=== PATIENT | male | born 1965 | race Caucasian/White ===

== ENCOUNTER 2020-08-22 17:27 | Emergency (ER) | payer OTHER ==
--- OUTSIDE RECORDS SUMMARY | 2020-08-22 17:44 | XMS REPORT | Continuity of Care Document ---
:1965 Author Organization [facility] t Address [address] [place] [address] Care Team Providers Name Role Phone Emmanuel Benoit Primary Care Physician FELICIA GARCIA Attending Clinician Unavailable KEYANNA CRUZ Attending Clinician Unavailable CHRISTEL Admitting Clinician Unavailable Problems Condition Condition Condition Status Onset Resolution Last Treating Co mments Source Name Details Category Date Date Treatment Clinician Date NSTEMI NSTEMI Disease Active 2016-[address] [facility] [address] (non-ST ([facility] - elevated elevated 00:00: Medica l myocardial myocardial 00 Ce nter infarction infarction ) ) Allergies, Adverse Reactions, Alerts This patient has no known allergies or adverse reactions. Social History Social Habit Start Date Stop Date Quantity Comments Source Sex Assigned At [facility] Tobacco use and 2017-05-01 2017-05-01 Never used [facility] - exposure 00:00:00 00:00:00 [facility] Alcohol intake 2017-05-01 2017-05-01 Current [facility] 00:00:00 00:00:00 non-drinker of [facility] nter alcohol (finding) Smoking Status Start Date Stop Date Source Never smoker [facility] Medications Ordered Filled Start Stop Current Ordering Indication Dosage Frequency Signature Comments Components Source Medication Medication Date Date Medication? Clinician (SIG) Name Name HYDROcodone 2016-06 Yes 1{tbl} Take [address] -acetaminop 1-24 tablet by Micha bustos (NORCO 16:58: mouth Medica l 10-325) 04 every 6 Center 10-325 mg (six) per tablet hours as needed for Pain. cephalexin 2016-06 Yes 500mg [id number] Take [address] [facility] (KEFLEX) 1-24 [id number] mg by Luke s - 500 MG 16:58: 3D mouth 3 Medical capsule 04 (three) Center times daily. cyclobenzap 2016-06 Yes 10mg Take [address] [facility] [address] [facility] 1-24 by mouth 3 [facility] - (FLEXERIL) 16:58: (three) Medi destiny 10 MG 04 times Center tablet daily as needed for Muscle spasms. ticagrelor 2016-06 Yes 90mg Q.5D [facility] ([facility] 1-24 tablet (90 Micha es - 90 mg Tab 00:00: mg total) Med ical tablet 00 by mouth 2 Center (two) times daily. meclizine Yes 25mg Take [address] [facility] [address] (ANTIVERT) 1-12 tablet (25 Micha es - 25 mg 00:00: mg total) Medical tablet 00 by mouth 3 Center (three) times daily as needed for Dizziness for up to 15 doses. ondansetron Yes 4mg Take [address] [facility] [address] (ZOFRAN-ODT 1-12 tablet (4 Micha es - ) 4 MG 00:00: mg total) Medica l disintegrat 00 by mouth Cent er ing tablet every 8 (eight) hours as needed for Nausea for up to 10 doses. Procedures This patient has no known procedures. Encounters Start End Encounter Admission Attending Care Care Encounter Source Date/Time Date/Time Type Type Clinicians Facility Department ID 2020-05-22 2020-05-22 Outpatient [facility] [id number] TW 05:56:00 05:56:00 Results Test Description Test Time Test Comments Results Result [facility]ly [facility] e Comments CT, EXTREMITY, 2017-05-02 FINAL REPORT PATIENT LOWER, WITH 01:51:00 ID: [id number] CT, CONTRAST, RIGHT EXTREMITY, LOWER, WITH CONTRAST, RIGHT INDICATION: post cath hematoma and ecchymosis COMPARISON: None TECHNIQUE: Post-contrast CT imaging of the right hip. Coronal and sagittal reformatted images are also provided. DOSE REDUCTION: Dose modulation, iterative reconstruction, and/or weight-based adjustment of the mA/kV was utilized to reduce the radiation dose to as low as reasonably achievable. FINDINGS:Soft tissue structures:Subcutaneo us stranding in the area of recent percutaneous intervention. No organized fluid is evident. There is no extravasation of vascular contrast. Muscular compartments are within normal limits. No discrete or superficial soft tissue collection is present. Small volume fluid noted in the midportion of the right inguinal canal. Osseous structures:There is no fracture or malalignment. Presumed remote traumatic injury to the right inferior pubic ramus. Joint spaces are preserved. IMPRESSION: Findings compatible with postprocedural small superficial hematoma in the right inguinal region. No evidence for active bleeding or abscess formation. Signed: JR Cardenas Robert MDReport Verified Date/Time: 05/02/2017 01:51:05 Reading Location: [facility] C013T Transitional Reading Room HROMBIN TIME/INR 2017-05-02 00:39:00 Test Item Value Reference Range Interpretation Comme nts PROTIME (BEAKER) (test code = 759) 10.7 seconds 9.8-12.0 INR (BEAKER) (test code = 370) 1.0 <=5.9 RECOMMENDED COUMADIN/WARFARIN INR THERAPY RANGESSTANDARD DOSE: 2.0 - 3.0 Includes: PROPHYLAXIS forvenous thrombosis, systemic embolization; TREATMENT for venous thrombosis and/or pulmonary embolus.HIGH RISK: Target INR is 2.5-3.5 for patients with mechanical heart valves.BASIC METABOLIC [id number] 00:36:00 Test Item Value Reference Range Interpretation Comments SODIUM (BEAKER) 136 meq/L 135-148 (test code = 381) POTASSIUM (BEAKER) 3.9 meq/L 3.6-5.5 (test code = 379) CHLORIDE (BEAKER) 101 meq/L 98-106 (test code = 382) CO2 (BEAKER) (test 27 meq/L 20-29 code = 355) BLOOD UREA NITROGEN 20 mg/dL 10-26 (BEAKER) (test code = 354) CREATININE (BEAKER) 1.12 mg/dL 0.50-1.20 (test code = 358) GLUCOSE RANDOM 90 mg/dL 70-110 (BEAKER) (test code = 652) CALCIUM (BEAKER) 9.6 mg/dL 8.5-10.5 (test code = 697) EGFR (BEAKER) (test 69 mL/min/1.73 ESTIMA TRENT GFR IS code = 1092) sq m NOT ACCURATE CREATININE CLEARANCE IN PREDICTING GLOMERULAR FILTRATION RATE . ESTIMATED GFR I S NOT APPLICABLE FOR DIALYSIS PATIEN TS. CBC (HEMOGRAM ONLY)2017-05-02 00:26:00 Test Item Value Reference Range Interpretation Comments WHITE BLOOD CELL COUNT (BEAKER) 8.9 K/ L 4.0-10.0 (test code = 775) RED BLOOD CELL COUNT (BEAKER) 5.81 M/ L 4.20-5.80 H (test code = 761) HEMOGLOBIN (BEAKER) (test code = 14.9 GM/DL 13.0-16.8 410) HEMATOCRIT (BEAKER) (test code = 45.5 % 40.0-50.0 411) MEAN CORPUSCULAR VOLUME (BEAKER) 78.3 fL 82.0-98.0 L (test code = 753) MEAN CORPUSCULAR HEMOGLOBIN 25.6 pg 27.0-33.0 L (BEAKER) (test code = 751) MEAN CORPUSCULAR HEMOGLOBIN CONC 32.7 GM/DL 32.0-36.0 (BEAKER) (test code = 752) RED CELL DISTRIBUTION WIDTH 17.3 % 10.3-14.2 H (BEAKER) (test code = 412) PLATELET COUNT (BEAKER) (test 289 K/CU MM 150-430 code = 756) MEAN PLATELET VOLUME (BEAKER) 9.2 fL 6.5-10.5 (test code = 754) NUCLEATED RED BLOOD CELLS 0 /100 WBC 0-0 (BEAKER) (test code = 413) TROPONIN [id number] 05:18:00 Test Item Value Reference Range Interpretation Comments TROPONIN I (BEAKER) (test code = 3.57 ng/mL 0.00-0.15 397) Troponin I (TnI) levels must be interpreted in the context of the presenting symptoms and the clinical findings. Elevated TnI levels indicate myocardial damage, but are not specific for ischemic heart disease. Elevated TnI levels are seen in patients with other cardiac conditions (including myocarditis and congestive heart failure), and slight TnI elevations occur in patients with other conditions, including sepsis, renal failure, acidosis, acute neurological disease, and persistent tachyarrhythmia.CREATINE KINASE (CK), TOTAL AND MB 2017-04-27 05:15:00 Test Item Value Reference Range Interpretation Comments CREATINE KINASE TOTAL (BEAKER) 1097 U/L 40-250 H (test code = 380) CREATINE KINASE-MB (BEAKER) (test 10.8 ng/mL 0.0-4.9 H code = 750) CREATINE KINASE-MB INDEX (BEAKER) 1.0 % (test code = 395) CK-MB Reference Range:<5 Normal5-10 Borderline>10 AbnormalLIPID PANEL 2017-04-27 05:11:00 Test Item Value Reference Range Interpretation Comments TRIGLYCERIDES (BEAKER) (test code = 69 mg/dL 540) CHOLESTEROL (BEAKER) (test code = 107 mg/dL 631) HDL CHOLESTEROL (BEAKER) (test code 34 mg/dL = 976) LDL CHOLESTEROL CALCULATED (BEAKER) 59 mg/dL (test code = 633) Triglyceride Reference Range: Low Risk <150 Borderline 150-199 High Risk 200-499 Very High Risk >=500Cholesterol Reference Range: Low Risk <200 Borderline 200-239 High Risk >240HDL Cholesterol Reference Range: Low Risk >=60 High Risk <40LDL Cholesterol Reference Range: Optimal <100 Near Optimal 100-129 Borderline 130-159 High 160-189 Very High >=[id number] 05:07:00 Test Item Value Reference Range Interpretation Comments MAGNESIUM (BEAKER) (test code = 1.7 mg/dL 1.5-3.0 627) BASIC METABOLIC [id number] 05:07:00 Test Item Value Reference Range Interpretation Comments SODIUM (BEAKER) 138 meq/L 135-148 (test code = 381) POTASSIUM (BEAKER) 3.8 meq/L 3.6-5.5 (test code = 379) CHLORIDE (BEAKER) 106 meq/L 98-106 (test code = 382) CO2 (BEAKER) (test 25 meq/L 20-29 code = 355) BLOOD UREA NITROGEN 10 mg/dL 10-26 (BEAKER) (test code = 354) CREATININE (BEAKER) 1.13 mg/dL 0.50-1.20 (test code = 358) GLUCOSE RANDOM 94 mg/dL 70-110 (BEAKER) (test code = 652) CALCIUM (BEAKER) 8.4 mg/dL 8.5-10.5 L (test code = 697) EGFR (BEAKER) (test 68 mL/min/1.73 ESTIMA TRENT GFR IS code = 1092) sq m NOT ACCURATE CREATININE CLEARANCE IN PREDICTING GLOMERULAR FILTRATION RATE . ESTIMATED GFR I S NOT APPLICABLE FOR DIALYSIS PATIEN TS. HEMOGLOBIN [id number] 04:52:00 Test Item Value Reference Range Interpretation Comments HEMOGLOBIN A1C (BEAKER) (test code = 5.1 % 4.3-6.1 368) CBC W/PLT COUNT & AUTO [id number] 04:38:00 Test Item Value Reference Range Interpretation Comments WHITE BLOOD CELL COUNT (BEAKER) 10.7 K/ L 4.0-10.0 H (test code = 775) RED BLOOD CELL COUNT (BEAKER) 5.35 M/ L 4.20-5.80 (test code = 761) HEMOGLOBIN (BEAKER) (test code = 13.5 GM/DL 13.0-16.8 410) HEMATOCRIT (BEAKER) (test code = 42.0 % 40.0-50.0 411) MEAN CORPUSCULAR VOLUME (BEAKER) 78.5 fL 82.0-98.0 L (test code = 753) MEAN CORPUSCULAR HEMOGLOBIN 25.2 pg 27.0-33.0 L (BEAKER) (test code = 751) MEAN CORPUSCULAR HEMOGLOBIN CONC 32.1 GM/DL 32.0-36.0 (BEAKER) (test code = 752) RED CELL DISTRIBUTION WIDTH 18.1 % 10.3-14.2 H (BEAKER) (test code = 412) PLATELET COUNT (BEAKER) (test 243 K/CU MM 150-430 code = 756) MEAN PLATELET VOLUME (BEAKER) 9.5 fL 6.5-10.5 (test code = 754) NUCLEATED RED BLOOD CELLS 0 /100 WBC 0-0 (BEAKER) (test code = 413) NEUTROPHILS RELATIVE PERCENT 68 % (BEAKER) (test code = 429) LYMPHOCYTES RELATIVE PERCENT 24 % (BEAKER) (test code = 430) MONOCYTES RELATIVE PERCENT 8 % (BEAKER) (test code = 431) EOSINOPHILS RELATIVE PERCENT 1 % (BEAKER) (test code = 432) BASOPHILS RELATIVE PERCENT 0 % (BEAKER) (test code = 437) NEUTROPHILS ABSOLUTE COUNT 7.21 K/ L 1.80-8.00 (BEAKER) (test code = 670) LYMPHOCYTES ABSOLUTE COUNT 2.54 K/ L 1.48-4.50 (BEAKER) (test code = 414) MONOCYTES ABSOLUTE COUNT (BEAKER) 0.80 K/ L 0.00-1.30 (test code = 415) EOSINOPHILS ABSOLUTE COUNT 0.10 K/ L 0.00-0.50 (BEAKER) (test code = 416) BASOPHILS ABSOLUTE COUNT (BEAKER) 0.02 K/ L 0.00-0.20 (test code = 417) TROPONIN [id number] 13:30:00 Test Item Value Reference Range Interpretation Comments TROPONIN I (BEAKER) (test code = 4.24 ng/mL 0.00-0.15 HH 397) Troponin I (TnI) levels must be interpreted in the context of the presenting symptoms and the clinical findings. Elevated TnI levels indicate myocardial damage, but are not specific for ischemic heart disease. Elevated TnI levels are seen in patients with other cardiac conditions (including myocarditis and congestive heart failure), and slight TnI elevations occur in patients with other conditions, including sepsis, renal failure, acidosis, acute neurological disease, and persistent tachyarrhythmia.CREATINE KINASE (CK), TOTAL AND MB 2017-04-26 13:26:00 Test Item Value Reference Range Interpretation Comments CREATINE KINASE TOTAL (BEAKER) 1825 U/L 40-250 H (test code = 380) CREATINE KINASE-MB (BEAKER) (test 26.3 ng/mL 0.0-4.9 H code = 750) CREATINE KINASE-MB INDEX (BEAKER) 1.4 % (test code = 395) CK-MB Reference Range:<5 Normal5-10 Borderline>10 AbnormalLIPID PANEL 2017-04-26 13:26:00 Test Item Value Reference Range Interpretation Comments TRIGLYCERIDES (BEAKER) 78 mg/dL Speci men slightly (test code = 540) hemolyzed CHOLESTEROL (BEAKER) 119 mg/dL Specime n slightly (test code = 631) hemolyzed HDL CHOLESTEROL (BEAKER) 32 mg/dL (test code = 976) LDL CHOLESTEROL 71 mg/dL CALCULATED (BEAKER) (test code = 633) Triglyceride Reference Range: Low Risk <150 Borderline 150-199 High Risk 200-499 Very High Risk >=500Cholesterol Reference Range: Low Risk <200 Borderline 200-239 High Risk >240HDL Cholesterol Reference Range: Low Risk >=60 High Risk <40LDL Cholesterol Reference Range: Optimal <100 Near Optimal 100-129 Borderline 130-159 High 160-189 Very High >=190TROPONIN [id number] 06:52:00 Test Item Value Reference Range Interpretation Comments TROPONIN I (BEAKER) (test code = 2.68 ng/mL 0.00-0.15 397) Troponin I (TnI) levels must be interpreted in the context of the presenting symptoms and the clinical findings. Elevated TnI levels indicate myocardial damage, but are not specific for ischemic heart disease. Elevated TnI levels are seen in patients with other cardiac conditions (including myocarditis and congestive heart failure), and slight TnI elevations occur in patients with other conditions, including sepsis, renal failure, acidosis, acute neurological disease, and persistent tachyarrhythmia.CREATINE KINASE (CK), TOTAL AND MB 2017-04-26 06:52:00 Test Item Value Reference Range Interpretation Comments CREATINE KINASE TOTAL (BEAKER) 1494 U/L 40-250 H (test code = 380) CREATINE KINASE-MB (BEAKER) (test 22.1 ng/mL 0.0-4.9 H code = 750) CREATINE KINASE-MB INDEX (BEAKER) 1.5 % (test code = 395) CK-MB Reference Range:<5 Normal5-10 Borderline>10 AbnormalCT, CHEST WITH IV CONTRAST- PE TEST [id number] 04:49:00Reason for exam:- >EXTREMITY PAINshoulderWhat is the patient's sedation requirement?->No SedationFINAL REPORT CLINICAL HISTORY: Chest pain, elevated d-dimer, recent right upper extremity surgery FINDINGS: Multiple axial images of the chest were performed after the uncomplicated administration of IV contrast, utilizing a pulmonary embolism protocol. Post-processing coronal r eformats were created and interpreted. This exam was performed according to our departmental dose-optimization program, which includes automated exposure control, adjustment of the mA and/or kV according to patient size and/or use of the iterative reconstruction technique. Study quality:Adequate. Comparison:None. Pulmonary arteries: No pulmonary embolism. Lung parenchyma: Curvilinear opacity in thedependent right lung, atelectasis versus scarring Pleural effusion: None. Pneumothorax: None. Tracheobronchial tree: No significant findings. Pulmonary vasculature: No significant findings. Cardiac contours and great vessels: No significant findings. Mediastinum: No significant findings. Lymph Nodes: No adenopathy in the mediastinum or iraj. Skeleton: No acute abnormality. Other: Soft tissue gas in the region of the right deltoid with adjacent subcutaneous and axillary fat stranding, likely related to recent postoperative status. Limited images of upper abdomen: No significant findings. IMPRESSION:No pulmonary embolism. Postsurgical changes in the right shoulder. Curvilinear opacity in the rightlung probably reflects atelectasis. Signed: Marc Parks Verified Date/Time: 04/26/2017 04:49:00 Reading Location: [address] Reading Room VENOUS DOPPLER ARM, [id number] 04:12:00Reason for exam:->EXTREMITY PAINshoulderFINAL REPORT HISTORY: Pain Realtime grayscale, color and spectral Doppler ultrasound of the left upper extremity was performed to evaluate for DVT. There is no occlusive thrombus within the left internal jugular, subclavian, axillary, brachial, basilic, cephalic, radial or ulnar veins. There is normal color and spectral Doppler appearance to the veins of the left upper extremity. IMPRESSION: No left upper extremity DVT. Signed: Marc Parks Verified Date/Time: 04/26/2017 04:12:13 Reading Location: [address] Reading Room B-TYPE NATRIURETIC FACTOR (BNP)2017-04-26 02:46:00 Test Item Value Reference Range Interpretation Comments B-TYPE NATRIURETIC PEPTIDE (BEAKER) 10 pg/mL 0-100 (test code = 700) URINALYSIS WITH MICROSCOPIC IF [id number] 02:40:00 Test Item Value Reference Range Interpretation Comments COLOR (BEAKER) (test code = 470) Yellow CLARITY (BEAKER) (test code = 469) Clear SPECIFIC GRAVITY UA (BEAKER) (test 1.025 1.001-1.035 code = 468) PH UA (BEAKER) (test code = 467) 6.0 5.0-8.0 PROTEIN UA (BEAKER) (test code = Negative Negative 464) GLUCOSE UA (BEAKER) (test code = 250 mg/dL Negative A 365) KETONES UA (BEAKER) (test code = Trace Negative A 371) BILIRUBIN UA (BEAKER) (test code = Negative Negative 462) BLOOD UA (BEAKER) (test code = 461) Negative Negative NITRITE UA (BEAKER) (test code = Negative Negative 465) LEUKOCYTE ESTERASE UA (BEAKER) Negative Negative (test code = 466) UROBILINOGEN UA (BEAKER) (test code 0.2 mg/dL 0.2-1.0 = 463) SOURCE(BEAKER) (test code = 2795) TROPONIN [id number] 02:17:00 Test Item Value Reference Range Interpretation Comments TROPONIN I (BEAKER) (test code = 0.48 ng/mL 0.00-0.15 HH 397) Troponin I (TnI) levels must be interpreted in the context of the presenting symptoms and the clinical findings. Elevated TnI levels indicate myocardial damage, but are not specific for ischemic heart disease. Elevated TnI levels are seen in patients with other cardiac conditions (including myocarditis and congestive heart failure), and slight TnI elevations occur in patients with other conditions, including sepsis, renal failure, acidosis, acute neurological disease, and persistent tachyarrhythmia.CREATINE KINASE (CK), TOTAL AND MB 2017-04-26 02:17:00 Test Item Value Reference Range Interpretation Comments CREATINE KINASE TOTAL (BEAKER) 1080 U/L 40-250 H (test code = 380) CREATINE KINASE-MB (BEAKER) (test 10.4 ng/mL 0.0-4.9 H code = 750) CREATINE KINASE-MB INDEX (BEAKER) 1.0 % (test code = 395) CK-MB Reference Range:<5 Normal5-10 Borderline>10 AbnormalCOMPREHENSIVE METABOLIC [id number] 02:07:00 Test Item Value Reference Range Interpretation Comments TOTAL PROTEIN 7.1 gm/dL 6.0-8.5 (BEAKER) (test code = 770) ALBUMIN (BEAKER) 4.2 g/dL 3.5-5.0 (test code = 1145) ALKALINE PHOSPHATASE 51 U/L 30-115 (BEAKER) (test code = 346) BILIRUBIN TOTAL 0.9 mg/dL 0.1-1.2 (BEAKER) (test code = 377) SODIUM (BEAKER) (test 137 meq/L 135-148 code = 381) POTASSIUM (BEAKER) 4.4 meq/L 3.6-5.5 (test code = 379) CHLORIDE (BEAKER) 104 meq/L 98-106 (test code = 382) CO2 (BEAKER) (test 23 meq/L 20-29 code = 355) BLOOD UREA NITROGEN 14 mg/dL 10-26 (BEAKER) (test code = 354) CREATININE (BEAKER) 1.31 mg/dL 0.50-1.20 H (test code = 358) GLUCOSE RANDOM 133 mg/dL 70-110 H (BEAKER) (test code = 652) CALCIUM (BEAKER) 9.0 mg/dL 8.5-10.5 (test code = 697) AST (SGOT) (BEAKER) 27 U/L 5-40 (test code = 353) ALT (SGPT) (BEAKER) 16 U/L 5-50 (test code = 347) EGFR (BEAKER) (test 58 mL/min/1.73 ESTIMA TRENT GFR IS code = 1092) sq m NOT ACCURATE CREATININE CLEARANCE IN PREDICTING GLOMERULAR FILTRATION RATE . ESTIMATED GFR I S NOT APPLICABLE FOR DIALYSIS PATIEN TS. [id number] 02:02:00 Test Item Value Reference Range Interpretation Comments D-DIMER QUANTITATIVE (BEAKER) 0.68 MG/L FEU <0.50 H (test code = 671) REGARDING D-DIMER RESULTS: The 98% NPV (Negative Predictive Value) for DVT/PE exclusion is 0.50 mg/LFEU as suggested by the pantograph ii engraver and as approved by the FDA.RAD, CHEST, 1 VIEW, NON [id number] 01:56:00Reason for exam:- >EXTREMITY PAINshoulderFINAL REPORT EXAMINATION: AP PORTABLE CHEST RADIOGRAPH CLINICAL INDICATION:Pain IMPRESSION: No comparison studies are available. Thin linear opacities are noted in the perihilar regions. The morphology and distribution favor subsegmental atelectasis or scarring. No evidence of pulmonary edema, pleural effusion or pneumothorax. The heart size is normal. Mediastinal contours are sharp. No evidence of an acute osseous abnormality.. Signed: Sulaiman Sierra MDReport Verified Date/Time: 04/26/2017 01:56:22 Reading Location: [facility] C013T Transitional Reading Room CBC W/PLT COUNT & AUTO [id number] 01:50:00 Test Item Value Reference Range Interpretation Comments WHITE BLOOD CELL COUNT (BEAKER) 13.9 K/ L 4.0-10.0 H (test code = 775) RED BLOOD CELL COUNT (BEAKER) 6.02 M/ L 4.20-5.80 H (test code = 761) HEMOGLOBIN (BEAKER) (test code = 15.2 GM/DL 13.0-16.8 410) HEMATOCRIT (BEAKER) (test code = 47.0 % 40.0-50.0 411) MEAN CORPUSCULAR VOLUME (BEAKER) 78.1 fL 82.0-98.0 L (test code = 753) MEAN CORPUSCULAR HEMOGLOBIN 25.2 pg 27.0-33.0 L (BEAKER) (test code = 751) MEAN CORPUSCULAR HEMOGLOBIN CONC 32.3 GM/DL 32.0-36.0 (BEAKER) (test code = 752) RED CELL DISTRIBUTION WIDTH 17.4 % 10.3-14.2 H (BEAKER) (test code = 412) PLATELET COUNT (BEAKER) (test 290 K/CU MM 150-430 code = 756) MEAN PLATELET VOLUME (BEAKER) 9.7 fL 6.5-10.5 (test code = 754) NUCLEATED RED BLOOD CELLS 0 /100 WBC 0-0 (BEAKER) (test code = 413) NEUTROPHILS RELATIVE PERCENT 88 % (BEAKER) (test code = 429) LYMPHOCYTES RELATIVE PERCENT 7 % (BEAKER) (test code = 430) MONOCYTES RELATIVE PERCENT 4 % (BEAKER) (test code = 431) EOSINOPHILS RELATIVE PERCENT 0 % (BEAKER) (test code = 432) BASOPHILS RELATIVE PERCENT 1 % (BEAKER) (test code = 437) NEUTROPHILS ABSOLUTE COUNT 12.21 K/ L 1.80-8.00 H (BEAKER) (test code = 670) LYMPHOCYTES ABSOLUTE COUNT 1.03 K/ L 1.48-4.50 L (BEAKER) (test code = 414) MONOCYTES ABSOLUTE COUNT (BEAKER) 0.59 K/ L 0.00-1.30 (test code = 415) EOSINOPHILS ABSOLUTE COUNT 0.00 K/ L 0.00-0.50 (BEAKER) (test code = 416) BASOPHILS ABSOLUTE COUNT (BEAKER) 0.10 K/ L 0.00-0.20 (test code = 417)
[2020-08-22 18:28] LABS: Urine Bacteria <20 /HPF (NONE SEEN); Urine RBC <5 /HPF (NONE SEEN)
[2020-08-22] MEDS ORDERED: ACETAMINOPHEN 500 MG TAB ONE (18:58)
[2020-08-22] MEDS ORDERED: MORPHINE 4 MG/ML SYR ONE (18:59)
[2020-08-22] MEDS ORDERED: ONDANSETRON 4 MG/2 ML VIAL ONE (18:59)
[2020-08-22] MEDS ORDERED: NA CHLORIDE 0.9% 1,000 ML ONE (18:59)
[2020-08-22 19:37] LABS: Absolute Lymphocytes (CBC) 1.2 K/uL (0.7-4.9); Basophils % 0.5 % (0-1.3); Lymphocytes % 10.3 % (15.3-44.8); MPV 9.6 fL (7.6-11.3); RBC Red Blood Cell Count 4.95 M/uL (4.33-5.43)
[2020-08-22] MEDS ORDERED: CEFTRIAXONE/SWI 1gm 1 GM/10 ML SYR ONE (19:38)
[2020-08-22 19:51] LABS: Albumin 3.5 g/dL (3.4-5.0); Bilirubin Direct 0.2 mg/dL (0-0.2); Potassium 3.7 mmol/L (3.5-5.1); Protein, Total 6.9 g/dL (6.4-8.2)
[2020-08-22 20:09] LABS: Urine Blood TRACE (NEG); Urine Glucose NEGATIVE (NEG); Urine Protein TRACE (NEG); Urine Specific Gravity 1.025 (1.005-1.030); Urine pH 5.5 (5.0-7.0)
--- NOTE | 2020-08-22 20:36 | RAD REPORT ---
EXAM DESCRIPTION: CTAbdomen Pelvis W Contrast - 08/22/2020 8:16 pm CLINICAL HISTORY: Abdominal pain. fever, perineum pain COMPARISON: No comparisons TECHNIQUE: Biphasic CT imaging of the abdomen and pelvis was performed with 100 ml non-ionic IV cont rast. All CT scans are performed using dose optimization technique as appropriate and may include automated exposure control or mA/KV adjustment according to patient size. FINDINGS: The lung bases are clear. The liver, spleen, pancreas, adrenal glands and kidneys are within normal limits. No bowel obstruction, free air, free fluid or abscess. Appendectomy. No evidence of significant lym phadenopathy. No suspicious bony findings. The prostate gland appears somewhat edematous and prostatitis is a possi bility. IMPRESSION: Possible findings of mild prostatitis.
[2020-08-22] MEDS ORDERED: PHENAZOPYRIDINE 100MG TAB PO ONE (21:24)
[2020-08-22] MEDS ORDERED: KETOROLAC 30 MG/ML INJ ONE (21:24)
[2020-08-22] MEDS ORDERED: levoFLOXacin 500 MG TAB ONE (21:25)
[2020-08-22] MEDS ORDERED: levoFLOXacin 250 MG TAB ONE (21:25)
--- NOTE | 2020-08-22 21:25 | EDPHYS ---
Physician Documentation [facility] Name: Andrew Prasad Age: 55 yrs Sex: Male : 1965 Arrival Date: 08/22/2020 Time: 17:31 Bed 7 Private MD: ED Physician Bob Childress HPI: 08/22 18:05 This 55 yrs old Male presents to ER via Ambulatory with complaints of cp Possible Kidney Stone. 18:05 The patient presents with urinary symptoms, dysuria, urinary frequency, pain in cp perineum. Onset: The symptoms/episode began/occurred 2 day(s) ago. 18:05 Associated signs and symptoms: Pertinent positives: fever, Pertinent negatives: cp abdominal pain, constipation, diarrhea, hematuria, vomiting. Severity of symptoms: in the emergency department the symptoms are unchanged, despite home interventions. Historical: - Allergies: 17:57 Azithromycin; ca1 - Home Meds: 17:57 atorvastatin oral oral [Active]; Metoprolol Tartrate Oral [Active]; Aspirin Oral ca1 [Active]; - PMHx: 17:57 Myocardial infarction; ca1 - PSHx: 17:57 Heart stents; Hernia repair; ca1 - Immunization history:: Flu vaccine is not up to date. - Social history:: Smoking status: Patient denies any tobacco usage or history of. ROS: 18:10 Constitutional: Positive for chills, fever. cp 18:10 Eyes: Negative for injury, pain, redness, and discharge. cp 18:10 ENT: Negative for ear pain, sore throat, difficulty swallowing, difficulty handling secretions. 18:10 Cardiovascular: Negative for chest pain. 18:10 Respiratory: Negative for cough, shortness of breath, wheezing. 18:10 Abdomen/GI: Negative for abdominal pain, nausea, vomiting, and diarrhea. 18:10 : Positive for urinary symptoms, Negative for testicular pain 18:10 Skin: Negative for rash. 18:10 Neuro: Negative for altered mental status, headache, weakness. 18:10 All other systems are negative. Exam: 18:15 Constitutional: The patient appears in no acute distress, alert, awake, non-toxic, well cp developed, well nourished, febrile. 18:15 Head/Face: Normocephalic, atraumatic. cp 18:15 Eyes: Periorbital structures: appear normal, Conjunctiva: normal, no exudate, no injection, Sclera: no appreciated abnormality, Lids and lashes: appear normal, bilaterally. 18:15 ENT: External ear(s): are unremarkable, Nose: is normal, Posterior pharynx: Airway: normal, no evidence of obstruction. 18:15 Neck: ROM/movement: is normal, is supple, without pain, no range of motions limitations. 18:15 Chest/axilla: Inspection: normal, Palpation: is normal, no crepitus, no tenderness. 18:15 Cardiovascular: Rate: tachycardic, Rhythm: regular. 18:15 Respiratory: the patient does not display signs of respiratory distress, Respirations: normal, no use of accessory muscles, labored breathing, is not present, Breath sounds: are clear throughout, no decreased breath sounds, no stridor, no wheezing. 18:15 Abdomen/GI: Inspection: abdomen appears normal, Bowel sounds: active, all quadrants, Palpation: abdomen is soft and non-tender, in all quadrants, rebound tenderness, is not appreciated, voluntary guarding, is not appreciated, involuntary guarding, is not appreciated. 18:15 Back: CVA tenderness, is absent. 18:15 Skin: cellulitis, is not appreciated, no rash present. 18:15 Neuro: Orientation: to person, place \T\ time. Mentation: is normal. Vital Signs: 17:51 BP 142 / 86; Pulse 101; Resp 18 S; Temp 102.2(O); Pulse Ox 97% on R/A; Weight 99.79 kg ca1 (R); Height 5 ft. 8 in. (172.72 cm) (R); Pain 8/10; 20:54 BP 117 / 74; Pulse 85; Resp 18; Temp 98.8(O); Pulse Ox 96% on R/A; mg2 21:40 BP 127 / 70; Pulse 80; Resp 18; Temp 98.7; Pulse Ox 100% ; ea 17:51 Body Mass Index 33.45 (99.79 kg, 172.72 cm) ca1 MDM: 18:00 Patient medically screened. ame 19:00 Differential diagnosis: UTI, urinary retention, prostatitis, urethritis, kidney stone. cp 21:24 Data reviewed: vital signs, nurses notes, lab test result(s), radiologic studies, CT cp scan, and as a result, I will discharge patient. 21:24 Counseling: I had a detailed discussion with the patient and/or guardian regarding: the cp historical points, exam findings, and any diagnostic results supporting the discharge/admit diagnosis, lab results, radiology results, the need for outpatient follow up, a urologist. 21:24 Response to treatment: the patient's symptoms have markedly improved after treatment. cp 21:24 ED course: VSS. Fever resolved. Patient appears non-toxic and tolerating po meds and cp fluids. Will discharge to home for continued monitoring. 08/22 18:00 Order name: Urine Microscopic Only; Complete Time: 19:15 cp 08/22 20:23 Interpretation: Normal except: UWBC 5-10. cp 08/22 18:14 Order name: Basic Metabolic Panel; Complete Time: 20:03 cp 08/22 20:38 Interpretation: Normal except: CRE 1.32; GFR 57. cp 08/22 18:14 Order name: CBC with Diff; Complete Time: 20:03 cp 08/22 20:03 Interpretation: Normal except: WBC 11.20; MALAIKA% 82.2; LYM% 10.3; NEUT A 9.2. cp 08/22 18:14 Order name: Hepatic Function; Complete Time: 20:03 cp 08/22 20:55 Interpretation: Normal except: A/G 1.0. cp 08/22 18:14 Order name: Lipase; Complete Time: 20:03 cp 08/22 18:14 Order name: Lactate; Complete Time: 20:23 cp 08/22 18:14 Order name: Procalcitonin; Complete Time: 20:55 cp 08/22 20:55 Interpretation: Abnormal: Procalcitonin 0.10. cp 08/22 18:14 Order name: Blood Culture Adult (2) cp 08/22 18:16 Order name: Urine Dipstick--Ancillary (enter results); Complete Time: 20:23 eb 08/22 18:29 Order name: Urine Culture EDMS 08/22 19:16 Order name: CT Abd/Pelvis - IV Contrast Only; Complete Time: 20:38 cp 08/22 18:00 Order name: Urine Dipstick-Ancillary (obtain specimen); Complete Time: 18:14 cp 08/22 18:14 Order name: IV Saline Lock; Complete Time: 19:02 cp 08/22 18:14 Order name: Labs collected and sent; Complete Time: 19:02 cp 08/22 20:53 Order name: Vital Signs: please update to include temp; Complete Time: 20:56 cp Administered Medications: 19:00 Drug: NS 0.9% 1000 ml Route: IV; Rate: 1000 ml; Site: right antecubital; bp 19:00 Drug: Tylenol 1000 mg Route: PO; bp 20:00 Follow up: Response: No adverse reaction mg2 19:00 Drug: morphine 4 mg Route: IVP; Site: right antecubital; bp 19:59 Follow up: Response: No adverse reaction mg2 19:00 Drug: Zofran (Ondansetron) 4 mg Route: IVP; Site: right antecubital; bp 19:59 Follow up: Response: No adverse reaction mg2 20:27 Drug: Rocephin - (cefTRIAXone) 1 grams Route: IVPB; Infused Over: 30 mins; Site: right ea antecubital; 21:47 Follow up: Response: No adverse reaction; IV Status: Completed infusion ea 21:23 Drug: TORadol - Ketorolac 15 mg Route: IVP; Site: right antecubital; ea 21:47 Follow up: Response: No adverse reaction ea 21:23 Drug: Pyridium 200 mg Route: PO; ea 21:47 Follow up: Response: No adverse reaction ea 21:24 Drug: LevaQUIN 750 mg Route: PO; ea 21:47 Follow up: Response: No adverse reaction ea Disposition: 08/23 01:21 Co-signature as Attending Physician, Bob Childress MD I agree with the assessment and ame plan of care. Disposition: 08/22/20 21:24 Discharged to Home. Impression: Acute prostatitis. - Condition is Stable. - Discharge Instructions: Prostatitis. - Prescriptions for Ibuprofen 800 mg Oral Tablet - take 1 tablet by ORAL route every 8 hours As needed take with food; 30 tablet. Levaquin 500 mg Oral Tablet - take 1 tablet by ORAL route once daily for 14 days start evening of 08-23-2020; 14 tablet. Tramadol 50 mg Oral Tablet - take 1 tablet by ORAL route every 8 hours as needed; 12 tablet. - Medication Reconciliation Form, Thank You Letter, Antibiotic Education, Prescription Opioid Use form. - Follow up: Private Physician; When: 2 - 3 days; Reason: Recheck today's complaints. - Problem is new. - Symptoms have improved. Signatures: Dispatcher [employer] EDBob Wilhelm MD MD cha Page, Corey, PA PA cp Antunez, Elena, RN RN Eduard Luna RN RN Migdalia Ramires RN RN ca1 Adam Orellana RN mg2 Corrections: (The following items were deleted from the chart) 08/22 21:48 21:24 08/22/2020 21:24 Discharged to Home. Impression: Acute prostatitis. Condition is ea Stable. Forms are Medication Reconciliation Form, Thank You Letter, Antibiotic Education, Prescription Opioid Use. Follow up: Private Physician; When: 2 - 3 days; Reason: Recheck today's complaints. Problem is new. Symptoms have improved. cp
--- NOTE | 2020-08-22 21:25 | ER ---
Nurse's Notes [facility] Name: Andrew Prasad Age: 55 yrs Sex: Male : 1965 Arrival Date: 08/22/2020 Time: 17:31 Bed 7 Private MD: Diagnosis: Acute prostatitis Presentation: 08/22 17:51 Chief complaint: Patient states: Groin pain since yesterday, more on the perineal area. ca1 Reports burning with urination, urinary urgency and frequency. Also reports L lower back. Denies N/V. Denies HX of Kidney stones. Reports HX of L inguinal hernia, repaired. Coronavirus screen: Client denies travel out of the [place] in the last 14 days. fever, Client presents with at least one sign or symptom that may indicate coronavirus-19. Standard/surgical mask placed on the client. Provider contacted for isolation considerations. Ebola Screen: Patient negative for fever greater than or equal to 101.5 degrees Fahrenheit, and additional compatible Ebola Virus Disease symptoms Patient denies exposure to infectious person. Patient denies travel to an Ebola-affected area in the 21 days before illness onset. No symptoms or risks identified at this time. Initial Sepsis Screen: Does the patient meet any 2 criteria? No. Patient's initial sepsis screen is negative. Does the patient have a suspected source of infection? No. Patient's initial sepsis screen is negative. Risk Assessment: Do you want to hurt yourself or someone else? Patient reports no desire to harm self or others. Onset of symptoms was August 22, 2020. 17:51 Method Of Arrival: Ambulatory ca1 17:51 Acuity: JC 3 ca1 Triage Assessment: 18:00 General: Appears in no apparent distress. uncomfortable, Behavior is calm, cooperative, bp appropriate for age. Pain: Complains of pain in pelvis. EENT: No deficits noted. Neuro: No deficits noted. Cardiovascular: No deficits noted. Respiratory: No deficits noted. GI: No signs and/or symptoms were reported involving the gastrointestinal system. : Reports pain in suprapubic area. Derm: No deficits noted. Musculoskeletal: No deficits noted. Historical: - Allergies: 17:57 Azithromycin; ca1 - Home Meds: 17:57 atorvastatin oral oral [Active]; Metoprolol Tartrate Oral [Active]; Aspirin Oral ca1 [Active]; - PMHx: 17:57 Myocardial infarction; ca1 - PSHx: 17:57 Heart stents; Hernia repair; ca1 - Immunization history:: Flu vaccine is not up to date. - Social history:: Smoking status: Patient denies any tobacco usage or history of. Screenin:01 Abuse screen: Denies threats or abuse. Denies injuries from another. Nutritional bp screening: No deficits noted. Tuberculosis screening: No symptoms or risk factors identified. Fall Risk None identified. Assessment: 18:01 General: SEE TRIAGE NOTE. bp 20:16 Reassessment: patient sent to radiology. mg2 20:56 Reassessment: Patient appears in no apparent distress at this time. Patient and/or mg2 family updated on plan of care and expected duration. Pain level reassessed. Patient is alert, oriented x 3, equal unlabored respirations, skin warm/dry/pink. 21:43 Reassessment: Patient and/or family updated on plan of care and expected duration. Pain ea level reassessed. Patient is alert, oriented x 3, equal unlabored respirations, skin warm/dry/pink. Discharge instruction given to patient verbalized the understanding of instruction. Pt left ED ambulatory tolerating well. Patient states feeling better. Vital Signs: 17:51 BP 142 / 86; Pulse 101; Resp 18 S; Temp 102.2(O); Pulse Ox 97% on R/A; Weight 99.79 kg ca1 (R); Height 5 ft. 8 in. (172.72 cm) (R); Pain 8/10; 20:54 BP 117 / 74; Pulse 85; Resp 18; Temp 98.8(O); Pulse Ox 96% on R/A; mg2 21:40 BP 127 / 70; Pulse 80; Resp 18; Temp 98.7; Pulse Ox 100% ; ea 17:51 Body Mass Index 33.45 (99.79 kg, 172.72 cm) ca1 ED Course: 17:31 Patient arrived in ED. as 17:55 Triage completed. ca1 17:57 Arm band placed on right wrist. ca1 17:58 Bob Chavarria PA is PHCP. cp 17:58 Bob Childress MD is Attending Physician. cp 17:59 Eduard Jacobson, ADELA is Primary Nurse. bp 18:01 Patient has correct armband on for positive identification. Bed in low position. Call bp light in reach. Side rails up X2. 19:00 Inserted saline lock: 20 gauge in right antecubital area, using aseptic technique. bp Blood collected. 20:16 CT Abd/Pelvis - IV Contrast Only In Process Unspecified. EDMS 21:44 No provider procedures requiring assistance completed. IV discontinued, intact, ea bleeding controlled, No redness/swelling at site. Pressure dressing applied. Administered Medications: 19:00 Drug: NS 0.9% 1000 ml Route: IV; Rate: 1000 ml; Site: right antecubital; bp 19:00 Drug: Tylenol 1000 mg Route: PO; bp 20:00 Follow up: Response: No adverse reaction mg2 19:00 Drug: morphine 4 mg Route: IVP; Site: right antecubital; bp 19:59 Follow up: Response: No adverse reaction mg2 19:00 Drug: Zofran (Ondansetron) 4 mg Route: IVP; Site: right antecubital; bp 19:59 Follow up: Response: No adverse reaction mg2 20:27 Drug: Rocephin - (cefTRIAXone) 1 grams Route: IVPB; Infused Over: 30 mins; Site: right ea antecubital; 21:47 Follow up: Response: No adverse reaction; IV Status: Completed infusion ea 21:23 Drug: TORadol - Ketorolac 15 mg Route: IVP; Site: right antecubital; ea 21:47 Follow up: Response: No adverse reaction ea 21:23 Drug: Pyridium 200 mg Route: PO; ea 21:47 Follow up: Response: No adverse reaction ea 21:24 Drug: LevaQUIN 750 mg Route: PO; ea 21:47 Follow up: Response: No adverse reaction ea Outcome: 21:24 Discharge ordered by . david 21:44 Discharged to home ambulatory, with family. ea 21:44 Condition: stable 21:44 Discharge instructions given to patient, Instructed on discharge instructions, follow up and referral plans. medication usage, Demonstrated understanding of instructions, follow-up care, medications, Prescriptions given X 3. 21:48 Patient left the ED. ea Signatures: Dispatcher [employer] EDMS Karon Godfrey Corey, PA PA cp Antunez, Elena, RN RN ea Peltier, Brian RN Adam Beavers RN RN mg2 Migdalia Pelayo RN RN ca1 Corrections: (The following items were deleted from the chart) 18:25 17:51 Chief complaint: Patient states: Groin pain since yesterday, more on the perineal ca1 area. Reports burning with urination, urinary urgency and frequency. Also reports L lower back. Denies N/V. Denies HX of Kidney stones. Reports L inguinal hernia, repaired. ca1 20:55 20:54 BP 117 / 74; Pulse 85bpm; Resp 18bpm; Pulse Ox 96% RA; mg2 mg2
[2020-08-22 21:54] VITALS: BP 127/70; TEMP 98.7; O2SAT 100
== END 2020-08-22 21:48 | disposition home or self-care (01) ==
LOC: ER 17:27
DX: N41.0 Acute prostatitis (principal); I25.2 Old myocardial infarction; Z95.818 Presence of other cardiac implants and grafts; Z79.82 Long term (current) use of aspirin; Z88.1 Allergy status to other antibiotic agents
CPT/HCPCS: 96365; 87040 ×2; 87088; 85025; 87086; 80048; 36415; 80076; 83605; 83690; 84145; 74177; 96375; 99284; Q9967; J0696; J7030; J2405; 81003; 81015

== ENCOUNTER 2021-02-08 02:33 | Emergency (ER) | payer OTHER ==
--- OUTSIDE RECORDS SUMMARY | 2021-02-08 02:36 | XMS REPORT | Continuity of Care Document ---
:1965 Author Organization [facility] t Address [address] [place] [address] Care Team Providers Name Role Phone Benoit, Benitez Primary Care Physician IRA Attending Clinician Unavailable Tito RAM Attending Clinician Unavailable LAB39 Attending Clinician Unavailable VINCE Attending Clinician Unavailable YASMINE Attending Clinician Unavailable ZENG Attending Clinician Unavailable LAB47 Attending Clinician Unavailable FELICIA GARCIA Attending Clinician Unavailable KEYANNA CRUZ Attending Clinician Unavailable CHRISTEL Admitting Clinician Unavailable Payers Payer Name Policy Type Policy Number Effective Date Expiration Date [place] [address] [id number] 2020 [id number] 00:00:00 Problems Condition Condition Condition Status Onset Resolution Last Treating Co mments Source Name Details Category Date Date Treatment Clinician Date NSTEMI NSTEMI Disease Active 2016-[address] [facility] - elevated elevated 00:00: Medica l myocardial myocardial 00 Ce nter infarction infarction ) ) Allergies, Adverse Reactions, Alerts This patient has no known allergies or adverse reactions. Social History Social Habit Start Date Stop Date Quantity Comments Source Sex Assigned At [facility] Tobacco use and 2017-05-01 2017-05-01 Never used [facility] - exposure 00:00:00 00:00:00 [facility] Alcohol intake 2017-05-01 2017-05-01 Current [facility] es - 00:00:00 00:00:00 non-drinker of Medical Ce nter alcohol (finding) Smoking Status Start Date Stop Date Source Never smoker [facility] Medications Ordered Filled Start Stop Current Ordering Indication Dosage Frequency Signature Comments Components Source Medication Medication Date Date Medication? Clinician (SIG) Name Name HYDROcodone 2016-06 Yes 1{tbl} Take [address] -acetaminop 1-24 tablet by Micha es - hen (NORCO 16:58: mouth Medica l 10-325) 04 every 6 Center 10-325 mg (six) per tablet hours as needed for Pain. cephalexin 2016-06 Yes 500mg [id number] Take [address] [facility] [address] (KEFLEX) 1-24 [id number] mg by Luke s - 500 MG [...] Date/Time Type Type Clinicians Facility Department ID 2021-04-13 2021-04-13 Outpatient MECHELLE ROTH [id number] [place] 15:30:00 15:30:00 KATINA [place] 2021-02-04 2021-02-04 Outpatient DAYRON RAM [id number] [place] 00:00:00 00:00:00 Seybol d 2021-02-04 2021-02-04 Outpatient DAYRON RAM [id number] [place] 00:00:00 00:00:00 Seybol d 2021-02-03 2021-02-03 Outpatient LAB39 MECHELLE ROB [id number] [place] 11:00:00 11:00:00 Seybol d 2021-02-03 2021-02-03 Outpatient DAYRON RAM [id number] [place] 10:15:00 10:15:00 Seybol d 2021-02-01 2021-02-01 Outpatient MARTHA ROB 101 [id number] [place] 00:00:00 00:00:00 MD ALEJANDRO Seybol d 2021-01-28 2021-01-28 Outpatient TEODORO UNDERWOOD [id number] [place] 00:00:00 00:00:00 Seybol d 2021-01-13 2021-01-13 Outpatient MECHELLE ZENG [id number] [place] 00:00:00 00:00:00 DHAVAL restrepo 2021-01-07 2021-01-07 Outpatient MARTHA ROB 101 [id number] [place] 00:00:00 00:00:00 MD ALEJANDRO Seybol d 2021-01-06 2021-01-06 Outpatient MECHELLE ZENG [id number] [place] 00:00:00 00:00:00 DHAVAL restrepo 2020-12-30 2020-12-30 Outpatient LAB47 MECHELLE ROB [id number] [place] 08:15:00 08:15:00 Seybol d 2020-12-29 2020-12-29 Outpatient MECHELLE ZENG [id number] [place] 16:00:00 16:00:00 DHAVAL restrepo 2020-05-22 2020-05-22 Outpatient MHTW MHTW [id number] MHTW 05:56:00 05:56:00 Results Test Description Test Time Test Comments Results Result [facility] e Comments CT, EXTREMITY, 2017-05-02 FINAL REPORT PATIENT LOWER, WITH 01:51:00 ID: [id number] CT, CONTRAST, RIGHT EXTREMITY, LOWER, WITH CONTRAST, [...] MDReport Verified Date/Time: 05/02/2017 01:51:05 Reading Location: [address] Transitional Reading Room HROMBIN TIME/INR 2017-05-02 00:39:00 [...] for patients with mechanical heart valves.BASIC METABOLIC [id number] 00:36:00 Test Item Value Reference Range Interpretation [...] 0-0 (BEAKER) (test code = 413) TROPONIN [id number] 05:18:00 Test Item Value Reference Range Interpretation [...] 100-129 Borderline 130-159 High 160-189 Very High [id number] 05:07:00 Test Item Value Reference Range Interpretation Comments MAGNESIUM (BEAKER) (test code = 1.7 mg/dL 1.5-3.0 627) BASIC METABOLIC [id number] 05:07:00 Test Item Value Reference Range Interpretation [...] NOT APPLICABLE FOR DIALYSIS PATIEN TS. HEMOGLOBIN [id number] 04:52:00 Test Item Value Reference Range Interpretation Comments HEMOGLOBIN A1C (BEAKER) (test code = 5.1 % 4.3-6.1 368) CBC W/PLT COUNT & AUTO [id number] 04:38:00 Test Item Value Reference Range Interpretation [...] L 0.00-0.20 (test code = 417) TROPONIN [id number] 13:30:00 Test Item Value Reference Range Interpretation [...] Borderline 130-159 High 160-189 Very High [id number] [id number] 06:52:00 Test Item Value Reference Range Interpretation [...] AbnormalCT, CHEST WITH IV CONTRAST- PE TEST [id number] 04:49:00Reason for exam:- >EXTREMITY PAINshoulderWhat is the [...] the rightlung probably reflects atelectasis. Signed: Marc Small Verified Date/Time: 04/26/2017 04:49:00 Reading Location: [address] Reading Room VENOUS DOPPLER ARM, [id number] 04:12:00Reason for exam:->EXTREMITY PAINshoulderFINAL REPORT HISTORY: Pain [...] No left upper extremity DVT. Signed: Marc Small Verified Date/Time: 04/26/2017 04:12:13 Reading Location: [address] Reading Room B-TYPE NATRIURETIC FACTOR (BNP)2017-04-26 02:46:00 Test Item Value Reference Range Interpretation Comments B-TYPE NATRIURETIC PEPTIDE (BEAKER) 10 pg/mL 0-100 (test code = 700) URINALYSIS WITH MICROSCOPIC IF [id number] 02:40:00 Test Item Value Reference Range Interpretation [...] 463) SOURCE(BEAKER) (test code = 2795) TROPONIN [id number] 02:17:00 Test Item Value Reference Range Interpretation [...] CK-MB Reference Range:<5 Normal5-10 Borderline>10 AbnormalCOMPREHENSIVE METABOLIC [id number] 02:07:00 Test Item Value Reference Range Interpretation [...] S NOT APPLICABLE FOR DIALYSIS PATIEN TS. [id number] 02:02:00 Test Item Value Reference Range Interpretation Comments D-DIMER QUANTITATIVE (BEAKER) 0.68 MG/L FEU <0.50 H (test code = 671) REGARDING D-DIMER RESULTS: The 98% NPV (Negative Predictive Value) for DVT/PE exclusion is 0.50 mg/LFEU as suggested by the interlibrary loan services librarian and as approved by the FDA.RAD, CHEST, 1 VIEW, NON [id number] 01:56:00Reason for exam:- >EXTREMITY PAINshoulderFINAL REPORT EXAMINATION: [...] MDReport Verified Date/Time: 04/26/2017 01:56:22 Reading Location: [address] Reading Room CBC W/PLT COUNT & AUTO [id number] 01:50:00 Test Item Value Reference Range Interpretation [...]
[2021-02-08] MEDS ORDERED: ONDANSETRON 4 MG (ODT) TAB ONE (03:20)
[2021-02-08 04:02] LABS: SARS-COV-2 RT PCR POSITIVE (NEGATIVE)
[2021-02-08] MEDS ORDERED: ACETAMINOPHEN 500 MG TAB ONE (04:11)
[2021-02-08] MEDS ORDERED: METHYLPREDNISOLONE 40 MG INJ ONE (05:39)
[2021-02-08] MEDS ORDERED: PROMETHAZINE INJ 25 MG/ML AMP ONE (06:52)
[2021-02-08] MEDS ORDERED: ALBUTEROL INHALER 60 PUFF/8 GM IH ONE (06:55)
[2021-02-08 07:02] LABS: Absolute Lymphocytes (CBC) 0.6 K/uL (0.7-4.9); Basophils % 0.3 % (0-1.3); MPV 8.5 fL (7.6-11.3); RBC Red Blood Cell Count 5.21 M/uL (4.33-5.43)
[2021-02-08 07:08] LABS: Protime INR 1.13
[2021-02-08 07:19] LABS: ALT/SGPT 25 U/L (12-78); AST/SGOT 20 U/L (15-37); Albumin 3.7 g/dL (3.4-5.0); Alkaline Phosphatase 78 U/L (45-117); BUN Blood Urea Nitrogen 20 mg/dL (7-18); Bicarbonate 25 mmol/L (21-32); Bilirubin Direct 0.1 mg/dL (0-0.2); Bilirubin Total 0.4 mg/dL (0.2-1.0); Glucose Level 105 mg/dL (74-106); Magnesium 2.2 mg/dL (1.8-2.4); NT PRO-BNP 34 pg/mL (<125); Potassium 4.3 mmol/L (3.5-5.1); Protein, Total 6.7 g/dL (6.4-8.2); Sodium Level 136 mmol/L (136-145); Troponin (Emerg Dept Use Only) < 0.02 ng/mL (0.0-0.045)
--- NOTE | 2021-02-08 07:32 | EDPHYS ---
Physician Documentation [facility] Name: Andrew Prasad Age: 55 yrs Sex: Male : 1965 Arrival Date: 02/08/2021 Time: 02:36 Bed 11 Private MD: ED Physician Serg Goldstein HPI: 02/08 03:00 This 55 yrs old Male presents to ER via Ambulatory with complaints of Cough, mh7 Headache, Nausea. 03:28 The patient or guardian reports cough, that is intermittent, described as mild, with no mh7 sputum, flu symptoms, myalgias, Runny nose, congestion, fever, nausea, headache. Onset: The symptoms/episode began/occurred 2 day(s) ago. Severity of symptoms: At their worst the symptoms were moderate, yesterday, in the emergency department the symptoms are unchanged. Modifying factors: The symptoms are alleviated by nothing, the symptoms are aggravated by nothing. Associated signs and symptoms: Pertinent negatives: chest pain, diarrhea, ear ache, sore throat, vomiting. Historical: - Allergies: 02:48 Azithromycin; kg - Home Meds: 02:48 Metoprolol Tartrate Oral [Active]; atorvastatin Oral [Active]; Aspirin Oral [Active]; kg spironolactone Oral [Active]; - PMHx: 02:48 Myocardial infarction; kg - PSHx: 02:48 Appendectomy; Cardiac stent; Hernia; Right shoulder sx; Mitesh Knee Sx; Bicep sx; kg - Immunization history:: Adult Immunizations not up to date, Client reports having NOT received the Covid vaccine. - Social history:: Smoking status: Patient denies any tobacco usage or history of. Patient uses alcohol, occasionally. ROS: 03:28 Eyes: Negative for injury, pain, redness, and discharge, Neck: Negative for injury, mh7 pain, and swelling, Cardiovascular: Negative for chest pain, palpitations, and edema. 03:28 Back: Negative for injury and pain, : Negative for injury, bleeding, discharge, and swelling, MS/Extremity: Negative for injury and deformity, Skin: Negative for injury, rash, and discoloration, Neuro: Negative for headache, weakness, numbness, tingling, and seizure, Psych: Negative for depression, anxiety, suicide ideation, homicidal ideation, and hallucinations, Allergy/Immunology: Negative for hives, rash, and allergies, Endocrine: Negative for neck swelling, polydipsia, polyuria, polyphagia, and marked weight changes, Hematologic/Lymphatic: Negative for swollen nodes, abnormal bleeding, and unusual bruising. 03:28 Abdomen/GI: Negative for abdominal pain, diarrhea, constipation, abdominal cramps, abdominal distension, anorexia, dysphagia, hematemesis, black/tarry stool, rectal pain, rectal bleeding, bowel incontinence, flatulence. Exam: 03:28 Constitutional: This is a well developed, well nourished patient who is awake, alert, mh7 and in no acute distress. Head/Face: Normocephalic, atraumatic. Eyes: Pupils equal round and reactive to light, extra-ocular motions intact. Lids and lashes normal. Conjunctiva and sclera are non-icteric and not injected. Cornea within normal limits. Periorbital areas with no swelling, redness, or edema. Neck: Trachea midline, no thyromegaly or masses palpated, and no cervical lymphadenopathy. Supple, full range of motion without nuchal rigidity, or vertebral point tenderness. No Meningismus. Chest/axilla: Normal chest wall appearance and motion. Nontender with no deformity. No lesions are appreciated. Cardiovascular: Regular rate and rhythm with a normal S1 and S2. No gallops, murmurs, or rubs. Normal PMI, no JVD. No pulse deficits. 03:28 Abdomen/GI: Soft, non-tender, with normal bowel sounds. No distension or tympany. No guarding or rebound. No evidence of tenderness throughout. Back: No spinal tenderness. No costovertebral tenderness. Full range of motion. Skin: Warm, dry with normal turgor. Normal color with no rashes, no lesions, and no evidence of cellulitis. MS/ Extremity: Pulses equal, no cyanosis. Neurovascular intact. Full, normal range of motion. Neuro: Awake and alert, GCS 15, oriented to person, place, time, and situation. Cranial nerves II-XII grossly intact. Motor strength 5/5 in all extremities. Sensory grossly intact. Cerebellar exam normal. Normal gait. Psych: Awake, alert, with orientation to person, place and time. Behavior, mood, and affect are within normal limits. 03:28 Respiratory: the patient does not display signs of respiratory distress, Respirations: normal, Breath sounds: rhonchi, that are mild, are scattered, Respiratory rate: 20 Vital Signs: 02:45 BP 130 / 91; Pulse 96; Resp 20; Temp 99.7(O); Pulse Ox 94% on R/A; Weight 101.6 kg (R); kg Height 5 ft. 9 in. (175.26 cm); Pain 6/10; 03:50 BP 120 / 65; Pulse 84; Resp 22; Temp 100.7(O); Pulse Ox 92% on R/A; cc4 06:40 BP 103 / 68; Pulse 77; Resp 20; Temp 98.1(O); Pulse Ox 94% on R/A; cc4 07:56 BP 103 / 66; Pulse 60; Resp 19; Pulse Ox 92% on R/A; ll1 02:45 Body Mass Index 33.08 (101.60 kg, 175.26 cm) kg MDM: 07:29 Differential Diagnosis: Obstructed Airway Bronchitis Influenza Upper Respiratory mh7 Infection Sinusitis Pharyngitis Viral Syndrome Pneumonia. Data reviewed: vital signs, nurses notes, old medical records, lab test result(s), cardiac enzymes, CBC, electrolytes, Flu: negative Covid positive, EKG, radiologic studies, plain films. Data interpreted: Pulse oximetry: on room air is 94 %. Interpretation: acceptable. Counseling: I had a detailed discussion with the patient and/or guardian regarding: the historical points, exam findings, and any diagnostic results supporting the discharge/admit diagnosis, lab results, radiology results, the need for outpatient follow up, to return to the emergency department if symptoms worsen or persist or if there are any questions or concerns that arise at home. Response to treatment: the patient's symptoms have resolved after treatment, the patient's blood pressure is in an acceptable range, mental status has returned to baseline, the patient no longer shows bradycardia, the patient is not short of breath, the patient is not tachycardic, the patient's pain is gone, the patient's temperature has normalized, patient is well hydrated. 07:32 Patient medically screened. [facility] 02/08 04:03 Order name: COVID-19/FLU A+B; Complete Time: 04:12 EDMS 02/08 04:53 Order name: Basic Metabolic Panel [facility] 02/08 04:53 Order name: CBC with Diff [facility] 02/08 04:53 Order name: LFT's [facility] 02/08 04:53 Order name: Magnesium; Complete Time: 07:22 [facility] 02/08 04:53 Order name: NT PRO-BNP; Complete Time: 07:22 [facility] 02/08 04:53 Order name: PT-INR [facility] 02/08 04:53 Order name: Troponin (emerg Dept Use Only); Complete Time: 07:22 [facility] 02/08 04:53 Order name: Basic Metabolic Panel; Complete Time: 07:22 EDMS 02/08 04:53 Order name: CBC with Automated Diff; Complete Time: 07:06 EDMS 02/08 04:53 Order name: Liver (Hepatic) Function; Complete Time: 07:22 EDMS 02/08 04:54 Order name: Procalcitonin [facility] 02/08 03:32 Order name: Chest Single View XRAY [facility] 02/08 04:53 Order name: EKG; Complete Time: 04:54 [facility] 02/08 04:53 Order name: Cardiac monitoring; Complete Time: 06:53 [facility] 02/08 04:53 Order name: EKG - Nurse/Tech; Complete Time: 06:53 [facility] 02/08 04:53 Order name: IV Saline Lock; Complete Time: 06:53 [facility] 02/08 04:53 Order name: Labs collected and sent; Complete Time: 06:53 [facility] 02/08 04:53 Order name: O2 Per Protocol; Complete Time: 06:53 [facility] 02/08 04:53 Order name: O2 Sat Monitoring; Complete Time: 06:53 [facility] 02/08 04:54 Order name: Lactate; Complete Time: 07:22 [facility] 02/08 04:56 Order name: CRP la1 Administered Medications: 03:02 Drug: Ondansetron 4 mg Route: PO; kg 07:58 Follow up: Response: No adverse reaction ll1 03:55 Drug: Tylenol 1000 mg {Note: Oral temp 100.7; c/o headache..} Route: PO; cc4 07:58 Follow up: Response: No adverse reaction ll1 06:26 Drug: SOLU-Medrol (methylPrednisoLONE) 80 mg Route: IVP; Site: left antecubital; lp1 07:58 Follow up: Response: No adverse reaction ll1 06:38 Drug: Albuterol HFA Inhaler 2 puffs Route: Inhalation; cc4 07:57 Follow up: Response: No adverse reaction ll1 06:40 Drug: Phenergan (promethazine) 12.5 mg Route: IVP; Site: left antecubital; cc4 07:57 Follow up: Response: No adverse reaction; Nausea is decreased ll1 Disposition Summary: 02/08/21 07:32 Discharge Ordered Location: Home [facility] Problem: an ongoing problem [facility] Symptoms: have improved [facility] Condition: Stable 7 Diagnosis - COVID 7 Followup: 7 - With: Private Physician - When: 1 - 2 days - Reason: Worsening of condition, Recheck today's complaints, Continuance of care, Re-evaluation by your physician Followup: 7 - With: Jean Paul Wright MD - When: 1 - 2 days - Reason: Worsening of condition, Recheck today's complaints Discharge Instructions: - Discharge Summary Sheet [facility] - COVID-19 [facility] - COVID-19 Frequently Asked Questions [facility] - COVID-19: Quarantine vs. Isolation - [place] [id number] Forms: - Medication Reconciliation Form 7 - Thank You Letter 7 - Antibiotic Education 7 - Prescription Opioid Use [facility] - Work release form 1 Prescriptions: - albuterol sulfate 90 mcg/actuation Inhalation HFA aerosol inhaler - inhale 2 puff by INHALATION route every 4-6 hours As needed; 1 Inhaler; [facility] Refills: 0, Product Selection Permitted - ondansetron 4 mg Oral tablet,disintegrating - place 1 tablet by TRANSLINGUAL route every 8 hours As needed; 10 tablet; [facility] Refills: 0, Product Selection Permitted - Prednisone 20 mg Oral Tablet - take 2 tablets by ORAL route once daily for 5 days; 10 tablet; Refills: 0, [facility] Product Selection Permitted - promethazine 25 mg Oral Tablet - take 1 tablet by ORAL route every 6 hours As needed; 10 tablet; Refills: 0, [facility] Product Selection Permitted Signatures: Dispatcher [employer] Rosalinda Reza RN RN lp1 Serg Goldstein MD MD 7 Julee Goldberg RN RN kg Cooper, Christie cc4 Sagrario Grossman RN ll1 Corrections: (The following items were deleted from the chart) 03:08 02:52 CORONAVIRUS+MR.LAB.BRZ ordered. EDMS EDMS 03:08 02:54 Influenza Screen (A \T\ B)+BA.JANELL.PARRISH ordered. EDMS EDMS
--- NOTE | 2021-02-08 07:32 | ER ---
Nurse's Notes [facility] Name: Andrew Prasad Age: 55 yrs Sex: Male : 1965 Arrival Date: 02/08/2021 Time: 02:36 Bed 11 Private MD: Diagnosis: COVID Presentation: 02/08 02:45 Chief complaint: Patient states: Headache, nausea, fever, chills, cough x 2 days. kg Coronavirus screen: Vaccine status: Patient reports being unvaccinated. Client denies travel out of the [place] in the last 14 days. chills, cough unrelated to allergies, fever, headache, nausea, Client presents with at least one sign or symptom that may indicate coronavirus-19. Standard/surgical mask placed on the client. Provider contacted for isolation considerations. Ebola Screen: Patient negative for fever greater than or equal to 101.5 degrees Fahrenheit, and additional compatible Ebola Virus Disease symptoms Patient denies exposure to infectious person. Patient denies travel to an Ebola-affected area in the 21 days before illness onset. Initial Sepsis Screen: Does the patient meet any 2 criteria? No. Patient's initial sepsis screen is negative. Does the patient have a suspected source of infection? No. Patient's initial sepsis screen is negative. Risk Assessment: Do you want to hurt yourself or someone else? Patient reports no desire to harm self or others. Onset of symptoms was February 06, 2021. 02:45 Method Of Arrival: Ambulatory kg 02:45 Acuity: JC 4 kg Triage Assessment: 03:50 General: Appears Behavior is calm, cooperative, uncomfortable. Reports chills for fever cc4 for Rec'd to exam rm # 11 via ambulation accompanied by ; reports having cough (productive clear secretions) with nausea/fever/chills/headache since Monday temp 100.7 orally; O2 sat 91-92% on RA; Dr. Goldstein notified with order rec'd to walk pt \T\ monitor O2 sat; tylenol 1000mg given po. 03:50 Pain: Pain: Complains of pain in head; c/o headache since Monday with little relief cc4 from aleve Pain began 2-3 days ago. Also complains of nausea, chills; cough. Neuro: No deficits noted. 04:20 Respiratory: Denies shortness of breath O2 sat 90% while resting upright in chair; cc4 portable O2 sat probe applied to right index finger \T\ ambulated in hallway with O2 sat increasing to 93-95% during ambulation; con't to deny SOB; Dr. Goldstein notified with no additional order rec'd. 04:51 Headache History: The patient has had previous headaches and this one is similar to cc4 previous episodes. Historical: - Allergies: 02:48 Azithromycin; kg - Home Meds: 02:48 Metoprolol Tartrate Oral [Active]; atorvastatin Oral [Active]; Aspirin Oral [Active]; kg spironolactone Oral [Active]; - PMHx: 02:48 Myocardial infarction; kg - PSHx: 02:48 Appendectomy; Cardiac stent; Hernia; Right shoulder sx; Mitesh Knee Sx; Bicep sx; kg - Immunization history:: Adult Immunizations not up to date, Client reports having NOT received the Covid vaccine. - Social history:: Smoking status: Patient denies any tobacco usage or history of. Patient uses alcohol, occasionally. Screenin:47 Abuse screen: Denies threats or abuse. Denies injuries from another. Nutritional kg screening: No deficits noted. Tuberculosis screening: No symptoms or risk factors identified. Fall Risk None identified. Assessment: 02:47 Pain: Complains of pain in Head Pain currently is 6 out of 10 on a pain scale. at worst kg was 6 out of 10 on a pain scale. level that patient reports is acceptable is 3 out of 10 on a pain scale. Quality of pain is described as pressure. 06:26 Reassessment: Patient states symptoms have not improved. GI: Reports nausea. cc4 07:00 Reassessment: No changes from previously documented assessment. Patient and/or family ll1 updated on plan of care and expected duration. Pain level reassessed. Patient is alert, oriented x 3, equal unlabored respirations, skin warm/dry/pink. 07:57 Reassessment: Patient appears in no apparent distress at this time. No changes from ll1 previously documented assessment. Patient and/or family updated on plan of care and expected duration. Pain level reassessed. Patient is alert, oriented x 3, equal unlabored respirations, skin warm/dry/pink. Vital Signs: 02:45 BP 130 / 91; Pulse 96; Resp 20; Temp 99.7(O); Pulse Ox 94% on R/A; Weight 101.6 kg (R); kg Height 5 ft. 9 in. (175.26 cm); Pain 6/10; 03:50 BP 120 / 65; Pulse 84; Resp 22; Temp 100.7(O); Pulse Ox 92% on R/A; cc4 06:40 BP 103 / 68; Pulse 77; Resp 20; Temp 98.1(O); Pulse Ox 94% on R/A; cc4 07:56 BP 103 / 66; Pulse 60; Resp 19; Pulse Ox 92% on R/A; ll1 02:45 Body Mass Index 33.08 (101.60 kg, 175.26 cm) kg ED Course: 02:36 Patient arrived in ED. bp1 02:47 Triage completed. kg 02:47 Patient has correct armband on for positive identification. kg 03:02 Serg Goldstein MD is Attending Physician. mh7 03:44 Conchis Rouse is Primary Nurse. cc4 03:50 Labs ordered per protocol. X-ray ordered. cc4 03:57 Chest Single View XRAY In Process Unspecified. EDMS 04:19 No provider procedures requiring assistance completed. COVID swab sent to lab. X-ray(s) cc4 taken. 06:26 Inserted saline lock: 20 gauge in left antecubital area, using aseptic technique. lp1 07:31 Jean Paul Wright MD is Referral Physician. mh7 07:48 IV discontinued, intact, bleeding controlled, No redness/swelling at site. Pressure ll1 dressing applied. 07:59 Arm band placed on. ll1 Administered Medications: 03:02 Drug: Ondansetron 4 mg Route: PO; kg 07:58 Follow up: Response: No adverse reaction ll1 03:55 Drug: Tylenol 1000 mg {Note: Oral temp 100.7; c/o headache..} Route: PO; cc4 07:58 Follow up: Response: No adverse reaction ll1 06:26 Drug: SOLU-Medrol (methylPrednisoLONE) 80 mg Route: IVP; Site: left antecubital; lp1 07:58 Follow up: Response: No adverse reaction ll1 06:38 Drug: Albuterol HFA Inhaler 2 puffs Route: Inhalation; cc4 07:57 Follow up: Response: No adverse reaction ll1 06:40 Drug: Phenergan (promethazine) 12.5 mg Route: IVP; Site: left antecubital; cc4 07:57 Follow up: Response: No adverse reaction; Nausea is decreased ll1 Outcome: 04:58 Condition: stable cc4 07:32 Discharge ordered by . [facility] 07:58 Discharged to home ambulatory. ll1 07:58 Condition: stable 07:58 Discharge instructions given to patient, family, Instructed on discharge instructions, follow up and referral plans. medication usage, Demonstrated understanding of instructions, follow-up care, medications, Prescriptions given X 4. 07:59 Patient left the ED. ll1 Signatures: Dispatcher [employer] EDMS Rosalinda Morley RN RN 1 Sagrario Grossman RN RN 1 Frieda Mena Maurice, MD MD [facility] Julee Goldberg RN RN kg Conchis Rouse [facility] Corrections: (The following items were deleted from the chart) 03:08 02:54 CORONAVIRUS+MR.LAB.BRZ drawn and sent. EDMA 04:43 04:13 General: Appears Reports chills for fever for Rec'd to exam rm # 11 via cc4 ambulation accompanied by ; reports having cough (productive clear secretions) with nausea/fever/chills/headache since Monday temp 100.7 orally; O2 sat 91-92% on RA; Dr. Goldsetin notified with order rec'd to walk pt \T\ monitor O2 sat; tylenol 1000mg given po. cc4 04:57 04:51 Pain: Complains of pain in face Pain began 2-3 days ago. [facility] cc4 05:01 04:58 Labs ordered per protocol. X-ray ordered. 4 4
[2021-02-08 08:07] VITALS: TEMP 98.1
[2021-02-08 08:08] VITALS: BP 103/66; O2SAT 92
--- NOTE | 2021-02-08 09:29 | RAD REPORT ---
EXAM DESCRIPTION: Ang Single View02/08/2021 3:57 am CLINICAL HISTORY: cough COMPARISON: none FINDINGS: Battery overlies the right chest with wires extending into the right neck. Cylinder metall ic density overlies the lower right lateral chest. The lungs appear clear of acute infiltrate. The heart is normal size IMPRESSION: No acute abnormalities displayed
--- NOTE | 2021-02-09 10:58 | EKG ---
Test Date: 2021-02-08 Test Time: 06:16:06 Brush Maker: YEMI MEASUREMENT RESULTS: Intervals: Rate: 68 LA: 154 QRSD: 90 QT: 408 QTc: 433 [place]: P: -3 LA: 154 QRS: 51 T: 11 INTERPRETIVE STATEMENTS: Normal sinus rhythm Cannot rule out Anterior infarct, age undetermined Abnormal ECG No previous ECG available for comparison Electronically Signed On 02-09-21 10:54:19 CDT by Sergio Wade
== END 2021-02-08 07:59 | disposition home or self-care (01) ==
LOC: ER 02:33
DX: U07.1 COVID-19 (principal); I25.2 Old myocardial infarction; Z95.818 Presence of other cardiac implants and grafts; Z88.1 Allergy status to other antibiotic agents
CPT/HCPCS: 93005; 85025; 80048; 36415; 83735; 85610; 80076; 83605; 84484; 84145; 83880; 0240U; 86140; 71045; 96375; 96374; 99284; J2550; J2920

== ENCOUNTER 2021-08-08 18:14 | Emergency (ER) | payer BC, OTHER ==
--- OUTSIDE RECORDS SUMMARY | 2021-08-08 18:18 | XMS REPORT | Continuity of Care Document ---
:1965 Author Organization [facility] t Address [address] [place] [address] Care Team Providers Name Role Phone VIOLETA HENLEY Primary Care Physician Unavailable MIKIE Attending Clinician Unavailable YASMINE Attending Clinician Unavailable IRA Attending Clinician Unavailable SERA Attending Clinician Unavailable KEYANNA Attending Clinician Unavailable Rufino LOCK Attending Clinician Tito RAM Attending Clinician Unavailable LAB39 Attending Clinician Unavailable VINCE Attending Clinician Unavailable KARRI Attending Clinician Unavailable LAB47 Attending Clinician Unavailable JACIEL TOBAR Attending Clinician Unavailable FELICIA GARCIA Attending Clinician Unavailable KEYANNA CRUZ Attending Clinician Unavailable MIKIE Admitting Clinician Unavailable CHRISTEL Admitting Clinician Unavailable Payers Payer Name Policy Type Policy Number Effective Date Expiration Date S ryan BCBS PPO POS EPO [id number] 2021 [place]ICE 00:00:00 [place] [id number] 2020 [place] [id number] 00:00:00 Problems Condition Condition Condition Status Onset Resolution Last Treating Co mments Source Name Details Category Date Date Treatment Clinician Date Obesity Obesity Disease Active Mechelle (BMI (BMI 7-27 Seybold 30.0-34.9) 30.0-34.9) 00:00: 00 Coronary Coronary Disease Active 2021-0 Kelse y artery artery 12-29 Seybold disease disease 00:00: involving involving 00 lime lime coronary coronary artery of artery of lime lime heart heart History of History of Disease Active K jair heart heart 12-29 Seybold artery artery 00:00: stent stent 00 Vitamin D Vitamin D Disease Active Lex sey deficiency deficiency 12-29 Se ybold 00:00: 00 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-29 Seybold osteoarthr osteoarthr 00:00: itis of itis of 00 knee knee Spondyloli Spondyloli Disease Active K 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 at 12-29 Se ybold L5-S1 L5-S1 00:00: level level 00 Localized Localized Disease Active Lex sey edema edema 12-29 Seybold 00:00: 00 MOUSTAPHA MOUSTAPHA Disease Active Mechelle (obstructi (obstructi 12-29 Se ybold ve sleep ve sleep 00:00: apnea) apnea) 00 NSTEMI NSTEMI Disease Active 2016-[address] [facility] ([facility] ([facility] - elevated elevated 00:00: Medica l myocardial myocardial 00 Ce nter infarction infarction ) ) Allergies, Adverse Reactions, Alerts Allergy Allergy Status Severity Reaction(s) Onset Inactive Treating Comm ents Source Name Type Date Date Clinician NO KNOWN [facility] Social [facility] Social Habit Start Date Stop Date Quantity Comments Source History SDOH Mechelle xie Alcohol Std Drinks History SDOH Mechelle xie Alcohol Binge History SDOH Mechelle [place] Alcohol Comment Exposure to Yes Mechelle torres SARS-CoV-2 (event) Alcohol intake 2021-02-19 2021-02-19 Lifetime Mechelle Kenny bold 00:00:00 00:00:00 non-drinker (finding) Tobacco use and 2020-12-29 2020-12-29 Smokeless tobacco Ke bianca [place] exposure 00:00:00 00:00:00 non-user History SDOH 2020-12-29 2020-12-29 1 Mechelle xie Alcohol Frequency 00:00:00 00:00:00 Sex [birth year] Mechelle Se ybold 00:00:00 00:00:00 Smoking Status Start Date Stop Date Source Never smoked tobacco Mechelle Seyb old Medications Ordered Filled Start Stop Current Ordering Indication Dosage Frequency Signature Comments Components Source Medication Medication Date Date Medication? Clinician (SIG) Name Name ASPIRIN 81 Yes [id number] 1{tbl} Take 1 Mechelle OR 9-17 tablet by Seybold 09:51: mouth 42 daily Ivermectin Yes Mechelle 3 MG oral 9-16 Seybold Tablet 00:00: 00 Benzonatate Yes TAKE ONE Ke lsey 100 MG oral 02-15 (1) Seybold Capsule 00:00: CAPSULE(S) 00 BY MOUTH THREE TIMES A DAY NEEDED FOR COUGH. predniSONE Yes TAKE FOUR Ke lsey (DELTASONE) 12 (4) Seybold 10 MG oral 00:00: TABLET(S) tablet 00 BY MOUTH DAILY X3 DAYS, THREE (3) TABLETS DAILY X3 DAYS, TWO (2) TABLETS DAILY X3 DAYS, ONE (1) TABLET DAILY X3 DAY Nebulizers Yes See Admin Ke lsey (Vios LC 02-14 Instructio Seybo ld Plus) does 00:00: ns not apply 00 Misc Doxycycline Yes 100mg Take 100 K elsey Hyclate 100 9-12 mg by Seybold MG oral 00:00: mouth 2 Capsule 00 times daily Budesonide, Yes INHALE ONE Mechelle Inhalation, 02-14 (1) VIAL Seyb old 1 MG/2ML 00:00: VIA inhalation 00 NEBULIZER Suspension TWICE DAILY FOR 1 WEEK. Albuterol Yes 2{puff} 2 puffs Ke lsey HFA 108 (90 9-06 every 4 to Se ybold Base) 00:00: 6 hours as MCG/ACT IN 00 needed AERS Ondansetron Yes DISSOLVE 1 Mechelle (ZOFRAN) 4 9-06 TABLET IN Seyb old MG oral 00:00: MOUTH TABLET 00 EVERY 8 DISPERSIBLE HOURS NEEDED Furosemide Yes [id number] 20mg Take 1 Mechelle 20 MG oral 7-27 tablet (20 Sey bold Tablet 00:00: mg total) 00 by mouth daily Vitamin D, Yes [id number] 1U Take 1 K elsey Ergocalcife 7-23 unit by Kamo ld rol, 1.25 00:00: mouth 1 MG (91331 00 (one) time UT) oral WEEKLY Capsule Metoprolol Yes [id number] 50mg Take 50 mg Mechelle Succinate 7-02 by mouth Seybol d 50 MG oral 00:00: daily TABLET SR 00 24 HR Atorvastati Yes [id number] 10mg Take 10 mg Mechelle n Calcium 6-16 by mouth Seybol d 20 MG oral 00:00: daily Tablet 00 HYDROcodone 2016-06 Yes 1{tbl} Take [address] -acetaminop 1-24 tablet by Micha es - hen (NORCO 16:58: mouth Medica l 10-325) 04 every 6 Center 10-325 mg (six) per tablet hours as needed for Pain. cephalexin 2016-06 Yes 500mg Q.[id number] Take [address] [facility] (KEFLEX) 1-24 [id number] mg by Luke s - 500 MG 16:58: 3D mouth 3 Medical capsule 04 (three) Center times daily. cyclobenzap 2016-06 Yes 10mg Take [address] [facility] rine 1-24 by mouth 3 [facility] - (FLEXERIL) 16:58: (three) Medi destiny 10 MG 04 times Center tablet daily as needed for Muscle spasms. HYDROcodone 2016-06 Yes 1{tbl} Take [address] -acetaminop 1-24 tablet by Micha es - hen (NORCO 16:58: mouth Medica l 10-325) 04 every 6 Center 10-325 mg (six) per tablet hours as needed for Pain. cephalexin 2016-06 Yes 500mg Q.[id number] Take [address] (KEFLEX) 1-24 [id number] mg by Luke s - 500 MG [...] by mouth 2 Center (two) times daily. ticagrelor 2017-1 Yes 90mg Q.5D Take 1 [facility] (BRILINTA) 1-24 tablet (90 Micha es - 90 mg Tab 00:00: mg total) Med ical tablet 00 by mouth 2 Center (two) times daily. ondansetron 2015-0 Yes 4mg Take [address] [facility] (ZOFRAN-ODT 1-12 tablet (4 Micha es - ) 4 MG 00:00: mg total) Medica l disintegrat 00 by mouth Cent er ing tablet every 8 (eight) hours as needed for Nausea for up to 10 doses. meclizine 2015-0 Yes 25mg Take [address] [facility] (ANTIVERT) 1-12 tablet (25 Micha es - 25 mg 00:00: mg total) Medical tablet 00 by mouth 3 Center (three) times daily as needed for Dizziness for up to 15 doses. ondansetron 2015-0 Yes 4mg Take [address] [facility] (ZOFRAN-ODT 1-12 tablet (4 Micha es - ) 4 MG 00:00: mg total) Medica l disintegrat 00 by mouth Cent er ing tablet every 8 (eight) hours as needed for Nausea for up to 10 doses. meclizine 2015-0 Yes 25mg Take [address] [facility] (ANTIVERT) 1-12 tablet (25 Micha es - 25 mg 00:00: mg total) Medical tablet 00 by mouth 3 Center (three) times daily as needed for Dizziness for up to 15 doses. Vital Signs Vital Name Observation Time Observation Value Comments Source WEIGHT 2021-08-06 07:24:00 107.049 kg HEIGHT 2021-08-06 07:24:00 175.3 cm HEIGHT 2021-08-03 14:48:00 175.3 cm WEIGHT 2021-08-03 14:48:00 107.049 kg Procedures This patient has no known procedures. Encounters Start End Encounter Admission Attending Care Care Encounter Source Date/Time Date/Time Type Type Clinicians Facility Department ID 2021-08-06 2021-08-06 Outpatient YESENIA WILLIS Surgery [id number] [facility] 06:59:00 10:36:00 AGUSTIN 2021-08-04 2021-08-04 Outpatient YESENIA WILLIS [facility] [id number] SL 10:10:00 23:59:00 AGUSTIN 2021 2021 Outpatient TEODORO UNDERWOOD MECHELLE ROB [id number] Mechelle 09:00:00 09:00:00 Seybol d 2021-04-13 2021-04-13 Outpatient IRAMECHELLE [id number] Mechelle 15:30:00 15:30:00 KATINA Seybo ld 2021-04-06 2021-04-06 Outpatient MIRZAITEHRA MECHELLE ROB [id number] Mechelle 14:30:00 14:30:00 NETEODORA 2021-03-25 2021-03-25 Outpatient MECHELLE BRICEÑO [id number] Mechelle 14:30:00 14:30:00 EDWARD Seybol d 2021-03-01 2021-03-01 Outpatient MECHELLE BRICEÑO [id number] Mechelle 14:30:00 14:30:00 EDWARD Seybol d 2021-02-19 2021-02-19 Telemedici FRITZ Joy [id number] Mechelle 09:56:55 10:21:23 ne Simon POWERS [id number] Se old [id number] 2021-02-04 2021-02-04 Outpatient DAYRON RAM [id number] Mechelle 00:00:00 00:00:00 Seybol d 2021-02-04 2021-02-04 Outpatient DAYRON RAM [id number] Mechelle 00:00:00 00:00:00 Seybol d 2021-02-03 2021-02-03 Outpatient LAB39 MECHELLE ROB [id number] Mechelle 11:00:00 11:00:00 Seybol d 2021-02-03 2021-02-03 Outpatient DAYRON RAM [id number] Mechelle 10:15:00 10:15:00 Seybol d 2021-02-01 2021-02-01 Outpatient MARTHA ROB [id number] Mechelle 00:00:00 00:00:00 MD Wale ALLEN 2021-01-28 2021-01-28 Outpatient YASMINETEODORO Villegas MECHELLE [id number] Mechelle 00:00:00 00:00:00 Kamol brian 2021-01-13 2021-01-13 Outpatient MECHELLE ZENG MECHELLE [id number] Mechelle 00:00:00 00:00:00 DHAVAL Segretta old 2021-01-07 2021-01-07 Outpatient JOSE LUISONIrena ROB MECHELLE [id number] Emchelle 00:00:00 00:00:00 MD Wale ALLEN 2021-01-06 2021-01-06 Outpatient LEX ZENGSILVERIO ROB [id number] Mechelle 00:00:00 00:00:00 DHAVAL Segretta old 2020-12-30 2020-12-30 Outpatient LAB47 MECHELLE MECHELLE [id number] Mechelle 08:15:00 08:15:00 Kamol brian 2020-12-29 2020-12-29 Outpatient ZENG, MECHELLE OLIVEIRASEY [id number] Mechelle 16:00:00 16:00:00 DHAVAL Washingtongretta restrepo 2020-05-22 2020-05-22 Outpatient CILREKHAO, MHTW MHTW [id number] MHTW 05:56:00 14:23:00 SHIVA Results Test Description Test Time Test Comments Results Result Comments Source SARS-COV2/RT-PCR ([facility]) 2021-08-04 15:50:56 Test Item Value Reference Range Interpretation Comme nts SARS-COV2/RT-PCR (test code = Negative Negative The SARS-CoV-2 target nucleic [id number]) acids are not d etected in this specimen. Nega tive results do not preclude SA RS-CoV-2 infection and s hould not be used as the sole bas is for patient management deci sions. Negative results must be combined with clinical observ ations, patient history, and ep idemiological information. A false negative result may occu r if a specimen is improperly c ollected, transported or handled. This SARS CoV-2 test is a rapid, real-time RT-PC R test intended for the qualita tive detection of nucleic acid fr om SARS-CoV-2 in a nasopharyngea l swab specimen collected from individuals suspected of CO VID-19 by their healthcare prov ider. This test has been authorized by FDA under an EUA for use by authorized laboratories. This test is only authorized for the duration of the declaration that circumstances exist justifying the authorization of emergency use of in vitro diagnostic tests for detection and/or diagnosis of COVID-19 under Section 564(b)(1) of the Federal Food, Drug and Cosmetic Act, 21 U.S.C. 360bbb- 3(b)(1), unless the authorization is terminated or revoked sooner. Fact Sheet for Healthcare Providers: https://www.Green [employer] Grow/Documents/Xpert%20Xpress%20SARS%20CoV-2/Fact%20Sheets/302-3802%20SARS-COV -2%20HEALTHCARE%20PROVIDERS%20FACT%20SHEET.pdf Fact Sheet for Healthcare Patients: https://www.PinPay/Documents/Xpert %20Xpress%20SARS%20CoV-2/Fact%20Sheets/3023801%04QLAP-DYU-8%20PATIENT%20FACT%20 SHEET.pdfCT, EXTREMITY, LOWER, WITH CONTRAST, [id number] 01:51:00FINAL REPORT CT, EXTREMITY, LOWER, WITH CONTRAST, RIGHT INDICATION: post cathhematoma and ecchymosis COMPARISON: None TECHNIQUE: Post- contrast CT imaging of the right hip. Coronal and sagittal reformatted images are also provided. DOSE REDUCTION: Dose modulation, iterative reconstruction, and/or weight-based adjustment of the mA/kV was utilized to reduce the radiation dose to as low as reasonably achievable. FINDINGS:Soft tissue structures:Subcutaneous stranding in the area of recent percutaneous intervention. No organized fluid is evident. There is no extravasation of vascul ar contrast. Muscular compartments are within normal limits. [...] active bleeding or abscess formation. Signed: JR Ronald, Gordon Brooks Verified Date/Time: 05/02/2017 01:51:05 Reading Location: [address] Transitional Reading Room PROTHROMBIN [id number] 00:39:00 Test Item Value Reference Range Interpretation Comments PROTIME (BEAKER) (test code = 10.7 seconds 9.8-12.0 759) INR (BEAKER) (test code = 370) 1.0 <=5.9 RECOMMENDED COUMADIN/WARFARIN INR THERAPY RANGESSTANDARD DOSE: 2.0 - 3.0 Includes: PROPHYLAXIS forvenous thrombosis, systemic embolization; TREATMENT for venous thrombosis and/or pulmonary embolus.HIGH RISK: Target INR is 2.5-3.5 for patients with mechanical heart valves.BASIC METABOLIC [id number] 00:36:00 Test Item Value Reference Range Interpretation [...] 0-0 (BEAKER) (test code = 413) TROPONIN [id number] 05:18:00 Test Item Value Reference Range Interpretation Comments TROPONIN I (BEAKER) (test code = 3.57 ng/mL 0.00-0.15 HH 397) Troponin I (TnI) [...] 100-129 Borderline 130-159 High 160-189 Very High >=[id number] 05:07:00 Test Item Value Reference Range Interpretation Comments MAGNESIUM (BEAKER) (test code = 1.7 mg/dL 1.5-3.0 627) BASIC METABOLIC [id number] 05:07:00 Test Item Value Reference Range Interpretation [...] NOT APPLICABLE FOR DIALYSIS PATIEN TS. HEMOGLOBIN [id number] 04:52:00 Test Item Value Reference Range Interpretation Comments HEMOGLOBIN A1C (BEAKER) (test code = 5.1 % 4.3-6.1 368) CBC W/PLT COUNT & AUTO [id number] 04:38:00 Test Item Value Reference Range Interpretation [...] L 0.00-0.20 (test code = 417) TROPONIN [id number] 13:30:00 Test Item Value Reference Range Interpretation [...] Borderline 130-159 High 160-189 Very High >=190TROPONIN [id number] 06:52:00 Test Item Value Reference Range Interpretation [...] AbnormalCT, CHEST WITH IV CONTRAST- PE TEST [id number] 04:49:00Reason for exam:- >EXTREMITY PAINshoulderWhat is the [...] rightlung probably reflects atelectasis. Signed: Marc Small MDReport Verified Date/Time: 04/26/2017 04:49:00 Reading Location: [address] Reading Room VENOUS DOPPLER ARM, [id number] 04:12:00Reason for exam:->EXTREMITY PAINshoulderFINAL REPORT HISTORY: Pain [...] left upper extremity DVT. Signed: Marc Small MDReport Verified Date/Time: 04/26/2017 04:12:13 Reading Location: [address] Reading Room B-TYPE NATRIURETIC FACTOR (BNP)2017-04-26 02:46:00 Test Item Value Reference Range Interpretation Comments B-TYPE NATRIURETIC PEPTIDE (BEAKER) 10 pg/mL 0-100 (test code = 700) URINALYSIS WITH MICROSCOPIC IF [id number] 02:40:00 Test Item Value Reference Range Interpretation [...] 463) SOURCE(BEAKER) (test code = 2795) TROPONIN [id number] 02:17:00 Test Item Value Reference Range Interpretation [...] CK-MB Reference Range:<5 Normal5-10 Borderline>10 AbnormalCOMPREHENSIVE METABOLIC [id number] 02:07:00 Test Item Value Reference Range Interpretation [...] S NOT APPLICABLE FOR DIALYSIS PATIEN TS. [id number] 02:02:00 Test Item Value Reference Range Interpretation Comments D-DIMER QUANTITATIVE (BEAKER) 0.68 MG/L FEU <0.50 H (test code = 671) REGARDING D-DIMER RESULTS: The 98% NPV (Negative Predictive Value) for DVT/PE exclusion is 0.50 mg/LFEU as suggested by the business development agent and as approved by the FDA.RAD, CHEST, 1 VIEW, NON [id number] 01:56:00Reason for exam:- >EXTREMITY PAINshoulderFINAL REPORT EXAMINATION: [...] of an acute osseous abnormality.. Signed: Sulaiman Sierraeport Verified Date/Time: 04/26/2017 01:56:22 Reading Location: [address] Reading Room CBC W/PLT COUNT & AUTO [id number] 01:50:00 Test Item Value Reference Range Interpretation [...]
[2021-08-08 19:56] LABS: Absolute Lymphocytes (CBC) 2.4 K/uL (0.7-4.9); Hematocrit 43.7 % (39.6-49.0); Lymphocytes % 30.4 % (15.3-44.8); MPV 8.3 fL (7.6-11.3); RBC Red Blood Cell Count 5.47 M/uL (4.33-5.43)
[2021-08-08 20:08] LABS: Protime INR 1.03
[2021-08-08 20:19] LABS: Potassium 3.9 mmol/L (3.5-5.1)
--- NOTE | 2021-08-08 20:54 | RAD REPORT ---
EXAM DESCRIPTION: RAD - Chest Single View - 08/08/2021 8:08 pm CLINICAL HISTORY: GI bleeding COMPARISON: Portable 02/08/2021 TECHNIQUE: AP portable chest image was obtained 08/08/2021 8:08 pm . FINDINGS: Lungs are clear. Interstitial pattern matches comparison. Battery pack from [employer] r overlies the right-side of the chest. Heart and vasculature are normal. No measurable pleural effus ion and no pneumothorax. No acute bony abnormality seen. No acute aortic findings suspected. IMPRESSION: No acute cardiopulmonary process. No significant change from comparison study.
--- NOTE | 2021-08-08 21:25 | RAD REPORT ---
EXAM DESCRIPTION: CT - Abdomen Pelvis W Contrast - 08/08/2021 8:57 pm CLINICAL HISTORY: Recent colonoscopy with polyp removal;Abd pain;GI bleed COMPARISON: <Comparisons>CT 08/22/2020 TECHNIQUE: Biphasic, helical CT imaging of the abdomen and pelvis was performed following 100 ml non -ionic IV contrast. No oral contrast administered. All CT scans are performed using dose optimization technique as appropriate and may include automated exposure control or mA/KV adjustment according to patient size. FINDINGS: No suspicious findings in the lung bases. The liver, spleen, and pancreas show no suspicious findings. Gallbladder and biliary tree are also wi thout suspicious finding. Symmetric renal function is seen with no hydronephrosis or suspicious renal mass. No pyelonephritis o r acute parenchymal process. No bladder wall thickening or abnormal enhancement. Bladder stones seen. No adrenal abnormalities. Prominent prostate gland along superior margin projecting into the bladder base. This is similar to the examination 1 year earlier. Correlation can be made outpatient follow-u p PSA study. No dilated bowel loops or bowel wall thickening. Appendectomy clips are present. No free air, free fl uid or inflammatory stranding. No hernia, mass or bulky lymphadenopathy. No acute bone findings seen. L5 spondylolysis present with grade 1 spondylolisthesis. Bilateral yuriy inal encroachment seen at L5-S1 due to the subluxation. IMPRESSION: Contrast enhanced CT abdomen and pelvis showing no acute or emergent finding. Above detailed findings are not significantly different from examination 1 year earlier.
[2021-08-08] MEDS ORDERED: NA CHLORIDE 0.9% 500 ML ONE (21:35)
[2021-08-08] MEDS ORDERED: NA CHLORIDE 0.9% 250 ML ONE (21:35)
[2021-08-08] MEDS ORDERED: PANTOPRAZOLE 40 MG INJ ONE (21:35)
--- NOTE | 2021-08-08 21:49 | ER ---
Nurse's Notes [facility] Name: Andrew Prasad Age: 56 yrs Sex: Male : 1965 Arrival Date: 08/08/2021 Time: 18:17 Bed 19 Private MD: Diagnosis: Lower GI bleed, status post colonoscopy with polyp removal Presentation: 08/08 18:22 Chief complaint: Patient states: colonoscopy on Monday08/06/21 and a 30 mm polyp was vg1 removed at [facility] [place] by Dr. Cardenas. Today pt states had diarrhea and the 'toilet was full of blood' and ABD pain that started about an hour ago. Coronavirus screen: Vaccine status: Patient reports being unvaccinated. Client denies travel out of the [place] in the last 14 days. Ebola Screen: Patient negative for fever greater than or equal to 101.5 degrees Fahrenheit, and additional compatible Ebola Virus Disease symptoms. Initial Sepsis Screen: Does the patient meet any 2 criteria? No. Patient's initial sepsis screen is negative. Does the patient have a suspected source of infection? No. Patient's initial sepsis screen is negative. Risk Assessment: Do you want to hurt yourself or someone else? Patient reports no desire to harm self or others. Onset of symptoms was August 08, 2021. 18:22 Method Of Arrival: Ambulatory vg1 18:22 Acuity: JC 3 vg1 Triage Assessment: 18:27 General: Appears in no apparent distress. uncomfortable, Behavior is calm, cooperative. vg1 Pain: Complains of pain in abdomen. GI: Abdomen is flat, non-distended, Reports diarrhea, rectal bleeding, bloody stool. Historical: - Allergies: 18:27 Azithromycin; vg1 - Home Meds: 18:27 Aspirin Oral [Active]; atorvastatin Oral [Active]; Spironolactone Oral [Active]; vg1 Metoprolol Tartrate Oral [Active]; Vitamin D Oral [Active]; - PMHx: 18:27 Myocardial infarction; vg1 - PSHx: 18:27 Appendectomy; Bicep sx; Mitesh knee sx; cardiac stent; hernia; Right shoulder sx; vg1 - Immunization history:: Client reports having NOT received the Covid vaccine. - Social history:: Smoking status: Patient denies any tobacco usage or history of. Screenin:17 Abuse screen: Denies threats or abuse. Nutritional screening: No deficits noted. sv1 Tuberculosis screening: No symptoms or risk factors identified. Fall Risk None identified. Assessment: 22:17 General: Report called to taylor roa. sv1 Vital Signs: 18:22 BP 140 / 100; Pulse 80; Resp 18; Temp 99.0(TE); Pulse Ox 97% ; Weight 107.05 kg; Height vg1 5 ft. 9 in. (175.26 cm); Pain 3/10; 20:45 BP 130 / 66; Pulse 81; Resp 18; mw2 22:17 BP 139 / 77 LA Supine (auto/reg); Pulse 74 MON; Resp 18 S; Temp 98.6(O); Pulse Ox 96% sv1 on R/A; 18:22 Body Mass Index 34.85 (107.05 kg, 175.26 cm) vg1 ED Course: 18:17 Patient arrived in ED. as 18:27 Triage completed. vg1 18:27 Arm band placed on. vg1 19:06 Serg Goldstein MD is Attending Physician. mh7 20:08 Kolton Muñoz, ADELA is Primary Nurse. sv1 20:08 Chest Single View XRAY In Process Unspecified. EDMS 20:42 initiated a transfer with Sheila Lisa from [facility] [place]. mw2 20:47 Type And Screen Sent. sv1 20:48 COVID-19 SARS RT PCR (Document "Date of Onset" if Symptomatic) Sent. sv1 20:48 SARS-COV-2 RT PCR Sent. sv1 20:57 CT Abd/Pelvis - IV Contrast Only In Process Unspecified. EDMS 21:[address] Goldstein with the GI specialist from [facility]. mw2 21:28 Hepatic Function Sent. sv1 21:[address] Goldstein with the Hospitalist from [facility]. mw2 21:52 administrative approval given by Sheila Lisa/ patient has been accepted to [facility]/ Dr. Lorenzo accepted the patient in transfer/ report to be called to [phone]. 22:17 Patient has correct armband on for positive identification. Placed in gown. Bed in low sv1 position. Call light in reach. Side rails up X2. Adult w/ patient. 22:17 Served as a district sales leader during rectal exam. Inserted saline lock: 20 gauge in right sv1 antecubital area, using aseptic technique. 08/09 02:30 gave patient's flipflops to Security to be put in the vault. mw2 Administered Medications: 08/08 21:52 Drug: ProTONIX (pantoprazole) 80 mg Route: IVP; Site: right antecubital; sv1 22:20 Follow up: Response: No adverse reaction sv1 21:52 Drug: ProTONIX (pantoprazole) 8 mg/hr Route: IV; Rate: 25 ml/hr; Site: right sv1 antecubital; 22:20 Follow up: Response: No adverse reaction sv1 21:52 Drug: NS 0.9% 500 ml Route: IV; Rate: bolus; Site: right antecubital; sv1 22:20 Follow up: Response: No adverse reaction sv1 Outcome: 21:48 ER care complete, transfer ordered by MD. willis 22:17 Transferred by ground EMS to [facility]. sv1 23:36 Patient left the ED. sv1 Signatures: Dispatcher [employer] Karon Yoo MyKena 2 Roxann Coelho RN RN 1 Serg Goldstein MD MD 7 Kolton Muñoz RN RN sv1
--- NOTE | 2021-08-08 21:49 | EDPHYS ---
Physician Documentation [facility] Name: Andrew Prasad Age: 56 yrs Sex: Male : 1965 Arrival Date: 08/08/2021 Time: 18:17 Bed 19 Private MD: ED Physician Serg Goldstein HPI: 08/08 19:40 This 56 yrs old Male presents to ER via Ambulatory with complaints of Abdominal mh7 Cramping, Rectal Bleeding - polyp removal 08/06. 19:40 The patient presents to the emergency department with rectal bleeding, a moderate mh7 amount, in toilet bowl, with multiple such episodes. Onset: The symptoms/episode began/occurred today, at 17:30. Abdominal pain: described as crampy, located in the right upper quadrant, left upper quadrant, right lower quadrant and left lower quadrant, that does not radiate. Modifying factors: The symptoms are alleviated by nothing, the symptoms are aggravated by nothing. Associated signs and symptoms: Pertinent negatives: anorexia, chest pain, constipation, diarrhea, dizziness at rest, dizziness when standing, fever, shortness of breath, syncope, near-syncope, vomiting. Severity of symptoms: At their worst the symptoms were moderate today, in the emergency department the symptoms are unchanged. Historical: - Allergies: 18:27 Azithromycin; vg1 - Home Meds: 18:27 Aspirin Oral [Active]; atorvastatin Oral [Active]; Spironolactone Oral [Active]; vg1 Metoprolol Tartrate Oral [Active]; Vitamin D Oral [Active]; - PMHx: 18:27 Myocardial infarction; vg1 - PSHx: 18:27 Appendectomy; Bicep sx; Mitesh knee sx; cardiac stent; hernia; Right shoulder sx; vg1 - Immunization history:: Client reports having NOT received the Covid vaccine. - Social history:: Smoking status: Patient denies any tobacco usage or history of. ROS: 19:40 Constitutional: Negative for fever, chills, and weight loss, Eyes: Negative for injury, mh7 pain, redness, and discharge, ENT: Negative for injury, pain, and discharge, Neck: Negative for injury, pain, and swelling, Cardiovascular: Negative for chest pain, palpitations, and edema, Respiratory: Negative for shortness of breath, cough, wheezing, and pleuritic chest pain, Back: Negative for injury and pain, : Negative for injury, bleeding, discharge, and swelling, MS/Extremity: Negative for injury and deformity, Skin: Negative for injury, rash, and discoloration, Neuro: Negative for headache, weakness, numbness, tingling, and seizure, Psych: Negative for depression, anxiety, suicide ideation, homicidal ideation, and hallucinations, Allergy/Immunology: Negative for hives, rash, and allergies, Endocrine: Negative for neck swelling, polydipsia, polyuria, polyphagia, and marked weight changes. Exam: 19:40 Constitutional: This is a well developed, well nourished patient who is awake, alert, mh7 and in no acute distress. Head/Face: Normocephalic, atraumatic. Eyes: Pupils equal round and reactive to light, extra-ocular motions intact. Lids and lashes normal. Conjunctiva and sclera are non-icteric and not injected. Cornea within normal limits. Periorbital areas with no swelling, redness, or edema. Neck: Trachea midline, no thyromegaly or masses palpated, and no cervical lymphadenopathy. Supple, full range of motion without nuchal rigidity, or vertebral point tenderness. No Meningismus. Chest/axilla: Normal chest wall appearance and motion. Nontender with no deformity. No lesions are appreciated. Cardiovascular: Regular rate and rhythm with a normal S1 and S2. No gallops, murmurs, or rubs. Normal PMI, no JVD. No pulse deficits. Respiratory: Lungs have equal breath sounds bilaterally, clear to auscultation and percussion. No rales, rhonchi or wheezes noted. No increased work of breathing, no retractions or nasal flaring. Back: No spinal tenderness. No costovertebral tenderness. Full range of motion. Skin: Warm, dry with normal turgor. Normal color with no rashes, no lesions, and no evidence of cellulitis. MS/ Extremity: Pulses equal, no cyanosis. Neurovascular intact. Full, normal range of motion. Neuro: Awake and alert, GCS 15, oriented to person, place, time, and situation. Cranial nerves II-XII grossly intact. Motor strength 5/5 in all extremities. Sensory grossly intact. Cerebellar exam normal. Normal gait. Psych: Awake, alert, with orientation to person, place and time. Behavior, mood, and affect are within normal limits. 19:40 Abdomen/GI: Inspection: obese Bowel sounds: normal, in all quadrants, Palpation: [facility] moderate abdominal tenderness, in all quadrants, mass, is not appreciated, rebound tenderness, is not appreciated, voluntary guarding, is not appreciated, involuntary guarding, is not appreciated, no appreciated organomegaly, Rectal exam: rectal tone normal, Stool: grossly bloody, guaiac positive, hemorrhoid(s), are not appreciated, mass, is not appreciated, swelling, is not appreciated, tenderness, is not appreciated, fecal impaction, is not appreciated, the exam is chaperoned by the nurse, Indicators: McBurney's point is not tender, Jesus's sign is negative, Rovsing's sign is negative, Obturator sign is negative, Psoas sign is negative, Liver: no appreciated palpable abnormalities, Hernia: not appreciated. Vital Signs: 18:22 BP 140 / 100; Pulse 80; Resp 18; Temp 99.0(TE); Pulse Ox 97% ; Weight 107.05 kg; Height vg1 5 ft. 9 in. (175.26 cm); Pain 3/10; 20:45 BP 130 / 66; Pulse 81; Resp 18; mw2 22:17 BP 139 / 77 LA Supine (auto/reg); Pulse 74 MON; Resp 18 S; Temp 98.6(O); Pulse Ox 96% sv1 on R/A; 18:22 Body Mass Index 34.85 (107.05 kg, 175.26 cm) vg1 MDM: 21:44 Differential diagnosis: gastritis, diverticulitis, hemorrhoids, hemorrhagic shock, 7 varices, Lower GI bleeding, upper GI bleeding. Data reviewed: vital signs, nurses notes, old medical records, lab test result(s), CBC, electrolytes, radiologic studies, CT scan, plain films. Data interpreted: Pulse oximetry: on room air is 97 %. Interpretation: normal. Counseling: I had a detailed discussion with the patient and/or guardian regarding: the historical points, exam findings, and any diagnostic results supporting the discharge/admit diagnosis, lab results, radiology results, the need to transfer to another facility, Continuity of care with specialist. Response to treatment: the patient's symptoms have mildly improved after treatment. 21:48 Patient medically screened. [facility] 08/08 19:23 Order name: Basic Metabolic Panel [facility] 08/08 19:23 Order name: CBC with Diff; Complete Time: 20:12 [facility] 08/08 19:23 Order name: Hepatic Function [facility] 08/08 19:23 Order name: Lipase [facility] 08/08 19:23 Order name: Protime (+inr); Complete Time: 20:12 [facility] 08/08 19:23 Order name: Ptt, Activated; Complete Time: 20:12 [facility] 08/08 19:23 Order name: Chest Single View XRAY; Complete Time: 21:16 [facility] 08/08 19:23 Order name: Type And Screen; Complete Time: 21:39 [facility] 08/08 20:10 Order name: COVID-19 SARS RT PCR (Document "Date of Onset" if Symptomatic) [facility] 08/08 20:11 Order name: SARS-COV-2 RT PCR; Complete Time: 21:29 [facility] 08/08 20:24 Order name: CT Abd/Pelvis - IV Contrast Only; Complete Time: 21:29 [facility] 08/08 22:03 Order name: Urine Dipstick-Ancillary [facility] 08/08 19:23 Order name: IV Saline Lock; Complete Time: 21:28 [facility] 08/08 19:23 Order name: Labs collected and sent; Complete Time: 21:28 [facility] 08/08 19:23 Order name: Urine Dipstick-Ancillary (obtain specimen) [facility] 08/08 19:23 Order name: EKG; Complete Time: 19:24 [facility] 08/08 19:23 Order name: EKG - Nurse/Tech; Complete Time: 21:53 [facility] Administered Medications: 21:52 Drug: ProTONIX (pantoprazole) 80 mg Route: IVP; Site: right antecubital; sv1 22:20 Follow up: Response: No adverse reaction sv1 21:52 Drug: ProTONIX (pantoprazole) 8 mg/hr Route: IV; Rate: 25 ml/hr; Site: right sv1 antecubital; 22:20 Follow up: Response: No adverse reaction sv1 21:52 Drug: NS 0.9% 500 ml Route: IV; Rate: bolus; Site: right antecubital; sv1 22:20 Follow up: Response: No adverse reaction sv1 Disposition Summary: 08/08/21 21:48 Transfer Ordered Transfer Location: Other Acute Care Facility [facility] Reason: Higher level of care mh7 Condition: Stable mh7 Problem: new mh7 Symptoms: have improved mh7 Accepting Physician: Dr. Lorenzo [facility](08/08/21 23:36) sv1 Diagnosis - Lower GI bleed, status post colonoscopy with polyp removal [facility] Forms: - Medication Reconciliation Form [facility] - SBAR form [facility] Signatures: Dispatcher [employer] EDRoxann Leyva RN RN 1 Serg Goldstein MD MD 7 Kolton Muñoz RN RN sv1 Corrections: (The following items were deleted from the chart) 22:29 21:48 [place] [id number] 22:29 22:29 [place]. [place] [id number] 23:36 22:29 Dr. Lorenzo [address]
[2021-08-08 22:02] LABS: Albumin 3.6 g/dL (3.4-5.0); Bilirubin Direct 0.2 mg/dL (0-0.2); Bilirubin Total 0.5 mg/dL (0.2-1.0); Protein, Total 6.5 g/dL (6.4-8.2)
[2021-08-08 22:04] LABS: Urine Blood Negative (Negative); Urine Glucose Negative (Negative); Urine Protein Negative (Negative); Urine Specific Gravity >=1.030 (1.005-1.030); Urine pH 6.5 (5.0-7.0)
[2021-08-09 00:16] VITALS: BP 139/77; TEMP 98.6; O2SAT 96
== END 2021-08-08 23:36 ==
LOC: ER 18:14
DX: K92.2 Gastrointestinal hemorrhage, unspecified (principal); Z98.890 Other specified postprocedural states; Z79.82 Long term (current) use of aspirin; Z95.818 Presence of other cardiac implants and grafts
CPT/HCPCS: 93005; 85025; 80048; 36415; 86900; 86850; 85610; 86901; 80076; 85730; 81003; 83690; 74177; 71045; 96374; 99285; U0003; Q9967; C9113; J7050; J7040

== ENCOUNTER 2023-02-15 10:22 | Emergency (ER) | payer BC ==
--- OUTSIDE RECORDS SUMMARY | 2023-02-15 10:26 | XMS REPORT | Continuity of Care Document ---
:1965 Author Organization [facility] t Address [address] [facility] [address] [place] [address] Care Team Providers Name Role Phone BREANNA HENLEY Primary Care Physician Unavailable Eduard Haile MD Attending Clinician Franklin Joy Attending Clinician Unavailable LISA CASTRO Attending Clinician Unavailable LATASHA LERMA Attending Clinician Unavailable DIMAS PERSAUD Attending Clinician Unavailable AGUSTIN DELUNA Attending Clinician Unavailable TEODORO UNDERWOOD Attending Clinician Unavailable KATINA ROTH Attending Clinician Unavailable TEODORA ZAMORA Attending Clinician Unavailable EDWARD BRICEÑO Attending Clinician Unavailable Simon Joy DO Attending Clinician DAYRON RAM Attending Clinician Unavailable LAB39 Attending Clinician Unavailable MD VINCE Attending Clinician Unavailable DHAVAL ZENG Attending Clinician Unavailable LAB47 Attending Clinician Unavailable SHIVA TOBAR Attending Clinician Unavailable MILAGRO GARCIA Attending Clinician Unavailable IVY CRUZ Attending Clinician Unavailable LATASHA LERMA Admitting Clinician Unavailable MIKIE AGUSTIN Admitting Clinician Unavailable ALONSO KEARNEY Admitting Clinician Unavailable Payers Payer Name Policy Type Policy Number Effective Date Expiration Date S ource BCBS PPO POS EPO [id number] 2021 CHOICE 00:00:00 [place] [id number] 2020 [place] [id number] 00:00:00 Problems Condition Condition Condition Status Onset Resolution Last Treating Co mments Source Name Details Category Date Date Treatment Clinician Date Hematochez Hematochez Disease Active Overview [facility]: g of this Medical 00 note Center might be different from the original. 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 00:00: itis of itis of 00 knee knee 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 at 7-27 Se ybold L5-S1 L5-S1 00:00: level level 00 Localized Localized Disease Active Lex sey edema edema 12-29 Seybold 00:00: 00 MOUSTAPHA MOUSTAPHA Disease Active Mechelle (obstructi (obstructi 12-29 Se ybold ve sleep ve sleep 00:00: apnea) apnea) 00 NSTEMI NSTEMI Disease Recurre 2016-[address] [facility] (non-ST (non-ST nce 06[facility]26 [facility] elevated elevated 00:00: Medica l myocardial myocardial 00 Ce nter infarction infarction ) ) Allergies, Adverse Reactions, Alerts Allergy Allergy Status Severity Reaction(s) Onset Inactive Treating Comm ents Source Name Type Date Date Clinician Grass Propensi Active Itching Methodi Pollen ty to 5 st adverse 00:00: Hospita reaction 00 l s to drug AZITHROM Allergy Active Low Rash [facility]IN 3-07 [facility] Center Azithrom Propensi Active Rash [facility] y[facility] ty to 3-07 [facility] adverse 00:00: Medical reaction 00 Center s NO KNOWN [facility] Social History Social Habit Start Date Stop Date Quantity Comments Source Exposure to Yes Mechelle torres SARS-CoV-2 (event) Gender identity [facility] Sexual orientation [facility] History SDOH [facility] Alcohol Std Drinks [facility] History SDOH [facility] Alcohol Binge Medical Teodoro ter Alcohol intake 2022-01-24 2022-01-[address] [facility] 00:00:00 00:00:00 non-drinker of Medical nter alcohol (finding) History of Social 2021-11-02 2021-11-[address] function 00:00:00 00:00:00 Hospital Alcohol Comment 2021-08-06 2021-08-[address] [facility] k[facility] 00:00:00 00:00:00 [facility] History SDOH 2021-08-03 2021-08-[address] [facility] Alcohol Frequency 00:00:00 00:00:00 [facility] Tobacco use and 2017-04-26 2017-04-[address] [facility] exposure 00:00:00 00:00:00 tobacco non-user [facility] Sex Assigned At [address] [facility] 00:00:00 00:00:00 [facility] Smoking Status Start Date Stop Date Source Never smoked tobacco [facility] Medications Ordered Filled Start Stop Current Ordering Indication Dosage Frequency Signature Comments Components Source Medication Medication Date Date Medication? Clinician (SIG) Name Name levoFLOXaci 2022- No 750mg QD Take 1 Me thodi n 01-16 08-[address] (LEVAQUIN) 00:00: 04:59 (750 mg Hos jennie 750 MG 00 :00 total) by l tablet mouth daily for 5 days. Start day before procedure until gone aspirin 81 Yes 81mg QD Take [address] MG chewable 01-25 by mouth Luke s tablet 16:20: daily. Medical 01 Center tamsulosin 0 Yes .4mg QD Take 0.[address] (FLOMAX) 8-23 mg by [facility]ukes 0.4 mg Cap 16:20: mouth Medica l 24 hr 01 daily. Center capsule testosteron 0 Yes Q14D Inject Meth juan e cypionate 5-[address] (DEPOTESTOT 05:38: shoulder, H ospita ERONE 57 thigh, or l CYPIONATE) buttocks 200 mg/mL every 14 injection (fourteen) days. atorvastati 2021-0 Yes 40mg QD Take 40 mg Methodi n (LIPITOR) 5-[address] 40 mg 05:38: daily. Hospita tablet 57 l pantoprazol 0 Yes 20mg QD Take 20 mg Methodi e 5-[address] (PROTONIX) 05:38: daily. Hospi ta 20 MG EC 57 l tablet metoprolol 0 Yes 50mg QD Take 50 mg M ethodi succinate 5-[address] XL 05:38: daily. Hospita (TOPROL-XL) 57 l 50 mg 24 hr tablet aspirin 0 Yes 81mg QD Take 81 mg Meth juan (ECOTRIN) 5-[address] 81 MG 05:38: daily. Hospita enteric 57 l coated tablet montelukast 0 Yes 10mg QD Take 10 mg Methodi (SINGULAIR) 5-[address] 10 mg 05:38: nightly. Hospita tablet 57 l atorvastati 2021-0 Yes 10mg QD Take [address] n (LIPITOR) 3-08 by mouth Luke s 10 MG 15:03: daily. Medical tablet 24 Center metoprolol 0 Yes 25mg QD Take [address] succinate 3-08 by mouth [facility] (TOPROL-XL) 15:03: daily. Medi destiny 25 MG 24 hr 24 Center tablet ergocalcife 2021-0 Yes [id number] Q7D Take [facility] rol 3-08 50,000 [facility] (Vitamin 15:03: Units by Medic al D2) 1,250 24 mouth once Cent er mcg (50,000 a week. unit) capsule testosteron 0 Yes 260mg Inject [address] e enanthate 3-08 mg Lukes (DELATESTRY 15:03: intramuscu Medical L) 200 24 larly Center mg/mL every 7 injection days Last dose taken 08/05/2021. ASPIRIN 81 Yes [id number] 1{tbl} Take 1 Mechelle OR 9-17 tablet by Seybold 09:51: mouth 42 daily Ivermectin Yes Mechelle 3 MG oral 9-16 Seybold Tablet 00:00: 00 Benzonatate Yes TAKE ONE Ke lsey 100 MG oral 02-15 (1) Seybold Capsule 00:00: CAPSULE(S) 00 BY MOUTH THREE TIMES A DAY NEEDED FOR COUGH. predniSONE Yes TAKE FOUR Ke lsey (DELTASONE) -12 (4) Seybold 10 MG oral 00:00: TABLET(S) [...] EVERY 8 DISPERSIBLE HOURS NEEDED Furosemide Yes [id number] 20mg Take 1 Mechelle 20 MG oral 7-27 tablet (20 Sey bold Tablet 00:00: mg total) 00 by mouth daily Vitamin D, Yes [id number] 1U Take 1 K elsey Ergocalcife 7-23 unit by Seybo ld rol, 1.25 00:00: mouth 1 MG (62448 00 (one) time UT) oral WEEKLY Capsule Metoprolol Yes [id number] 50mg Take 50 mg Mechelle Succinate 7-02 by mouth Seybol d 50 MG oral 00:00: daily TABLET SR 00 24 HR Atorvastati Yes [id number] 10mg Take 10 mg Mechelle n Calcium 6-16 by mouth Seybol d 20 MG oral 00:00: daily Tablet 00 HYDROcodone 2016-06 Yes 1{tbl} Take [address] -acetaminop 1-24 tablet by Micha es hen (If You Can 16:58: mouth Medica l 10-325) 04 every 6 Center 10-325 mg (six) per tablet hours as needed for Pain. cephalexin 2016-06 Yes 500mg Q.[id number] Take [address] (KEFLEX) 1-24 [id number] mg by Luke s 500 MG 16:58: 3D mouth 3 Medical capsule 04 (three) Center times daily. cyclobenzap 2016-06 Yes 10mg Take [address] rine 1-24 by mouth 3 [facility]ukes (FLEXERIL) 16:58: (three) Medi destiny 10 MG 04 times Center tablet daily as needed for Muscle spasms. HYDROcodone 2016-06 Yes 1{tbl} Take [address] -acetaminop 1-24 tablet by Micha es hen (NORCO 16:58: mouth Medica l 10-325) 04 every 6 Center 10-325 mg (six) per tablet hours as needed for Pain. cephalexin 2016-06 Yes 500mg Q.[id number] Take [address] (KEFLEX) 1-24 [id number] mg by Luke s 500 MG 16:58: 3D mouth 3 Medical capsule 04 (three) Center times daily. cyclobenzap 2016-06 Yes 10mg Take [address] rine 1-24 by mouth 3 [facility]ukes (FLEXERIL) 16:58: (three) Medi destiny 10 MG 04 times Center tablet daily as needed for Muscle spasms. ticagrelor 2016-06 Yes 90mg Q.5D Take 1 [facility] (BRILINTA) 1-24 tablet (90 Micha es 90 mg Tab 00:00: mg total) Med ical tablet 00 by mouth 2 Center (two) times daily. ticagrelor 2016-06 Yes 90mg Q.5D Take 1 [facility] (BRILINTA) 1-24 tablet (90 Micha es 90 mg Tab 00:00: mg total) Med ical tablet 00 by mouth 2 Center (two) times daily. ondansetron Yes 4mg Take [address] (ZOFRAN-ODT 1-12 tablet (4 Micha es ) 4 MG 00:00: mg total) Medica l disintegrat 00 by mouth Cent er ing tablet every 8 (eight) hours as needed for Nausea for up to 10 doses. meclizine Yes 25mg Take [address] (ANTIVERT) 1-12 tablet (25 Micha es 25 mg 00:00: mg total) Medical tablet 00 by mouth 3 Center (three) times daily as needed for Dizziness for up to 15 doses. ondansetron Yes 4mg Take [address] (ZOFRAN-ODT 1-12 tablet (4 Micha es ) 4 MG 00:00: mg total) Medica l disintegrat 00 by mouth Cent er ing tablet every 8 (eight) hours as needed for Nausea for up to 10 doses. meclizine Yes 25mg Take [address] (ANTIVERT) 1-12 tablet (25 Micha es 25 mg 00:00: mg total) Medical tablet 00 by mouth 3 Center (three) times daily as needed for Dizziness for up to 15 doses. Vital Signs Vital Name Observation Time Observation Value Comments Source HEIGHT 2022-01-24 12:49:00 175.3 cm WEIGHT 2022-01-24 12:49:00 108.41 kg HEIGHT 2022-01-24 12:49:00 175.3 cm WEIGHT 2022-01-24 12:49:00 108.41 kg WEIGHT 2021-08-10 07:47:00 107.049 kg HEIGHT 2021-08-09 00:56:00 175.3 cm WEIGHT 2021-08-10 07:47:00 107.049 kg HEIGHT 2021-08-09 00:56:00 175.3 cm WEIGHT 2021-08-06 07:24:00 107.049 kg HEIGHT 2021-08-06 07:24:00 175.3 cm HEIGHT 2021-08-03 14:48:00 175.3 cm WEIGHT 2021-08-03 14:48:00 107.049 kg WEIGHT 2021-08-06 07:24:00 107.049 kg HEIGHT 2021-08-06 07:24:00 175.3 cm HEIGHT 2021-08-03 14:48:00 175.3 cm WEIGHT 2021-08-03 14:48:00 107.049 kg Procedures This patient has no known procedures. Plan of Care Planned Activity Planned Date Details Comments Source Future Scheduled 2031-08-11 [facility] [facility] malignant [facility] Test 00:00:00 neoplasm of colon Medical Ce nter (procedure) [code = 588149914] Future Scheduled 2031-08-11 Screening for malignant [facility] Test 00:00:00 neoplasm of colon Medical Ce nter (procedure) [code = 224157620] Future Scheduled 2023-12-31 Lipid panel (procedure) [facility] Test 00:00:00 [code = 49055830] Medical Ce nter Future Scheduled 2023-02-09 [facility] 12[facility]49:31 [facility] colon Hospital (procedure) [code = 111493114] Future Scheduled 2023-02-09 [facility] 12:49:31 neoplasm of colon Hospital (procedure) [code = 013615921] Future Scheduled 2023-02-09 [facility] 12:49:31 neoplasm of colon Hospital (procedure) [code = 846300496] Future Scheduled 2023-02-09 COVID-19 VACCINE (#1) [facility] 12:49:31 [code = COVID-19 VACCINE Hos pital (#1)] Future Scheduled 2023-02-09 Hepatitis C screening [facility] 12:49:31 (procedure) [code = Hospital 071207917] Future Scheduled 2023-02-09 [facility] malignant [facility] 12:49:31 neoplasm of colon Hospital (procedure) [code = 000042627] Future Scheduled 2023-02-09 Screening for malignant [facility] 12:49:31 neoplasm of colon Hospital (procedure) [code = 753884485] Future Scheduled 2023-02-09 SHINGLES VACCINES (1 of [facility] 12:49:31 2) [code = SHINGLES Hospital VACCINES (1 of 2)] Future Scheduled 2023-02-09 INFLUENZA VACCINE (#1) M ethodist Test 12:49:31 [code = INFLUENZA VACCINE Ho spital (#1)] Future Scheduled 2023-02-03 Influenza Vaccine (#1) [facility] 00:00:00 [code = Influenza Vaccine Vt dical Center (#1)] Future Scheduled 2023-01-[address] [facility] Test 00:00:00 Counseling and Screening [facility] (12+) [code = Tobacco Cessation Counseling and Screening (12+)] Future Scheduled 2022-06-[address] [facility] Test 00:00:00 (12+) [code = DEPRESSION Med ica Center SCREENING (12+)] Future Scheduled 2016 SHINGLES VACCINES ([address] [facility] Test 00:00:00 2) [code = SHINGLES [facility] VACCINES (1 of 2)] Future Scheduled 1985 DTAP/TDAP/TD VACCINES ([address] [facility] Test 00:00:00 - Tdap) [code = Medical Cent er DTAP/TDAP/TD VACCINES (1 - Tdap)] Future Scheduled 1984 HEPATITIS C [facility]CRE[facility]ING [facility] 00:00:00 [code = HEPATITIS C Medical Center SCREENING] Future Scheduled [address] [facility] Test 00:00:00 virus screening Medical Cent er (procedure) [code = 566354312] Future Scheduled 1966 COVID-19 VACCINE (#1) [facility] 00:00:00 [code = COVID-19 VACCINE Med [facility] Center (#1)] Future Scheduled 1966 CT Colonography (combo) [facility] Test 00:00:00 [code = CT Colonography [facility] (combo)] Future Scheduled 1966 Screening for malignant [facility] Test 00:00:00 neoplasm of colon Medical Ce nter (procedure) [code = 757617540] Future Scheduled 1966 Screening for malignant [facility] Test 00:00:00 neoplasm of colon Medical Ce nter (procedure) [code = 308385717] Future Scheduled 1965 Sigmoidoscopy [code = [facility] Test 00:00:00 Sigmoidoscopy] Medical Cente r Encounters Start End Encounter Admission Attending Care Care Encounter Source Date/Time Date/Time Type Type Clinicians Facility Department ID 2022-12-12 [facility] [id number] Common 12:49:00 [id number] [facility] 2022-12-02 Outpatient [facility] [id number] Common 09:10:01 [id number] [facility] 2022-09-15 Outpatient [facility] [id number] Common 13:26:01 [id number] [facility] 2023-01-30 2023-01-30 Telephone Miles, 1.2.840.1 [id number] Methodi 00:00:00 00:00:00 Eduard [place] [address] 3.430.2.7 Hospit a .3.658407 l .8 2023-01-23 2023-01-23 Documentat Rufino, 1.2.840.1 [id number] Methodi 00:00:00 00:00:00 ion [place] [address]356.1.[address] 3.430.2.7 Hospit a .3.713954 l .8 2023-01-16 2023-01-16 Transcribe Miles, 1.2.840.1 [id number] Methodi 00:00:00 00:00:00 Orders Eduard [place] [address]693.1.[address] 3.430.2.7 Hospit a .3.401445 l .8 2023-01-06 2023-01-06 Telephone Miles, 1.2.840.1 [id number] Methodi 00:00:00 00:00:00 Eduard [place] [address]1.[address] 3.430.2.7 Hospit a .3.962147 l .8 2022-11-16 2022-11-16 Telephone Miles, 1.2.840.1 [id number] Methodi 00:00:00 00:00:00 Eduard [place] [address].1.[address] 3.430.2.7 Hospit a .3.069739 l .8 2022-01-24 2022-01-24 Emergency ER LUKENOVICH, [facility] Emergency 20 [id number] [facility] 12:51:00 16:20:00 LISA 2021-11-30 2021-11-30 Outpatient [facility] [id number] [place] 00:00:00 00:00:00 EDUARD Yañez3 [facility] [address] 2021-08-09 2021-08-10 Inpatient ER CORI, [facility] Internal [id number] [facility] 01:05:00 15:00:00 SAFEERA Med 2021-08-06 2021-08-06 Outpatient ANNALISA DELUNA [facility] Surgery [id number] [facility] 06:59:00 10:36:00 AGUSTIN 2021-08-04 2021-08-04 Outpatient ANNALISA DELUNA [facility] [id number] [facility] 10:10:00 23:59:00 AGUSTIN 2021 2021 Outpatient TEODORO UNDERWOOD [id number] [facility]le 09:00:00 09:00:00 Seybol d 2021-04-13 2021-04-13 Outpatient MECHELLE ROTH [id number] [place] 15:30:00 15:30:00 KATINA Seybo ld 2021-04-06 2021-04-06 Outpatient CYN ROB [id number] [place] 14:30:00 14:30:00 TEODORA PLEITEZ 2021-03-25 2021-03-25 Outpatient MECHELLE BRICEÑO [id number] [place] 14:30:00 14:30:00 EDWARD Seybol d 2021-03-01 2021-03-01 Outpatient MECHELLE BRICEÑO [id number] [place] 14:30:00 14:30:00 EDWARD Seybol d 2021-02-19 2021-02-19 Telemedici FRITZ Joy 1.2.840.114 [id number] M[place]le 09:56:55 10:21:23 ne Simon POWERS 350.1.13.13 Se ybold 1.2.7.2.686 [id number] 2021-02-04 2021-02-04 Outpatient DAYRON RAM [id number] [place] 00:00:00 00:00:00 Seybol d 2021-02-04 2021-02-04 Outpatient DAYRON RAM [id number] [place] 00:00:00 00:00:00 Seybol d 2021-02-03 2021-02-03 Outpatient LAB39 MECHELLE ROB [id number] [place] 11:00:00 11:00:00 Seybol d 2021-02-03 2021-02-03 Outpatient DAYRON RAM [id number] [place] 10:15:00 10:15:00 Seybol d 2021-02-01 2021-02-01 Outpatient MARTHA ROB [id number] [place] 00:00:00 00:00:00 MD ALEJANDRO Seybol d 2021-01-28 2021-01-28 Outpatient TEODORO UNDERWOOD [id number] [place] 00:00:00 00:00:00 Seybol d 2021-01-13 2021-01-13 Outpatient MECHELLE ZENG [id number] [place] 00:00:00 00:00:00 DHAVAL Seyb old 2021-01-07 2021-01-07 Outpatient MARTHA ROB 101 [id number] [place] 00:00:00 00:00:00 MD ALEJANDRO Seybol d 2021-01-06 2021-01-06 Outpatient MECHELLE ZENG [id number] [place] 00:00:00 00:00:00 DHAVAL Humphrey old 2020-12-30 2020-12-30 Outpatient LAB47 MECHELLE ROB [id number] [place] 08:15:00 08:15:00 Seybol d 2020-12-29 2020-12-29 Outpatient MECHELLE ZENG [id number] [place] 16:00:00 16:00:00 DHAVAL Humphrey old 2020-05-22 2020-05-22 Outpatient EKATERINA MHEVELYN MHTW [id number] MHTW 05:56:00 14:23:00 SHIVA Results Test Description Test Time Test Comments Results Result Comments Source COMPREHENSIVE METABOLIC PANEL 2022-01-24 14:14:27 Test Item Value Reference Range Interpretation Comme nts TOTAL PROTEIN (BEAKER) 6.7 gm/dL 6.0-8.5 (test code = 770) ALBUMIN (BEAKER) (test 4.0 g/dL 3.5-5.0 code = 1145) ALKALINE PHOSPHATASE 65 U/L 30-115 (BEAKER) (test code = 346) BILIRUBIN TOTAL (BEAKER) 0.6 mg/dL 0.1-1.2 (test code = 377) SODIUM (BEAKER) (test 138 meq/L 135-148 code = 381) POTASSIUM (BEAKER) (test 3.7 meq/L 3.6-5.5 code = 379) CHLORIDE (BEAKER) (test 106 meq/L 98-106 code = 382) CO2 (BEAKER) (test code 26 meq/L 20-29 = 355) BLOOD UREA NITROGEN 19 mg/dL 10-26 (BEAKER) (test code = 354) CREATININE (BEAKER) 1.17 mg/dL 0.50-1.20 (test code = 358) GLUCOSE RANDOM (BEAKER) 108 mg/dL 70-110 (test code = 652) CALCIUM (BEAKER) (test 8.9 mg/dL 8.5-10.5 code = 697) AST (SGOT) (BEAKER) 23 U/L 5-40 (test code = 353) ALT (SGPT) (BEAKER) 16 U/L 5-50 (test code = 347) EGFR (BEAKER) (test code 75 mL/min/1.73 sq Interpretation of eGFR values = 1092) m Stage Descripti on Result G1 Normal or high >=90 G2 Mildly decreased 60-89 G3a Mildly to moderately 45-5 9 G3b Moderately to severely 30- 44 G4 Severly decreased 15-29 G5 Kidney failure <15Repo rted eGFR is based on the CK D-EPI 2020 equation that d oes not use a race coefficien tEstimated GFR is not as accurate as Creatinine Clearance in pr edicting glomerular filt ration rate. Estimated GFR i s not applicable for dialysis misael patel [employer] Engineer ID - [id number] W/PLT COUNT & AUTO [id number] 13:51:36 Test Item Value Reference Range Interpretation Comments WHITE BLOOD CELL COUNT (BEAKER) 6.1 K/ L 4.0-10.0 (test code = 775) RED BLOOD CELL COUNT (BEAKER) 6.29 M/ L 4.20-5.80 H (test code = 761) HEMOGLOBIN (BEAKER) (test code = 13.1 GM/DL 13.0-16.8 410) HEMATOCRIT (BEAKER) (test code = 43.7 % 36.0-50.0 411) MEAN CORPUSCULAR VOLUME (BEAKER) 69.5 fL 82.0-99.0 L (test code = 753) MEAN CORPUSCULAR HEMOGLOBIN 20.8 pg 27.0-33.0 L (BEAKER) (test code = 751) MEAN CORPUSCULAR HEMOGLOBIN CONC 30.0 GM/DL 32.0-36.0 L (BEAKER) (test code = 752) RED CELL DISTRIBUTION WIDTH 21.5 % 12.0-15.0 H (BEAKER) (test code = 412) PLATELET COUNT (BEAKER) (test 306 K/CU MM 150-430 code = 756) MEAN PLATELET VOLUME (BEAKER) 9.0 fL 6.0-11.5 (test code = 754) NUCLEATED RED BLOOD CELLS 0 /100 WBC 0-0 (BEAKER) (test code = 413) NEUTROPHILS RELATIVE PERCENT 56 % (BEAKER) (test code = 429) LYMPHOCYTES RELATIVE PERCENT 34 % (BEAKER) (test code = 430) MONOCYTES RELATIVE PERCENT 6 % (BEAKER) (test code = 431) EOSINOPHILS RELATIVE PERCENT 4 % (BEAKER) (test code = 432) BASOPHILS RELATIVE PERCENT 1 % (BEAKER) (test code = 437) NEUTROPHILS ABSOLUTE COUNT 3.43 K/ L 1.80-8.00 (BEAKER) (test code = 670) LYMPHOCYTES ABSOLUTE COUNT 2.08 K/ L 1.48-4.50 (BEAKER) (test code = 414) MONOCYTES ABSOLUTE COUNT (BEAKER) 0.38 K/ L 0.00-1.30 (test code = 415) EOSINOPHILS ABSOLUTE COUNT 0.22 K/ L 0.00-0.50 (BEAKER) (test code = 416) BASOPHILS ABSOLUTE COUNT (BEAKER) 0.03 K/ L 0.00-0.20 (test code = 417) IMMATURE GRANULOCYTES-RELATIVE 0 % 0-0 PERCENT (BEAKER) (test code = 2801) (MANUAL DIFFERENTIAL)2022-01-24 13:51:36 Test Item Value Reference Range Interpretation Comments TOTAL COUNTED (BEAKER) (test code = 1351) WBC MORPHOLOGY (BEAKER) (test Normal code = 487) PLT MORPHOLOGY (BEAKER) (test Normal code = 486) ANISOCYTOSIS (BEAKER) (test code 2+ moderate = 961) HYPOCHROMIA (BEAKER) (test code = 2+ moderate 963) MICROCYTES (BEAKER) (test code = 2+ moderate 965) TISSUE [id number] 12:07:44Surgical Pathology Report Case: [id number] Authorizing Provider: Melanie Jones MD Collected: 08/10/2021 08:52 AM Ordering Location: [address] MED/SURG Received: 08/10/2021 12:22 PM Pathologist: Hardik Sibley MD Specimen: Polyp, Colon - Right/Ascending, INJECTION OF VISCOUS SOLUTION, HOT SNARE, CLIPPED X3, TATOOED A. ASCENDING COLON, POLYP, BIOPSY:- FRAGMENTS OF TUBULOVILLOUS ADENOMA Signing Pathologist Direct Phone Line: [phone] signed by Fred Sibley MD on 08/11/2021 at12:07 [id number] paperwork, container, and cassette are all labeled [id number].The specimen is received in formalin in a single container labeled with the patient's name (ARNOLD) and medical record number.A. The specimen labeled "polyp, colonright/ascending" consists of multiple fragments of stewart-white tissue measuring 0.1 to 0.5 cm greatest dimension. The specimen is entirely submitted in a single cassette labeled A1.Microscopic examination is performed and is incorporated in the diagnostic line. [facility], Department of Pathology, [address] [place] [address], [facility], Department of Pathology, [address] [place] [id number], [facility], [facility] of Path[facility], [address] [place] [address], J-TYPE NATRIURETIC FACTOR (BNP)2021-08-10 04:34:03 Test Item Value Reference Range Interpretation Comments B-TYPE NATRIURETIC PEPTIDE (BEAKER) 1 pg/mL 0-100 (test code = 700) [employer] Engineer ID - [id number] METABOLIC [id number] 04:33:29 Test Item Value Reference Range Interpretation Comments TOTAL PROTEIN 5.6 gm/dL 6.0-8.5 L Specimen sligh tly (BEAKER) (test code = hemoly zed 770) ALBUMIN (BEAKER) 3.4 g/dL 3.5-5.0 L Specimen sl ightly (test code = 1145) hemolyzed ALKALINE PHOSPHATASE 49 U/L 30-115 (BEAKER) (test code = 346) BILIRUBIN TOTAL 1.2 mg/dL 0.1-1.2 Specimen sli ghtly (BEAKER) (test code = hemoly zed 377) SODIUM (BEAKER) (test 138 meq/L 135-148 code = 381) POTASSIUM (BEAKER) 4.3 meq/L 3.6-5.5 Specimen slightly (test code = 379) hemolyzed CHLORIDE (BEAKER) 107 meq/L 98-106 H (test code = 382) CO2 (BEAKER) (test 24 meq/L 20-29 code = 355) BLOOD UREA NITROGEN 10 mg/dL 10-26 (BEAKER) (test code = 354) CREATININE (BEAKER) 1.05 mg/dL 0.50-1.20 Specimen slightly (test code = 358) hemolyzed GLUCOSE RANDOM 83 mg/dL 70-110 (BEAKER) (test code = 652) CALCIUM (BEAKER) 8.6 mg/dL 8.5-10.5 (test code = 697) AST (SGOT) (BEAKER) 19 U/L 5-40 Specimen slightly (test code = 353) hemolyzed ALT (SGPT) (BEAKER) 14 U/L 5-50 Specimen slightly (test code = 347) hemolyzed EGFR (BEAKER) (test 73 mL/min/1.73 ESTIMA TEA GFR IS code = 1092) sq m NOT ACCURATE CREATININE CLEARANCE IN PREDICTING GLOMERULAR FILTRATION RATE . ESTIMATED GFR I S NOT APPLICABLE FOR DIALYSIS PATIEN TS. Network Operations Center Engineer ID - CLAVSKICBC W/PLT COUNT & AUTO [id number] 04:16:04 Test Item Value Reference Range Interpretation Comments WHITE BLOOD CELL COUNT (BEAKER) 8.1 K/ L 4.0-10.0 (test code = 775) RED BLOOD CELL COUNT (BEAKER) 4.58 M/ L 4.20-5.80 (test code = 761) HEMOGLOBIN (BEAKER) (test code = 11.7 GM/DL 13.0-16.8 L 410) HEMATOCRIT (BEAKER) (test code = 36.8 % 36.0-50.0 411) MEAN CORPUSCULAR VOLUME (BEAKER) 80.3 fL 82.0-99.0 L (test code = 753) MEAN CORPUSCULAR HEMOGLOBIN 25.5 pg 27.0-33.0 L (BEAKER) (test code = 751) MEAN CORPUSCULAR HEMOGLOBIN CONC 31.8 GM/DL 32.0-36.0 L (BEAKER) (test code = 752) RED CELL DISTRIBUTION WIDTH 14.3 % 12.0-15.0 (BEAKER) (test code = 412) PLATELET COUNT (BEAKER) (test 227 K/CU MM 150-430 code = 756) MEAN PLATELET VOLUME (BEAKER) 10.8 fL 6.0-11.5 (test code = 754) NUCLEATED RED BLOOD CELLS 0 /100 WBC 0-0 (BEAKER) (test code = 413) NEUTROPHILS RELATIVE PERCENT 58 % (BEAKER) (test code = 429) LYMPHOCYTES RELATIVE PERCENT 31 % (BEAKER) (test code = 430) MONOCYTES RELATIVE PERCENT 7 % (BEAKER) (test code = 431) EOSINOPHILS RELATIVE PERCENT 3 % (BEAKER) (test code = 432) BASOPHILS RELATIVE PERCENT 0 % (BEAKER) (test code = 437) NEUTROPHILS ABSOLUTE COUNT 4.74 K/ L 1.80-8.00 (BEAKER) (test code = 670) LYMPHOCYTES ABSOLUTE COUNT 2.54 K/ L 1.48-4.50 (BEAKER) (test code = 414) MONOCYTES ABSOLUTE COUNT (BEAKER) 0.53 K/ L 0.00-1.30 (test code = 415) EOSINOPHILS ABSOLUTE COUNT 0.27 K/ L 0.00-0.50 (BEAKER) (test code = 416) BASOPHILS ABSOLUTE COUNT (BEAKER) 0.03 K/ L 0.00-0.20 (test code = 417) IMMATURE GRANULOCYTES-RELATIVE 0 % 0-0 PERCENT (BEAKER) (test code = 2801) HEMOGLOBIN AND [id number] 00:45:01 Test Item Value Reference Range Interpretation Comments HEMOGLOBIN (BEAKER) (test code = 12.6 GM/DL 13.0-16.8 L 410) HEMATOCRIT (BEAKER) (test code = 39.8 % 36.0-50.0 411) HEMOGLOBIN AND [id number] 18:18:01 Test Item Value Reference Range Interpretation Comments HEMOGLOBIN (BEAKER) (test code = 12.3 GM/DL 13.0-16.8 L 410) HEMATOCRIT (BEAKER) (test code = 39.3 % 36.0-50.0 411) HEMORRHAGE IMAGING, [id number] 16:39:00Unlisted Reason for Exam - Click Yes and Enter Reason Below->No [facility] 1965 Sex: MFINALREPORT PROCEDURE: HEMORRHAGE STUDY with RBCs CPT CODE: 79761 INDICATION: Gastrointestinal Bleeding PROTOCOL: 29.0 mCi of Tc-99m was injected intravenously as labeled autologous redblood cells. Flow images of the abdomen were obtained, followed by serial images for approximately 60 minutes. FINDINGS: There is physiological tracer distribution in the blood pool. IMPRESSION: Negative study. No evidence of active hemorrhage is seen on these images through one hour after injection.Additional images are not plan to do to initiation of colonic prep. Signed: Philippe Velarde MDReport Verified Date/Time: 08/09/2021 16:39:08 Reading Location: [address] Reading Room Elect [facility]onva [facility] signed by: PHILIPPE VELARDE MD on 08/09/2021 04:39 PMTISSUE EXAM 2021-08-09 13:43:45Surgical Pathology Report Case: [id number] Authorizing Provider: Agustin Deluna MD Collected: 08/06/2021 09:16 AM Ordering Location: [facility] Received: 08/06/2021 01:14 PM Pathologist: Fred Sibley MD Specimens: A) - Polyp, Colon - Right/Ascending, HOT SNARE B) - Polyp, Colon - Sigmoid, HOT SNARE A. ASCENDING COLON, POLYP, BIOPSY:- FRAGMENTS OF TUBULOVILLOUS ADENOMAB. SIGMOID COLON, POLYP, BIOPSY:- FRAGMENTS OF TUBULOVILLOUS ADENOMA Signing Pathologist Direct Phone Line: [phone] signed by Fred Sibley MD on 08/09/2021 at 1:43 [id number] paperwork, containers, and cassettes are all labeled [id number].The specimen is received in formalin in 2 containers labeled with the patient's name (ARNOLD) and medical record number.A. The specimen labeled "p olyp, colonright/ascending" consists of multiple fragments of stewart-white mucosa ranging from 0.1 to 0.8 cm greatest dimension. The specimen is entirely submitted in a single cassette labeled A1.B. The specimen labeled "polyp, colonsigmoid" consists of multiple fragments of stewart-white tissue measuring 0.1 to 0.3 cm greatest dimension. The specimen is entirely submitted in a single cassette labeled B1.Microscopic examination is performed and is incorporated in the diagnostic line. [facility], Department of Pathology, [address] [place] [address], Xkcfpg [facility], Department of Pathology, [address] [place] [id number], [facility], Department of Pathology, [place] [address], XXTGHPHO I 2021-08-09 12:58:19 Test Item Value Reference Range Interpretation Comments TROPONIN I (BEAKER) (test code = 397) < ng/mL 0.00-0.03 Troponin I (TnI) levels must be interpreted [...] failure, acidosis, acute neurological disease, and persistent tachyarrhythmia.Network Operations Center Engineer ID - BRUCEHEMOGLOBIN AND [id number] 12:36:55 Test Item Value Reference Range Interpretation Comments HEMOGLOBIN (BEAKER) (test code = 12.7 GM/DL 13.0-16.8 L 410) HEMATOCRIT (BEAKER) (test code = 40.3 % 36.0-50.0 411) COMPREHENSIVE METABOLIC [id number] 02:42:05 Test Item Value Reference Range Interpretation Comments TOTAL PROTEIN 5.6 gm/dL 6.0-8.5 L (BEAKER) (test code = 770) ALBUMIN (BEAKER) 3.5 g/dL 3.5-5.0 (test code = 1145) ALKALINE PHOSPHATASE 52 U/L 30-115 (BEAKER) (test code = 346) BILIRUBIN TOTAL 0.6 mg/dL 0.1-1.2 (BEAKER) (test code = 377) SODIUM (BEAKER) (test 140 meq/L 135-148 code = 381) POTASSIUM (BEAKER) 3.9 meq/L 3.6-5.5 (test code = 379) CHLORIDE (BEAKER) 108 meq/L 98-106 H (test code = 382) CO2 (BEAKER) (test 25 meq/L 20-29 code = 355) BLOOD UREA NITROGEN 18 mg/dL 10-26 (BEAKER) (test code = 354) CREATININE (BEAKER) 1.17 mg/dL 0.50-1.20 (test code = 358) GLUCOSE RANDOM 98 mg/dL 70-110 (BEAKER) (test code = 652) CALCIUM (BEAKER) 8.7 mg/dL 8.5-10.5 (test code = 697) AST (SGOT) (BEAKER) 16 U/L 5-40 (test code = 353) ALT (SGPT) (BEAKER) 14 U/L 5-50 (test code = 347) EGFR (BEAKER) (test 65 mL/min/1.73 ESTIMA TEA GFR IS code = 1092) sq m NOT ACCURATE CREATININE CLEARANCE IN PREDICTING GLOMERULAR FILTRATION RATE . ESTIMATED GFR I S NOT APPLICABLE FOR DIALYSIS PATIEN TS. Network Operations Center Engineer ID - CHOPZCBC W/PLT COUNT & AUTO [id number] 02:22:42 Test Item Value Reference Range Interpretation Comments WHITE BLOOD CELL COUNT (BEAKER) 8.1 K/ L 4.0-10.0 (test code = 775) RED BLOOD CELL COUNT (BEAKER) 4.93 M/ L 4.20-5.80 (test code = 761) HEMOGLOBIN (BEAKER) (test code = 13.1 GM/DL 13.0-16.8 410) HEMATOCRIT (BEAKER) (test code = 41.5 % 36.0-50.0 411) MEAN CORPUSCULAR VOLUME (BEAKER) 84.2 fL 82.0-99.0 (test code = 753) MEAN CORPUSCULAR HEMOGLOBIN 26.6 pg 27.0-33.0 L (BEAKER) (test code = 751) MEAN CORPUSCULAR HEMOGLOBIN CONC 31.6 GM/DL 32.0-36.0 L (BEAKER) (test code = 752) RED CELL DISTRIBUTION WIDTH 13.9 % 12.0-15.0 (BEAKER) (test code = 412) PLATELET COUNT (BEAKER) (test 258 K/CU MM 150-430 code = 756) MEAN PLATELET VOLUME (BEAKER) 10.3 fL 6.0-11.5 (test code = 754) NUCLEATED RED BLOOD CELLS 0 /100 WBC 0-0 (BEAKER) (test code = 413) NEUTROPHILS RELATIVE PERCENT 55 % (BEAKER) (test code = 429) LYMPHOCYTES RELATIVE PERCENT 34 % (BEAKER) (test code = 430) MONOCYTES RELATIVE PERCENT 8 % (BEAKER) (test code = 431) EOSINOPHILS RELATIVE PERCENT 3 % (BEAKER) (test code = 432) BASOPHILS RELATIVE PERCENT 1 % (BEAKER) (test code = 437) NEUTROPHILS ABSOLUTE COUNT 4.46 K/ L 1.80-8.00 (BEAKER) (test code = 670) LYMPHOCYTES ABSOLUTE COUNT 2.71 K/ L 1.48-4.50 (BEAKER) (test code = 414) MONOCYTES ABSOLUTE COUNT (BEAKER) 0.65 K/ L 0.00-1.30 (test code = 415) EOSINOPHILS ABSOLUTE COUNT 0.21 K/ L 0.00-0.50 (BEAKER) (test code = 416) BASOPHILS ABSOLUTE COUNT (BEAKER) 0.04 K/ L 0.00-0.20 (test code = 417) IMMATURE GRANULOCYTES-RELATIVE 0 % 0-0 PERCENT (BEAKER) (test code = 2801) SARS-COV2/RT-PCR ([facility])2021-08-04 15:50:56 Test Item Value Reference Range Interpretation Comments SARS-COV2/RT-PCR Negative Negative The SARS-Co V-2 target (test code = nucleic acids a re not [id number]) detected in thi s specimen. Negative result s do not preclude SARS-C oV-2 infection and s hould not be used as the jia e basis for patient managem ent decisions. Nega tive results must be combine d with clinical observ ations, patient history , and epidemiological information. A false negativ e result may occur if a spec imen is improperly tyron ected, transported or handled. This SARS CoV-2 test is a rapid, real-time RT-PC R test intended for th e qualitative detection of nu cleic acid from SARS-CoV-2 in a nasopharyngeal swab specimen collected from individuals suspected of CO VID-19 by their healthcar e provider. This test has been authorized by FDA under an EUA for use by authorized laboratories. This test is only authorized for the duration of the declaration that circumstances exist justifying the authorization of emergency use of in vitro diagnostic tests for detection and/or diagnosis of COVID-19 under Section 564(b)(1) of the Federal Food, Drug and Cosmetic Act, 21 U.S.C. 360bbb-3(b)(1), unless the authorization is terminated or revoked sooner. Fact Sheet for Healthcare Providers: https://www.[employer] m/Documents/Xpert%20Xpress%20SARS%20CoV-2/Fact%20Sheets/970-5065%77DIME-RJR-8%20 HEALTHCARE%20PROVIDERS%20FACT%20SHEET.pdf Fact Sheet for Healthcare Patients: https://www.[employer]/Documents/Xpert%20Xp ress%20SARS%20CoV-2/Fact%20Sheets/302-3801%72DIUE-FVT-0%20PATIENT%20FACT%20SHEET .pdfCT, EXTREMITY, LOWER, WITH CONTRAST, [id number] 01:51:00FINAL REPORT CT, EXTREMITY, LOWER, WITH CONTRAST, RIGHT INDICATION: post cath hematoma and ecchymosis COMPARISON: None TECHNIQUE: Post-contrast CT imaging of the right hip. Coronaland sagittal reformatted images are also provided. DOSE REDUCTION: Dose modulation, iterative reconstruction, and/or weight-based adjustment of the mA/kV was utilized to reduce the radiation dose to aslow as reasonably achievable. FINDINGS:Soft tissue structures:Subcutaneous stranding [...] are preserved. IMPRESSION: Findings compatible with postprocedural smallsuperficial hematoma in the right inguinal region. No evidence for active bleeding or abscess formation. Signed: JR Cardenas Robert MDReport Verified Date/Time: 05/02/2017 01:51:05 Reading Location: [address] Transitional Reading Room PROTHROMBIN TIME/INR 2017-05-02 00:39:00 Test Item Value Reference Range Interpretation Comments PROTIME (BEAKER) (test code = 10.7 seconds 9.8-12.0 759) INR (BEAKER) (test code = 370) 1.0 <=5.9 RECOMMENDED COUMADIN/WARFARIN INR THERAPY RANGESSTANDARD DOSE: 2.0 - 3.0 Includes: PROPHYLAXIS for venous thrombosis, systemic embolization; TREATMENT for venous thrombosis and/or pulmonary embolus.HIGH RISK: Target INR is 2.5-3.5 for patients with mechanical heart valves.BASIC METABOLIC [id number] 00:36:00 Test Item Value Reference Range Interpretation [...] 697) EGFR (BEAKER) (test 69 mL/min/1.73 ESTIMA TEA GFR IS code = 1092) sq m [...] 0-0 (BEAKER) (test code = 413) TROPONIN [id number] 05:18:00 Test Item Value Reference Range Interpretation [...] Low Risk <150 Borderline 150-199 High Risk 200- 499 Very High Risk >=500Cholesterol Reference Range: Low Risk <200 Borderline 200-239 High Risk >240HDL Cholesterol Reference Range: Low Risk >=60 High Risk <40LDL Cholesterol Reference Range: Optimal <100 Near Optimal 100-129 Borderline 130-159 High 160-189 Very High >=190MAGNESIUM 2017-04-27 05:07:00 Test Item Value Reference Range Interpretation Comments MAGNESIUM (BEAKER) (test code = 1.7 mg/dL 1.5-3.0 627) BASIC METABOLIC [id number] 05:07:00 Test Item Value Reference Range Interpretation [...] 697) EGFR (BEAKER) (test 68 mL/min/1.73 ESTIMA TEA GFR IS code = 1092) sq m NOT ACCURATE CREATININE CLEARANCE IN PREDICTING GLOMERULAR FILTRATION RATE . ESTIMATED GFR I S NOT APPLICABLE FOR DIALYSIS PATIEN TS. HEMOGLOBIN [id number] 04:52:00 Test Item Value Reference Range Interpretation Comments HEMOGLOBIN A1C (BEAKER) (test code = 5.1 % 4.3-6.1 368) CBC W/PLT COUNT & AUTO [id number] 04:38:00 Test Item Value Reference Range Interpretation [...] L 0.00-0.20 (test code = 417) TROPONIN [id number] 13:30:00 Test Item Value Reference Range Interpretation [...] Low Risk <150 Borderline 150-199 High Risk 200- 499 Very High Risk >=500Cholesterol Reference Range: Low Risk <200 Borderline 200-239 High Risk >240HDL Cholesterol Reference Range: Low Risk >=60 High Risk <40LDL Cholesterol Reference Range: Optimal <100 Near Optimal 100-129 Borderline 130-159 High 160-189 Very High >=190TROPONIN I 2017-04-26 06:52:00 Test Item Value Reference Range Interpretation Comments TROPONIN I (BEAKER) (test code = 2.68 ng/mL 0.00-0.15 HH 397) Troponin I (TnI) [...] AbnormalCT, CHEST WITH IV CONTRAST- PE TEST [id number] 04:49:00Reason for exam:->EXTREMITY PAINshoulderWhat is the patient's sedation requirement?->No SedationFINAL REPORT CLINICAL HISTORY: Chest pain, elevated d-dimer, recent right upperextremity surgery FINDINGS: Multiple axial images of the chest were performed after the uncomplicated administration of IV contrast, utilizing a pulmonary embolism protocol. Post-processing coronal reformats were created and interpreted. This exam was performed according to our departmental dose-optimization program, which includes automated exposure control, adjustment of the mA and/or kV according to patient size and/or use of the iterative reconstruction technique. Study quality:Adequate. Comparison:None. Pulmonary arteries: No pulmonary embolism. Lung parenchyma: Curvilinear opacity in the dependent right lung, atelectasis versus scarring Pleural effusion: None. Pneumothorax: None. Tracheobronchial tree: No significant findings. Pulmonary vasculature: No significant findings. Cardiac contoursand great vessels: No significant findings. Mediastinum: No significant findings. Lymph Nodes: No brenda nopathy in the mediastinum or iraj. Skeleton: No acute abnormality. Other: Soft tissue gas in the region of the right deltoid with adjacent subcutaneous and axillary fat stranding, likely related to recent postoperative status. Limited images of upper abdomen: No significant findings. IMPRESSION: No pulmonary embolism. Postsurgical changes in the right shoulder. Curvilinear opacity in the right lung probably reflects atelectasis. Signed: Deb Small Verified Date/Time: 04/26/2017 04:49:00Reading Location: [address] Reading Room VENOUS DOPPLER ARM, [id number] 04:12:00Reason for exam:->EXTREMITY PAINshoulderFINAL REPORT HISTORY: Pain Realtime grayscale, color and spectral Doppler ultrasound of the left upper extremity was performed to evaluate for DVT. There is no occlusive thrombus within the left internal jugular, subclavian, axillary, brachial, basilic, cephalic, radial or ulnar ve ins. There is normal color and spectral Doppler appearance to the veins of the left upper extremity.IMPRESSION: No left upper extremity DVT. Signed: Deb Small Verified Date/Time: 04/26/2017 04:12:13 Reading Location: [address] Reading Room B-TYPE NATRIURETIC FACTOR (BNP)2017-04-26 02:46:00 Test Item Value Reference Range Interpretation Comments B-TYPE NATRIURETIC PEPTIDE (BEAKER) 10 pg/mL 0-100 (test code = 700) URINALYSIS WITH MICROSCOPIC IF [id number] 02:40:00 Test Item Value Reference Range Interpretation [...] 463) SOURCE(BEAKER) (test code = 2795) TROPONIN [id number] 02:17:00 Test Item Value Reference Range Interpretation [...] CK-MB Reference Range:<5 Normal5-10 Borderline>10 AbnormalCOMPREHENSIVE METABOLIC [id number] 02:07:00 Test Item Value Reference Range Interpretation [...] 347) EGFR (BEAKER) (test 58 mL/min/1.73 ESTIMA TEA GFR IS code = 1092) sq m NOT ACCURATE CREATININE CLEARANCE IN PREDICTING GLOMERULAR FILTRATION RATE . ESTIMATED GFR I S NOT APPLICABLE FOR DIALYSIS PATIEN TS. [id number] 02:02:00 Test Item Value Reference Range Interpretation Comments D-DIMER QUANTITATIVE (BEAKER) 0.68 MG/L FEU <0.50 H (test code = 671) REGARDING D-DIMER RESULTS: The 98% NPV (Negative Predictive Value) for DVT/PE exclusion is 0.50 mg/LFEU as suggested by the fitter welder and as approved by the FDA.RAD, CHEST, 1 VIEW, NON [id number] 01:56:00Reason for exam:- >EXTREMITY PAINshoulderFINAL REPORT EXAMINATION: AP PORTABLE CHEST RADIOGRAPH CLINICAL INDICATION: Pain IMPRESSION: No comparison studies are available. Thin linear opacities are noted in the perihilar regions. The morphology and distribution favor subsegmental atelectasis or scarring. No evidence of pulmonary edema, pleural effusion or pneumothorax. The heart size is normal. Mediastinal contours are sharp. No evidence of an acute osseous abnormality.. Signed: Eduard Sierra MDReport Verified Date/Time:04/26/2017 01:56:22 Reading Location: [address] Transitional Reading Room CBC W/PLT COUNT & AUTO [id number] 01:50:00 Test Item Value Reference Range Interpretation [...] K/ L 0.00-0.20 (test code = 417) Notes Date/Time Note Provider Source 2017-04-28 23:01:00-00:00 ALONSO KEARNEY [facility] DISCHARGE SUMMARY DAYRON ARNOLD FACILITY: [facility] BILLING #: [id number] ROOM: [address] [place] [address] MR #: [id number] : 1965 DATE OF ADMISSION: 04/26/2017 DATE OF DISCHARGE: 04/28/2017 ATTENDING PHYSICIAN: Alonso Kearney MD FINAL DIAGNOSES 1. Ibf-DS-noowmwgub myocardial infarction, statu s post heart catheterization with drug-eluting stent in the left anterior susan cending. Post stent, patient is stable. 2. Status post recent right shoulder surgery. PERTINENT HOSPITAL COURSE: This is a 52-year-old male who was admitted with acute onset of the pain on the left side of the chest and left upper extremity shoulder area after a recent procedure done in the right shoulder. So, patient was advised to come to the ER, found to have an elevated troponin, was evaluated by the director software development, rosaline en to the laborer egg producing farm, found to have a zqo-EI-nsxcfzqlz IL with a drug-eluting s tent (SUSAN) placed in the LAD. Patient at the present time is on aspirin and Br ilinta. Patient is otherwise clinically feeling better. The pain is mostly in the right shoulder area where the patient already has narcotics at home. Patient tolerating p.o. intake, ambulating. Denies any shortness of segun th, tolerating statin. I have provided a script for Brilinta with strict instructions that it needs to be picked up before patient can be discharged. S o, once the Brilinta was picked up by the family as it was covered by the insurance, patient was discharged home with the medication as recommend ed by the director software development. Patient was hemodynamically stable at the time o f discharge. Follow up with the PCP and cardiology after discharge. Stable a t the time of discharge. DISCHARGE MEDICATIONS: Please see discharge medi cation list. NR/gm P P Job#: [id number] Doc#: [id number] FN: [id number] cc: Alonso Kearney MD 2017-04-26 21:40:00-00:00 ALONSO KEARNEY [facility] HISTORY AND PHYSICAL EXAMINATION DAYRON ARNOLD FACILITY: [facility] BILLING #: [id number] ROOM: [facility] [id number] MR #: [id number] : 1965 DATE OF ADMISSION: 04/26/2017 ADMITTING PHYSICIAN: Alonso Kearney MD REASON FOR ADMISSION: Acute onset of pain on the left side of the chest radiating to the left shoulder area. HISTORY OF PRESENT ILLNESS: This patient is a ve ry pleasant gentleman. He had a shoulder surgery done on the right shoulder an d after that the patient was sent home. Patient post shoulder surgery in the [facility], he was complaining of some pain. Also, the EKG did not show any EKG changes. Patient was discharged home. Patient continued to have p ain. So he called online with his insurance company, the nurse, who advised hi m to come to the ER and the orthopedic doctor, was advis ed that patient may have risk for the blood clot, he was advised to call 911. He hung up 911 thinking that it was not that serious, then finally when the nurse convinced him that jeffrey key may have a heart attack, he decided to come to the ER, found to have an elev ated troponin, diagnosed with vvf-FZ-iyujmtpkn IL. Patient has left-sided pres sure radiating down the left arm. Troponin is up more than 2. So patient was admitted. When I have seen the patient in the ER, patient was lucia pitts for cardiac evaluation. Patient was taken to the laborer egg producing farm after I have evaluated the patient and patient had high-grade mid LAD stenosis, and patient had a d rug-eluting stent placement done. So patient was admitted for monitoring. PAST MEDICAL HISTORY: No significant cardiac his tory. In fact, patient had multiple orthopedic surgeries without any proble m and he is usually very active. PAST SURGICAL HISTORY: Significant for shoulder surgery, bilateral knee meniscal surgery, deviated nasal septal surgery, and other orthopedic surgery. MEDICATIONS: Reviewed. ALLERGIES: NO KNOWN DRUG ALLERGIES. SOCIAL: Denies any smoking or drinking. Usually very active. PHYSICAL EXAM VITAL SIGNS: The patient is afebrile. Heart rate is 70, respiration is stable with BP 168/91, 116/55 with O2 sat of 93%. HEENT: Conjunctivae are pink. Sclerae nonicteric . Oral mucosa is moist. NECK: No increased JVD. LUNGS: Bilateral decreased breath sounds. HEART: Rhythm regular. ABDOMEN: Soft. Bowel sound is present. EXTREMITIES: On the right shoulder, patient has a dressing in place. No lower extremity edema. LABS: Total CPK is 1494, it went up to 1825. MB was 22.1. Troponin was 2.68 with the 2nd set was 4.24. T he EKG was interpreted as sinus rhythm, some T-wave inversion in leads III and aVF. ASSESSMENT AND PLAN 1. Chest pain, left sided, associated with eleva tea troponin. Admitted with vgy-TN-kiiuazfcu myocardial infarction. Patient was taken to the catheterization laboratory, and patient is statu s post drug-eluting stent, started on aspirin and Brilinta. Patient was als o on Lovenox. Patient also is on beta armand and statin. Patient will be star tea on angiotensin-converting enzyme or angiotensin receptor armand once the renal function stabilizes. 2. Shoulder surgery. Continue with the p ain control, which was the main issue, and the physical therapy, occupational t herapy as tolerated. The lipid profile was done, which showed LDL o f 71. Patient also had a venous Doppler of the left upper extremity done, which was negative for deep venous thrombosis, and patient also had a computerized tomography chest done, w hich showed no pulmonary embolism. The creatinine was 1.31 which was a bump from 1.12, so will follow up and monitor the trend of the renal function. NR/ P P Job#: [id number] Doc#: [id number] FN: [id number] cc: Alonso Kearney MD 2017-04-26 12:10:00-00:00 TAY MALIK [facility] REPORT OF PROCEDURE DAYRON ARNOLD FACILITY: [facility] BILLING #: [id number] ROOM: 3TX [id number] MR #: [id number] : 1965 DATE OF PROCEDURE: 04/26/2017 SURGEON: Tay aMlik MD DATE OF : 1965. PREOPERATIVE DIAGNOSIS: POSTOPERATIVE DIAGNOSIS: PROCEDURE PERFORMED 1. Coronary angiography. 2. Left heart catheterization. 3. Percutaneous intervention of left anterior de scending. INDICATIONS: Non ST-elevation IL. PROCEDURE IN DETAIL: Patient was brought to the cardiac catheterization lab in a fasting state, prepped and draped in the [facility] sterile manner. Right femoral artery was accessed and a 6-Gambian sheat h was inserted. Femoral angiography showed sheath size suitable for clos ure. Diagnostic angiography was performed with a JL4 and JR4 diagnostic catheter. Angled pigtail catheter was used to perform left heart catheterization. FINDINGS Dominance: Right dominant system. Left coronary artery: Left main large, long; bif urcates into LAD and left circumflex artery. Left anterior descending artery: Large vessel. I t gives a smaller 1st diagonal artery and a very large 2nd diagonal ar azul. The mid LAD just beyond this diagonal artery takeoff has hazy-rydero allan 95% to 99% lesion. The LAD is actually smaller than the diagonal artery , but it is still at least a 2.5-mm vessel and almost reaches the apex and gi ves multiple septal arteries. The diagonal arteries, which is a large vessel, has no significant stenosis. The 2nd diagonal artery has at least 3 further b ranches and supplies a large territory. Left circumflex artery: A medium-caliber vessel. Basically has ostial 40% to 50% stenosis. The left circumflex then leaves as a 1 OM artery that supplies descending myocardium and further divid es into 2 or 3 branches. There is mild luminal irregularity present in th e left circumflex system elsewhere. The right coronary artery: Large dominant vessel . It bifurcates into PDA and gives multiple PLB arteries. It actually con tinues and supplies multiple branches in the OM territory and this explains o nly 1 OM artery, because all of that territory is supplied by the RCA. The RC A has luminal irregularity in its entirety. Left heart catheterization was performed. LVEDP was elevated at 20 mmHg. Mid distal anterior wall appears mildly hypokine tic. EF was probably about 50%. INTERVENTIONAL PROCEDURE: Decision was made to p roceed with percutaneous intervention of the LAD. Patient had received Lo venox at 8:30 a.m. this morning and hence was fully anticoagulated and t herefore did not require heparin or Angiomax. XBT 0.5 guide was engaged i nto the left main coronary artery. Next, [employer] wire was advanced i nto the distal LAD. Then we advanced a 2.0 x 15-mm predilation balloon and i nflation was performed to relieve the stenosis. Next, a 2.5 x 20 mm Synerg y drug-eluting stent was deployed in the mid LAD. Post deployment angiogr aphy showed that there was a slight haziness at the distal stent edge and the refore a 2.25 x 12 mm Synergy drug-eluting stent was deployed overlapping with the previously placed stent. Both the stents were postdilated with a 2.5-mm n oncompliant balloon, achieving excellent angiographic result. The wir e was then removed and final angiography showed excellent results without any wire dissection or perforation or haziness. The diagonal artery was purposely not jailed because it is a large vessel and actually bigger than the LAD. At the end of the procedure, right femoral arter y sheath was removed and Angio-Seal was deployed without any difficulty. IMPRESSION 1. Non ST-elevation myocardial infarction from h igh-grade stenosis of the mid left anterior descending with haziness and unsta ble plaque treated with Synergy drug-eluting stent, 2.5 x 20 mm and 2.25 x 12 mm stents were used in overlapping fashion. 2. [id number] disease of the ostial circum flex, luminal irregularity in the right coronary artery and left circumflex te rritory. PLAN 1. Bedrest for 4 to 6 hours. 2. Start the patient on aspirin and Brilinta and other prudent cardiovascular medications. 3. Statin therapy. 4. Will discuss number of times with the patient that patient will need to comply with dual antiplatelet therapy for at nirali st 1 year and he should not get off any of the medications without our appro stephanie. Patient is willing to be compliant. BLOOD LOSS: Minimal. MODERATE SEDATION: The patient was given moderat e sedation during the procedure. Patient was reassessed every 15 minut es for sedation requirement. Patient was kept on oxygen throughout the proced ure and kept on printing roller polisher. TOTAL DURATION OF PROCEDURE: Sixty minutes. ROGER/denise A P Job#: [id number] Doc#: [id number] FN: [id number] cc: Tay Malik MD
--- NOTE | 2023-02-15 10:56 | RAD REPORT ---
EXAM DESCRIPTION: CT - Stone Protocol - 02/15/2023 10:41 am CLINICAL HISTORY: Abdominal pain. Right flank pain COMPARISON: 2021 TECHNIQUE: Computed axial tomography of the abdomen pelvis was obtained without oral or IV contrast. Lack of IV and oral contrast limits evaluation of solid organs, appendix, bowel, and vessels. Lara l reformatted images were obtained and reviewed. All CT scans are performed using dose optimization technique as appropriate and may include automated exposure control or mA/KV adjustment according to patient size. FINDINGS: Tiny bilateral renal calculi. No hydronephrosis. A ureteral calculus is not seen. No bladd er calculus. The prostate gland is mildly to moderately enlarged. The liver, spleen, pancreas and adrenals appear grossly normal There is no evidence of diverticulitis. The appendix appears normal Moderate anterior subluxation L5 on S1. Spondylolysis L5 IMPRESSION: Negative for a genitourinary calculus
[2023-02-15 11:00] LABS: Absolute Lymphocytes (CBC) 1.2 K/uL (0.7-4.9); MCV 78.8 fL (80-100); MPV 7.4 fL (7.6-11.3); Platelets 289 thou/uL (152-406); RBC Red Blood Cell Count 5.71 M/uL (4.33-5.43)
[2023-02-15 11:36] LABS: Urine Bacteria None Seen /HPF (<20); Urine Bilirubin NEGATIVE (Negative); Urine Blood Negative (Negative); Urine Clarity Turbid (Clear); Urine Color Dark-Yellow (Yellow); Urine Glucose NEGATIVE (Negative); Urine Mucus Slight /HPF (None Seen); Urine Protein TRACE (Negative); Urine RBC <5 /HPF (None Seen); Urine Urobilinogen Normal (Normal)
[2023-02-15 11:46] LABS: Bilirubin Total 0.3 mg/dL (0.2-1.0); Potassium 3.9 mEq/L (3.5-5.1); Protein, Total 6.4 g/dL (6.4-8.2)
--- NOTE | 2023-02-15 11:53 | RAD REPORT ---
EXAM DESCRIPTION: Ang Single View02/15/2023 11:47 am CLINICAL HISTORY: Cough COMPARISON: 2021 FINDINGS: The lungs appear clear of acute infiltrate. The heart is normal size A battery pack overlies the right chest. A lead extends into the right neck IMPRESSION: No acute abnormalities displayed
--- NOTE | 2023-02-15 12:08 | ER ---
Nurse's Notes [facility] Name: Andrew Prasad Age: 57 yrs Sex: Male : 1965 Arrival Date: 02/15/2023 Time: 10:22 Bed 6 Private MD: Diagnosis: UTI/ Urinary tract infection, site not specified;Enlarged prostate with lower urinary tract symptoms Presentation: 02/15 10:27 Chief complaint: Patient states: he has been congested for approx two weeks with a ap3 cough. patient has been evaluated at urgent care and received multiple antibiotics during this time. patient also reports difficulty urinating since Monday02/11/23 with a burning sensation and right flank pain. Coronavirus screen: At this time, the client does not indicate any symptoms associated with coronavirus-19. Ebola Screen: No symptoms or risks identified at this time. Initial Sepsis Screen: Does the patient meet any 2 criteria? No. Patient's initial sepsis screen is negative. Does the patient have a suspected source of infection? Yes: Dysuria/Frequency/Urgency/UTI. Risk Assessment: Do you want to hurt yourself or someone else? Patient reports no desire to harm self or others. Onset of symptoms is unknown. 10:27 Method Of Arrival: Ambulatory ap3 10:27 Acuity: JC 3 ap3 Triage Assessment: 10:30 General: Appears in no apparent distress. Behavior is calm, cooperative, appropriate ap3 for age. Pain: Complains of pain in right low back. Neuro: Level of Consciousness is awake, alert, obeys commands, Oriented to person, place, time, situation. Respiratory: Airway is patent Respiratory effort is even, unlabored, Respiratory pattern is regular, symmetrical. : Reports pain in right flank(s), urgency, urinary frequency. Historical: - Allergies: 10:30 Azithromycin; ap3 - PMHx: 10:30 Myocardial infarction; ap3 - PSHx: 10:30 Appendectomy; Bicep sx; Mitesh knee sx; cardiac stent; hernia; Right shoulder sx; ap3 - Immunization history:: Client reports having NOT received the Covid vaccine. - Social history:: Smoking status: Patient denies any tobacco usage or history of. Screenin:31 [facility] ED Fall Risk Assessment (Adult) History of falling in the last 3 months, ap3 including since admission No falls in past 3 months (0 pts). Abuse screen: Denies threats or abuse. Nutritional screening: No deficits noted. Tuberculosis screening: No symptoms or risk factors identified. Assessment: 11:00 General: Appears in no apparent distress. comfortable, Behavior is calm, cooperative, ko1 appropriate for age. Pain: Complains of pain in back and right low back. Neuro: No deficits noted. Cardiovascular: No deficits noted. Cardiovascular: Denies chest pain, Cardiovascular: Patient's skin is warm and dry. Rhythm is regular. Respiratory: No deficits noted. Breath sounds are clear bilaterally. Respiratory: Respiratory effort is even, unlabored, Respiratory pattern is regular. GI: No deficits noted. : No deficits noted. EENT: No deficits noted. Derm: No deficits noted. Musculoskeletal: No deficits noted. Vital Signs: 10:27 BP 145 / 99; Pulse 86; Resp 18; Temp 99.1; Pulse Ox 97% ; ap3 11:01 BP 143 / 94; Pulse 85; Resp 18; Pulse Ox 96% ; ko1 ED Course: 10:24 Patient arrived in ED. rg4 10:26 Beverly Moreau FNP-C is PHCP. kb 10:26 Espinoza Stubbs DO is Attending Physician. kb 10:30 Triage completed. ap3 10:31 Arm band placed on left wrist. ap3 10:43 CT Stone Protocol In Process Unspecified. EDMS 10:43 Adriana Richard, RN is Primary Nurse. ko1 11:00 Patient has correct armband on for positive identification. Bed in low position. Call ko1 light in reach. Provided Education on: na. Pulse ox on. NIBP on. Door closed. 11:00 No provider procedures requiring assistance completed. Inserted saline lock: 20 gauge ko1 in right antecubital area, using aseptic technique. Blood collected. 11:03 CBC with Diff Sent. ld1 11:03 CMP Sent. ld1 11:03 Lipase Sent. ld1 11:25 Urinalysis w/ reflexes Sent. ld1 11:49 Chest Single View XRAY In Process Unspecified. EDMS 12:42 IV discontinued, intact, bleeding controlled, No redness/swelling at site. Pressure ko1 dressing applied. Administered Medications: 12:30 Drug: Rocephin IV 1 grams Route: IV; Rate: calculated rate; Site: right antecubital; ld1 Medication: 12:42 VIS not applicable for this client. ko1 Outcome: 12:07 Discharge ordered by . denise 12:42 Discharged to home ambulatory, with family. ko1 12:42 Condition: good 12:42 Discharge instructions given to patient, family, Instructed on discharge instructions, follow up and referral plans. Demonstrated understanding of instructions, follow-up care. 12:44 Condition: good ko1 12:44 Discharge instructions given to patient, family, Instructed on discharge instructions, follow up and referral plans. medication usage, Demonstrated understanding of instructions, follow-up care, medications, Prescriptions given X 1. 12:44 Patient left the ED. ko1 Signatures: Dispatcher [employer] EDMS Beverly Moreau, PATROL COMMUNITY SERVICE OFFICER-C PATROL COMMUNITY SERVICE OFFICER-Sujey Schwab rg4 Darling Weller RN RN [id number] Taylor Stubbs, RN RN ld1 Adriana Richard, RN RN ko1 Corrections: (The following items were deleted from the chart) 12:44 12:42 Discharged to home ambulatory, with family, ko1 ko1
--- NOTE | 2023-02-15 12:08 | EDPHYS ---
Physician Documentation [facility] Name: Andrew Prasad Age: 57 yrs Sex: Male : 1965 Arrival Date: 02/15/2023 Time: 10:22 Bed 6 Private MD: ED Physician Espinoza Stubbs HPI: 02/15 12:35 This 57 yrs old Male presents to ER via Ambulatory with complaints of Urinary Problem, kb Congestion. 12:35 The patient presents with urinary symptoms, dysuria, urinary frequency. Onset: The kb symptoms/episode began/occurred 4 day(s) ago. Modifying factors: The symptoms are alleviated by nothing, the symptoms are aggravated by nothing. Associated signs and symptoms: The patient has no apparent associated signs or symptoms. Severity of symptoms: At their worst the symptoms were moderate, in the emergency department the symptoms are unchanged. The patient has not experienced similar symptoms in the past. The patient has been recently seen at an urgent care. Pt reports dysuria and frequency for 4 days. Was seen at and given antibiotics, but still having symptoms. Reports he has a history of enlarged prostate and is scheduled for biopsy next week. Also reports cough and congestion for about 2 weeks. STates he was told he had borderline walking pneumonia so he was given a z-pack. . Historical: - Allergies: 10:30 Azithromycin; ap3 - PMHx: 10:30 Myocardial infarction; ap3 - PSHx: 10:30 Appendectomy; Bicep sx; Mitesh knee sx; cardiac stent; hernia; Right shoulder sx; ap3 - Immunization history:: Client reports having NOT received the Covid vaccine. - Social history:: Smoking status: Patient denies any tobacco usage or history of. ROS: 12:29 Constitutional: Negative for fever, chills, and weight loss. kb 12:29 ENT: Positive for sinus congestion. 12:29 Respiratory: Positive for cough. 12:29 : Positive for urinary symptoms, urinary frequency, burning with urination. 12:29 All other systems are negative. Exam: 12:29 Constitutional: This is a well developed, well nourished patient who is awake, alert, kb and in no acute distress. Head/Face: Normocephalic, atraumatic. ENT: Moist Mucous membranes Cardiovascular: Regular rate Respiratory: Respirations even and unlabored. No increased work of breathing. Talking in full sentences Abdomen/GI: Soft, non-tender. No distention Skin: Warm, dry with normal turgor. Normal color. MS/ Extremity: Pulses equal, no cyanosis. Neurovascular intact. Full, normal range of motion. Neuro: Awake and alert, GCS 15, oriented to person, place, time, and situation. Moves all extremities. Normal gait. Vital Signs: 10:27 BP 145 / 99; Pulse 86; Resp 18; Temp 99.1; Pulse Ox 97% ; ap3 11:01 BP 143 / 94; Pulse 85; Resp 18; Pulse Ox 96% ; ko1 MDM: 10:26 Patient medically screened. kb 12:30 Differential diagnosis: prostatitis, uti, kidney stone, pneumonia, bronchitis, uri. kb Data reviewed: vital signs, nurses notes. Counseling: I had a detailed discussion with the patient and/or guardian regarding the historical points, exam findings, and any diagnostic results supporting the discharge/admit diagnosis, lab results, radiology results, the need for outpatient follow up, a urologist, to return to the emergency department if symptoms worsen or persist or if there are any questions or concerns that arise at home. 02/15 10:33 Order name: CBC with Diff; Complete Time: 11:21 kb 02/15 10:33 Order name: CMP; Complete Time: 11:46 kb 02/15 10:33 Order name: Lipase; Complete Time: 11:46 kb 02/15 10:33 Order name: Urinalysis w/ reflexes; Complete Time: 11:45 kb 02/15 11:40 Order name: Urine Culture EDMS 02/15 10:33 Order name: Chest Single View XRAY; Complete Time: 11:54 kb 02/15 10:33 Order name: CT Stone Protocol; Complete Time: 11:21 kb 02/15 10:33 Order name: IV Saline Lock; Complete Time: 11:03 kb 02/15 10:33 Order name: Labs collected and sent; Complete Time: 11:03 kb 02/15 11:04 Order name: Labs - recollect needed: recollect light green top; Complete Time: 11:25 bd Administered Medications: 12:30 Drug: Rocephin IV 1 grams Route: IV; Rate: calculated rate; Site: right antecubital; ld1 Disposition: 14:35 Co-signature as Attending Physician, Espinoza Stubbs DO I was immediately available on-site ms3 in the Emergency Department for consultation in the care of the patient. Disposition Summary: 02/15/23 12:07 Discharge Ordered Location: Home kb Condition: Stable kb Diagnosis - UTI/ Urinary tract infection, site not specified kb - Enlarged prostate with lower urinary tract symptoms kb Followup: kb - With: Private Physician - When: 2 - 3 days - Reason: Recheck today's complaints, Continuance of care, Re-evaluation by your physician Followup: kb - With: Emergency Department - When: As needed - Reason: Worsening of condition Discharge Instructions: - Discharge Summary Sheet kb - Urinary Tract Infection, Adult, [id number] kb - Prostatitis, [id number] kb Forms: - Medication Reconciliation Form kb - Thank You Letter kb - Antibiotic Education kb - Prescription Opioid Use kb - Patient Portal Instructions kb - Leadership Thank You Letter kb Prescriptions: - Pyridium 200 mg Oral Tablet - take 1 tablet by ORAL route every 8 hours for 3 days; 9 tablet; Refills: 0, kb Product Selection Permitted Signatures: Dispatcher [employer] EDMS Beverly Moreau, PLATEN PRESS OPERATOR APPRENTICE-C PLATEN PRESS OPERATOR APPRENTICE-Char Meeks Amanda RN RN ap3 Espinoza Stubbs DO DO ms3 Taylor Stubbs, RN RN ld1 Corrections: (The following items were deleted from the chart) 12:38 12:35 The patient has not recently seen a physician, denise walker
[2023-02-15] MEDS ORDERED: CEFTRIAXONE 1000 MG/VIAL ONE (12:20)
[2023-02-15 13:05] VITALS: TEMP 99.1
[2023-02-15 13:10] VITALS: BP 143/94; O2SAT 96
== END 2023-02-15 12:44 | disposition home or self-care (01) ==
LOC: ER 10:22
DX: N39.0 Urinary tract infection, site not specified (principal); N40.1 Benign prostatic hyperplasia with lower urinary tract symptoms; Z88.1 Allergy status to other antibiotic agents
CPT/HCPCS: 87088; 85025; 81001; 87086; 36415; 83690; 80053; 76377; 74176; 71045; J0696; 96374; 99284

== ENCOUNTER 2025-01-18 03:19 | Inpatient (IN) | payer BC, SELFPAY ==
[2025-01-18] MEDS ORDERED: MORPHINE 4 MG/ML SYR ONE (03:32)
[2025-01-18] MEDS ORDERED: FAMOTIDINE 20 MG/2 ML VIAL IV ONE (03:32)
[2025-01-18] MEDS ORDERED: ONDANSETRON 4 MG/2 ML VIAL ONE ×2 (03:32→12:20)
[2025-01-18 04:10] LABS: ALT/SGPT 40.0 U/L (16-61); AST/SGOT 18.0 U/L (15-37); Albumin 3.8 g/dL (3.4-5.0); Albumin/Globulin Ratio 1.2 (1.1-1.8); Alkaline Phosphatase 70.0 U/L (45-117); Anion Gap 10.4 mEq/L (5.0-15.0); BUN Blood Urea Nitrogen 23.0 mg/dL (7-18); Globulin 3.1 g/dL (2.3-3.5); Glucose Level 145.0 mg/dL (74-106); Lipase 61.0 U/L (13-75); Potassium 3.4 mEq/L (3.5-5.1)
[2025-01-18 05:22] LABS: Absolute Lymphocytes (CBC) 2.3 K/uL (0.7-4.9); Hematocrit 48.5 % (39.6-49.0); Hemoglobin 15.8 g/dL (13.6-17.9); MCH 28.3 pg (27.0-35.0); MCHC 32.5 g/dL (32.0-36.0); MCV 87.0 fL (80-100); MPV 9.1 fL (7.6-11.3); Nucleated RBC Absolute Count 0.0 (0-0); Nucleated Red Blood Cells % 0.1 % (0-0); RBC Red Blood Cell Count 5.58 M/uL (4.33-5.43); White Blood Count 5.90 thou/uL (4.3-10.9)
--- NOTE | 2025-01-18 05:59 | EDPHYS ---
Physician Documentation [facility] Name: Andrew Prasad Age: 59 yrs Sex: Male : 1965 Arrival Date: 01/18/2025 Time: 03:19 Bed 19 Private MD: ED Physician Espinoza Stubbs HPI: 01/18 04:53 This 59 yrs old Male presents to ER via Ambulatory with complaints of Abdominal Pain, ms3 Epigastric Pain. 04:53 59-year-old male with past medical history of myocardial infarction presents to the [facility] [place] department for upper abdominal pain that began 2 hours prior to arrival. Patient states his discomfort is an 8/10. Patient states his symptoms began 3 hours after eating shrimp. He denies any alleviating or inciting factors. He endorses nausea and vomiting. Denies fevers or chills.. Historical: - Allergies: 03:29 Azithromycin; br2 - PMHx: 03:29 Myocardial infarction; br2 - PSHx: 03:29 Appendectomy; Bicep sx; Mitesh knee sx; cardiac stent; hernia; Right shoulder sx; br2 - Immunization history:: Adult Immunizations not up to date. - Infectious Disease History:: Denies. - Social history:: Smoking status: Patient denies any tobacco usage or history of. Patient/guardian denies using alcohol, street drugs. ROS: 04:53 Constitutional: Negative for fever, and chills. Cardiovascular: Negative for chest ms3 pain, and palpitations. Respiratory: Negative for shortness of breath, cough, wheezing, and pleuritic chest pain, 04:53 Skin: Negative for injury, rash, and discoloration, 04:53 Abdomen/GI: Positive for abdominal pain, nausea and vomiting, Negative for diarrhea, Exam: 04:44 ECG was reviewed by the Attending Physician. ms3 04:53 Constitutional: This is a well developed, well nourished patient who is awake, alert, ms3 and in no acute distress. Cardiovascular: Regular rate and rhythm with a normal S1 and S2. No gallops, murmurs, or rubs. Normal PMI, no JVD. No pulse deficits. Respiratory: Lungs have equal breath sounds bilaterally, clear to auscultation and percussion. No rales, rhonchi or wheezes noted. No increased work of breathing, no retractions or nasal flaring. 04:53 Abdomen/GI: Inspection: abdomen appears normal, Bowel sounds: normal, in all quadrants, Palpation: moderate abdominal tenderness, in the epigastric area, right upper quadrant and left upper quadrant, Vital Signs: 03:27 BP 178 / 93; Pulse 78; Resp 18; Temp 98.9; Pulse Ox 99% ; Weight 97.52 kg; Height 5 ft. br2 9 in. ; Pain 9/10; 05:16 BP 161 / 86; Pulse 74; Resp 17; Temp 98.3; Pulse Ox 97% on R/A; Pain 3/10; zm 06:21 BP 141 / 78; Pulse 71; Resp 15; Temp 98.3; Pulse Ox 96% ; Pain 4/10; bm8 07:15 BP 127 / 87; Pulse 66; Resp 15; Temp 98; Pulse Ox 95% ; Pain 0/10; jl7 03:27 Body Mass Index 31.75 (97.52 kg, 175.26 cm) br2 03:27 Pain Scale: Adult br2 05:16 Pain Scale: Adult zm 06:21 Pain Scale: Adult bm8 07:15 Pain Scale: Adult jl7 [place] Coma Score: 04:10 Eye Response: spontaneous(4). Motor Response: obeys commands(6). Verbal Response: zm oriented(5). Total: 15. 06:21 Eye Response: spontaneous(4). Motor Response: obeys commands(6). Verbal Response: bm8 oriented(5). Total: 15. MDM: 03:30 Medical Screening Exam initiated ms3 04:53 Differential diagnosis: cholecystitis, Cholelithiasis, non-specific abd pain, ms3 pancreatitis. 07:25 Data reviewed: vital signs, nurses notes, lab test result(s), radiologic studies, and ms3 as a result, I will admit patient. Consideration of Admission/Observation Patient was admitted/placed on observation. Management of patient was discussed with the following: Hospitalist: Dr Villanueva. Abstract Checker: Dr Godfrey. I considered the following discharge prescriptions or medication management in the emergency department Medications were administered in the Emergency Department. See MAR. Independent interpretation of the following test(s) in the Emergency Department CT Scan: My interpretation is CT abdomen and pelvis images reviewed by me showed enlarged gallbladder, thickened gallbladder wall. Counseling: I had a detailed discussion with the patient and/or guardian regarding the historical points, exam findings, and any diagnostic results supporting the discharge/admit diagnosis, lab results, radiology results, the need for further work-up and treatment in the hospital. ED course: Discussed necessity for admission with patient and his . They understand agree with plan. All questions were answered.. 01/18 03:22 Order name: CBC with Diff; Complete Time: 05:42 ms3 01/18 03:22 Order name: CMP; Complete Time: 05:01 ms3 01/18 03:22 Order name: Lipase; Complete Time: 05:01 ms3 01/18 06:49 Order name: CBC with Automated Diff EDMS 01/18 06:49 Order name: CBC with Automated Diff EDMS 01/18 06:49 Order name: CBC with Automated Diff EDMS 01/18 06:49 Order name: CBC with Automated Diff EDMS 01/18 06:49 Order name: CBC with Automated Diff EDMS 01/18 06:49 Order name: Comprehensive Metabolic Panel EDMS 01/18 06:49 Order name: Comprehensive Metabolic Panel EDMS 01/18 06:49 Order name: Comprehensive Metabolic Panel EDMS 01/18 06:49 Order name: Comprehensive Metabolic Panel EDMS 01/18 06:49 Order name: Comprehensive Metabolic Panel EDMS 01/18 03:31 Order name: CT Abd/Pelvis - IV Contrast Only; Complete Time: 07:07 ms3 01/18 03:22 Order name: IV Saline Lock; Complete Time: 03:44 ms3 01/18 03:22 Order name: Labs collected and sent; Complete Time: 03:44 ms3 EC:44 Rate is 74 beats/min. Rhythm is regular. QRS Hibbs is Normal. [place] interval is normal. QRS ms3 interval is normal. Clinical impression: NSR w/ Non-specific ST/T Changes. Interpreted by me. Reviewed by me. Administered Medications: 03:44 Drug: morphine IVP or IV 4 mg IVP once over 4 mins Route: IVP; Infused Over: 4 mins; zm Site: right antecubital; 04:24 Follow up: Response: No adverse reaction zm 03:45 Drug: Ondansetron IVP 4 mg IVP once; over 2 minutes Route: IVP; Site: right antecubital;zm 04:24 Follow up: Response: No adverse reaction zm 03:45 Drug: Famotidine IVP 20 mg IVP once; dilute with 10 mL 0.9% NaCl; give over 2 minutes zm Route: IVP; Site: right antecubital; 04:24 Follow up: Response: No adverse reaction zm 06:20 Drug: Piperacillin-Tazobactam IVPB 3.375 grams IVPB once over 60 mins; (mix in NS 100 bm8 mL) Route: IVPB; Infused Over: 60 mins; Site: left antecubital; 07:20 Follow up: Response: No adverse reaction; IV Status: Completed infusion jl7 06:38 Drug: NS 0.9% IV 1000 ml IV at 125 ml/hr continuous; to be given as a bolus over 60 bm8 minutes Route: IV; Rate: 125 ml/hr; Site: right antecubital; 08:15 Follow up: IV Status: Infusion continued upon admission jl7 Disposition Summary: 01/18/25 05:58 Hospitalization Ordered Notes: Hospitalization Status: Inpatient Admission ms3 Provider: Rafa Villanueva ms3 [facility] ms3 Condition: Stable ms3 Problem: new ms3 Symptoms: are unchanged ms3 Bed/Room Type: Standard ms3 Room Assignment: 429(01/18/25 06:56) eb Diagnosis - Acute cholecystitis ms3 - Essential (primary) hypertension ms3 Forms: - Medication Reconciliation Form ms3 - SBAR form ms3 - Leadership Thank You Letter ms3 Signatures: Dispatcher [employer] Kanika Zurita Marcus, DO DO ms3 Priyanka Godfrey RN RN zm Rafael Bagley RN RN bm8 Dahlia Lobo RN RN br2 Benito Swanson RN jl7 Corrections: (The following items were deleted from the chart) 06:56 05:58 ms3 eb
--- NOTE | 2025-01-18 05:59 | ER ---
Nurse's Notes [facility] Name: Andrew Prasad Age: 59 yrs Sex: Male : 1965 Arrival Date: 01/18/2025 Time: 03:19 Bed 19 Private MD: Diagnosis: Acute cholecystitis;Essential (primary) hypertension Presentation: 01/18 03:27 Chief complaint: Patient states: EPIGASTRIC PAIN (PRESSURE) AND UPPER AB PAIN, br2 NAUSEA/VOMITING X1. Coronavirus screen: Client denies travel out of the [place] in the last 14 days. Ebola Screen: Patient denies exposure to infectious person. Initial Sepsis Screen: Does the patient meet any 2 criteria? No. Patient's initial sepsis screen is negative. Does the patient have a suspected source of infection? No. Patient's initial sepsis screen is negative. Risk Assessment: Do you want to hurt yourself or someone else? Patient reports no desire to harm self or others. Onset of symptoms was January 18, 2025 at 01:30. 03:27 Method Of Arrival: Ambulatory br2 03:27 Acuity: JC 3 br2 Triage Assessment: 03:29 General: Appears uncomfortable, Behavior is cooperative, anxious. Pain: Complains of br2 pain in diaphragm and xiphoid area Pain currently is 9 out of 10 on a pain scale. GI: Reports lower abdominal pain, epigastric pain, nausea, vomiting. Historical: - Allergies: 03:29 Azithromycin; br2 - PMHx: 03:29 Myocardial infarction; br2 - PSHx: 03:29 Appendectomy; Bicep sx; Mitesh knee sx; cardiac stent; hernia; Right shoulder sx; br2 - Immunization history:: Adult Immunizations not up to date. - Infectious Disease History:: Denies. - Social history:: Smoking status: Patient denies any tobacco usage or history of. Patient/guardian denies using alcohol, street drugs. Screenin:45 [facility] ED Fall Risk Assessment (Adult) History of falling in the last 3 months, zm including since admission No falls in past 3 months (0 pts) Confusion or Disorientation No (0 pts) Intoxicated or Sedated No (0 pts) Impaired Gait No (0 pts) Mobility Assist Device Used No (0 pt) Altered Elimination No (0 pt) Score/Fall Risk Level 0 - 2 = Low Risk Oriented to surroundings, Maintained a safe environment, Educated pt \T\ family on fall prevention, incl call for assistance when getting out of bed, Assessed \T\ reinforced patient's understanding of fall precautions, Hourly rounding (assess needs \T\ fall precautionary measures) done, Used ambulatory aids as needed (educated on \T\ assisted with), Used gait belt as appropriate. Abuse screen: Denies threats or abuse. Nutritional screening: No deficits noted. Tuberculosis screening: No symptoms or risk factors identified. Assessment: 03:48 GI: Abdomen is distended, Last BM was January 17, 2025. at 16:00. Last meal was January. at 18:30. Bowel sounds present X 4 quads. Abd is soft and non tender X 4 quads. Reports upper abdominal pain, nausea, normal bowel habits, vomiting. 03:58 General: Appears in no apparent distress. uncomfortable, Behavior is calm, cooperative, zm restless. Pain: Complains of pain in epigastric area, right upper quadrant and left upper quadrant. Pain: Pain currently is 6 out of 10 on a pain scale. Quality of pain is described as pressure, Pain began 4 hours ago. Is continuous. Neuro: No deficits noted. Level of Consciousness is awake, alert, obeys commands, Oriented to person, place, time, situation. Cardiovascular: No deficits noted. Denies chest pain, Capillary refill < 3 seconds in bilateral fingers. Respiratory: No deficits noted. Airway is patent. : No deficits noted. No signs and/or symptoms were reported regarding the genitourinary system. EENT: No deficits noted. No signs and/or symptoms were reported regarding the EENT system. Derm: No deficits noted. No signs and/or symptoms reported regarding the dermatologic system. Skin is intact, is healthy with good turgor, Skin is pink, warm \T\ dry. Musculoskeletal: No deficits noted. No signs and/or symptoms reported regarding the musculoskeletal system. 05:15 Reassessment: Patient appears in no apparent distress at this time. Patient and/or zm family updated on plan of care and expected duration. Pain level reassessed. Patient is alert, oriented x 3, equal unlabored respirations, skin warm/dry/pink. Patient states symptoms have improved. Pain: Complains of pain in epigastric area, right upper quadrant and left upper quadrant Pain currently is 3 out of 10 on a pain scale. 06:21 Reassessment: Patient appears in no apparent distress at this time. Patient and/or bm8 family updated on plan of care and expected duration. Pain level reassessed. Patient is alert, oriented x 3, equal unlabored respirations, skin warm/dry/pink. Patient states feeling better. Patient states symptoms have improved. 07:15 General: Appears in no apparent distress. uncomfortable, Behavior is calm, cooperative, jl7 appropriate for age. Pain: Denies pain. Neuro: Rojas Agitation-Sedation Scale (RASS): 0 - Alert and Calm Level of Consciousness is awake, alert, obeys commands, Oriented to person, place, time, situation. Cardiovascular: Patient's skin is warm and dry. Respiratory: Airway is patent Respiratory effort is even, unlabored, Respiratory pattern is regular, symmetrical. GI: Abdomen is non-distended, Patient currently denies pain. Derm: Skin is pink, warm \T\ dry. Vital Signs: 03:27 BP 178 / 93; Pulse 78; Resp 18; Temp 98.9; Pulse Ox 99% ; Weight 97.52 kg; Height 5 ft. br2 9 in. ; Pain 9/10; 05:16 BP 161 / 86; Pulse 74; Resp 17; Temp 98.3; Pulse Ox 97% on R/A; Pain 3/10; zm 06:21 BP 141 / 78; Pulse 71; Resp 15; Temp 98.3; Pulse Ox 96% ; Pain 4/10; bm8 07:15 BP 127 / 87; Pulse 66; Resp 15; Temp 98; Pulse Ox 95% ; Pain 0/10; jl7 03:27 Body Mass Index 31.75 (97.52 kg, 175.26 cm) br2 03:27 Pain Scale: Adult br2 05:16 Pain Scale: Adult zm 06:21 Pain Scale: Adult bm8 07:15 Pain Scale: Adult jl7 [place] Coma Score: 04:10 Eye Response: spontaneous(4). Motor Response: obeys commands(6). Verbal Response: zm oriented(5). Total: 15. 06:21 Eye Response: spontaneous(4). Motor Response: obeys commands(6). Verbal Response: bm8 oriented(5). Total: 15. ED Course: 03:20 Patient arrived in ED. jj6 03:21 Rafael Bagley, RN is Primary Nurse. bm8 03:22 Espinoza Stubbs DO is Attending Physician. ms3 03:29 Triage completed. br2 03:29 Arm band placed on right wrist. br2 03:44 Initial lab(s) drawn, by me, sent to lab. EKG done, by ED staff, reviewed by Espinoza Stubbs DO. Inserted saline lock: 18 gauge in right antecubital area, using aseptic technique. Blood collected. Flushed with 10 mL NS. 03:44 CBC with Diff Sent. zm 03:44 CMP Sent. zm 03:44 Lipase Sent. zm 03:45 Patient has correct armband on for positive identification. Bed in low position. Call zm light in reach. Side rails up X2. Adult w/ patient. Client placed on continuous cardiac and pulse oximetry monitoring. NIBP monitoring applied. Pulse ox on. NIBP on. Door closed. Noise minimized. Lights dimmed. Verbal reassurance given. Head of bed lowered. 04:33 CT Abd/Pelvis - IV Contrast Only In Process Unspecified. EDMS 05:58 Rafa Villanueva MD is Hospitalizing Provider. ms3 06:21 Provided Education on: need for admission. bm8 06:21 No provider procedures requiring assistance completed. Patient admitted, IV remains in bm8 place. 07:05 Report given to ADELA Oliver. zm 07:42 Maintain EMS IV. Dressing intact. Good blood return noted. Site clean \T\ dry. Gauge \T\ jl 7 site: 18 RAC. Flushed with 10 mL NS. Administered Medications: 03:44 Drug: morphine IVP or IV 4 mg IVP once over 4 mins Route: IVP; Infused Over: 4 mins; Site: right antecubital; 04:24 Follow up: Response: No adverse reaction zm 03:45 Drug: Ondansetron IVP 4 mg IVP once; over 2 minutes Route: IVP; Site: right antecubital;zm 04:24 Follow up: Response: No adverse reaction zm 03:45 Drug: Famotidine IVP 20 mg IVP once; dilute with 10 mL 0.9% NaCl; give over 2 minutes Route: IVP; Site: right antecubital; 04:24 Follow up: Response: No adverse reaction zm 06:20 Drug: Piperacillin-Tazobactam IVPB 3.375 grams IVPB once over 60 mins; (mix in NS 100 bm8 mL) Route: IVPB; Infused Over: 60 mins; Site: left antecubital; 07:20 Follow up: Response: No adverse reaction; IV Status: Completed infusion jl7 06:38 Drug: NS 0.9% IV 1000 ml IV at 125 ml/hr continuous; to be given as a bolus over 60 bm8 minutes Route: IV; Rate: 125 ml/hr; Site: right antecubital; 08:15 Follow up: IV Status: Infusion continued upon admission jl7 Medication: 03:48 VIS not applicable for this client. Outcome: 05:58 Decision to Hospitalize by Provider. ms3 08:14 Admitted to Med/surg accompanied by tech, via wheelchair, room 429, with chart, jl 08:14 Condition: stable 08:14 Discharge instructions given to patient, Instructed on the need for admit, Demonstrated understanding of instructions, 08:15 Patient left the ED. [facility] Signatures: Dispatcher [employer] EDMS Benito Swanson RN RN jl7 Espinoza Stubbs, DO ms3 Brenda Olivarez jj6 Priyanka Godfrey RN RN Rafael Bagley RN RN bm8 Dahlia Lobo RN RN br2 Corrections: (The following items were deleted from the chart) 06:22 06:21 BP 161 / ???; Pulse 71bpm; Resp 15bpm; Pulse Ox 96%; Temp 98.3F; Pain 4/10, bm8 Adult; bm8
[2025-01-18] MEDS ORDERED: NA CHLORIDE 0.9% 100 ML ONE (06:07)
--- NOTE | 2025-01-18 06:32 | RAD REPORT ---
EXAM DESCRIPTION: Abdomen Pelvis W Contrast CLINICAL HISTORY: ABD PAIN COMPARISON: 02/15/2023 TECHNIQUE: CT of the abdomen and pelvis performed following the administration of IV contrast. No ora l contrast. This exam was performed according to our departmental dose-optimization program, which includes automated exposure control, adjustment of the mA and/or kV according to patient size and/or use of iterative reconstruction technique. FINDINGS: Lung Bases: Mild bilateral dependent atelectasis. Abdomen: Liver: Normal contour. There is some relative focal increased density adjacent to the gallbladder pro bably due to area of fatty sparing. No suspicious mass. Gallbladder: Mild gallbladder wall thickening and adjacent fat stranding. Possible punctate calcified gallstone. Spleen, Pancreas, and Adrenal Glands: The spleen, pancreas, and adrenal glands are unremarkable. Kidneys: No suspicious mass. No urinary tract calculi. No hydronephrosis. Vasculature: The aorta and IVC have normal caliber and position. The portal vein is patent. Stomach: The stomach and duodenum have normal course. Pelvis: Bowel: There are a few mildly prominent loops of the left abdomen which could represent a focal ile us or enteritis. No gonzalo bowel obstruction. : Is relatively under distended. Appendix: Surgically absent. Bladder: Under distended. Reproductive: Prostate gland is mildly enlarged. Other: No free intraperitoneal air. No free fluid or lymphadenopathy. Bones: No destructive bone lesions identified. Grade 1 anterolisthesis of L5 on S1 secondary to bilat eral pars defects. IMPRESSION: 1. Mild gallbladder wall thickening and adjacent fat stranding. Possible punctate calcified gallsto ne. Findings are suspicious for acute cholecystitis. Ultrasound could be performed for further evaluation. 2. Few mildly prominent loops of small bowel in the left abdomen could represent a focal ileus or e nteritis. No gonzalo bowel obstruction. Electronically signed by: Barbie Felipe MD 01/18/2025 05:41 AM CDT RP Due to temporary technical issues with the PACS/[employer] reporting system, reports are being basilio d by the in-house radiologist without review as a courtesy to ensure prompt reporting the interpreting radiologist is fully responsible for the content of the report. Transcribed Date/Time: 01/18/2025 6:32 AM
[2025-01-18] MEDS ORDERED: NA CHLORIDE 0.9% 1,000 ML ONE (06:39)
--- NOTE | 2025-01-18 06:52 | P.HP ---
Certification for Inpatient Patient admitted to: Observation With expected LOS: <2 Midnights Patient will require the following post-hospital care: None Practitioner: I am a practitioner with admitting privileges, knowledge of patient current condition, hospital course, and medical plan of care. Services: Services provided to patient in accordance with Admission requirements found in Title 42 Section 412.3 of the Code of Federal Regulations Patient History Date of Service: 01/18/25 Reason for admission: Acute cholecystitis History of Present Illness: 59-year-old male with history of CAD, MOUSTAPHA presents emergency department chief complaint of epigastric pain About 30 minutes after eating. He was evaluated in the ER, labs were significant for a potassium of 3.4 creatinine 1.44 GFR [address] of the abdomen pelvis was performed which showed mild gallbladder wall thickening and adjacent fat stranding possible punctate calcified gallstone. Findings are suspicious for acute cholecystitis. ED provider discussed case with general surgery who will consult patient be admitted for suspected acute cholecystitis. Of note in regards to his CAD he has 2 stents that were placed at the same time in 2016, has not had any issues since and he had a stress test in May that was normal. - Past Medical/Surgical History -: CAD -: MOUSTAPHA -: Bilateral shoulder surgeries, bilateral knee surgeries -: Inspire -: 2 hernia repairs -: Appendectomy Psychosocial/ Personal History: Lives at home with his family, works in construction - Social History Alcohol use: No CD- Drugs: No Caffeine use: No Place of Residence: Home Review of Systems 10-point ROS is otherwise unremarkable Gastrointestinal: Nausea, Abdominal Pain Physical Examination - Physical Exam General: Alert, In no apparent distress, Oriented x3 HEENT: Atraumatic, PERRLA, EOMI Neck: Supple, 2+ carotid pulse no bruit, No LAD Respiratory: Clear to auscultation bilaterally, Normal air movement Cardiovascular: Regular rate/rhythm, Normal S1 S2 Gastrointestinal: Normal bowel sounds, Tenderness (Mild epigastric tenderness) Musculoskeletal: No tenderness Integumentary: No rashes Neurological: Normal gait, Normal speech, Normal strength at 5/5 x4 extr, Normal affect - Studies Laboratory Data (last 24 hrs) 01/18/25 01/18/25 03:33 03:33 WBC 5.90 Hgb 15.8 Hct 48.5 Plt Count 250 Sodium 142 Potassium 3.4 L BUN 23 H Creatinine 1.44 H Glucose 145 H Total Bilirubin 0.4 AST 18 ALT 40 Alkaline Phosphatase 70 Lipase 61 Assessment and Plan - Plan Assessment: Acute cholecystitis History of CAD History of MOUSTAPHA with inspire placed Plan: Acute cholecystitis N.p.o., IVF, surgical consultation Empiric antibiotics, as needed pain medications and antiemetics Plan for operative management during hospitalization History of CAD Only takes baby aspirin daily 2 stents in 2016 Patient stress test in May was normal No cardiac symptoms History of MOUSTAPHA with inspire placed DVT PPX: SCD Code status: Full Discharge Plan: Home Plan to discharge in: 24 Hours - Advance Directives Does patient have a Living Will: No Does patient have a Durable POA for Healthcare: No - Code Status/Comfort Care Code Status Assessed: Yes (Full code) Critical Care: No Time Spent Managing Pts Care (In Minutes): 65
[2025-01-18 08:29] VITALS: BMI 31.7
[2025-01-18] MEDS: NA CHLORIDE 0.9% 1,000 ML IV SCH (08:30)
[2025-01-18] MEDS: MORPHINE 2 MG/ML SYR IV PRN (10:28)
--- NOTE | 2025-01-18 12:12 | OP ---
Date of Procedure: 01/18/2025 Surgeon: Matteo Godfrey MD Diagnoses: Epigastric right upper quadrant pain, acute cholecystitis, symptomatic cholelithiasis. History Of Present Illness: This is the case of a 59-year-old patient, comes to us with epigastric r ight upper quadrant pain radiating to the back associated with nausea and vomiting. This has happene d after eating some shrimps. He has on and off pain, he thought it was related to something else. T his time, the pain was out of control and right now is still there intractable. He denies any recent traveling out of the country, denies any family member sick at home. Denies any dysuria, hematuria, hematochezia, or melena. Review of Systems: Ten points otherwise remarkable. The patient is advised the importance of colonoscopies. Past Medical History: History of CAD with 2 stents in the past. Past Surgical History: Include bilateral shoulder surgeries, knee surgeries, hernia repai r, appendectomy. Social History: He does not smoke. He does not drink alcohol. Family History: Noncontributory. Review of Systems: Nausea, abdominal pain, epigastric pain. See above. Physical Examination: Vital Signs: Temperature is 97.8, pulse 61, respirations 18, blood pressure 141/87. General: The patient is awake and alert. HEENT: Pupils are equal and reactive. Anicteric. Neck: Supple. Chest: Clear. Abdomen: Epigastric right upper quadrant tenderness with Jesus sign positive. Rest of the abdomen is soft and depressible. RECTAL: Deferred. EXTREMITIES: Good capillary refill. Laboratory Data: Blood work shows WBC count of 5.9, hemoglobin of 15.8, platelets of 250. Potassium 2.4, creatinine is 1.44. LFTs within normal limits. CAT scan of the abdomen and pelvis shows gallb ladder wall thickening with adjacent fat stranding with punctate calcified stones. Few mild herniate d loops of small bowel in the left abdomen. Assessment And Plan: Symptomatic cholelithiasis, acute cholecystitis, intractable right upper quadra nt abdominal pain. The benefits, alternatives, and risks of laparoscopic possible open cholecystecto my fully explained to the patient including, but not limited to infection, bleeding, damage to adjace nt structures, anesthesia complication, choledocholithiasis, bile leak, pancreatitis, UT, and . He also understands this may not relieve any symptoms, he might need more than one surgical interven tion. He wants surgery done during this admission. SORAYA/AMALIA Voice ID: [id number] Report ID: [id number]
[2025-01-18] MEDS ORDERED: LIDOCAINE 2% MPF 5 ML VIAL ONE (12:20)
[2025-01-18] MEDS ORDERED: ROCURONIUM 50 MG/5 ML VIAL IV ONE (12:20)
[2025-01-18] MEDS ORDERED: FENTANYL CITR 100 MCG/2 ML ONE (12:20)
[2025-01-18] MEDS ORDERED: SUCCINYLCHOLINE 20 MG/ML (10 ML) IV ONE (12:20)
[2025-01-18] MEDS ORDERED: MIDAZOLAM HCL 2 MG/2 ML INJ ONE (12:20)
[2025-01-18] MEDS: Ringers Lactate 1,000 ML IV ONE (12:45)
[2025-01-18] MEDS: PIPER TAZO 3.375 GM in NA CHLORIDE 0.9% 100 ML IV SCH (12:48)
[2025-01-18] MEDS: PIPERACIL/TAZO 3.375 GM VIAL IV ONE (13:17)
[2025-01-18] MEDS ORDERED: EPHEDRINE SULF 50 MG/ML VIAL ONE (13:26)
[2025-01-18] MEDS: SUGAMMADEX SODIUM 200 MG/2 ML VIAL IV ONE (13:47)
--- NOTE | 2025-01-18 14:08 | P.BOP ---
Preoperative diagnosis: acute cholecystitis, symptomatic cholelithiasis Postoperative diagnosis: same Primary procedure: Laparoscopic cholecystectomy Estimated blood loss: <10cc Specimen: gb Findings: inflammed gallbladder Anesthesia: General Complications: None Drain(s): JAVAD drain Transferred to: Recovery Room Condition: Good
[2025-01-18] MEDS: HYDROMORPHONE HCL 1 MG/ML INJ ONE ×3 (14:49→15:10)
--- NOTE | 2025-01-18 15:07 | OP ---
Date of Procedure: 01/18/2025 Surgeon: Matteo Godfrey MD Preoperative Diagnosis: Acute cholecystitis, symptomatic cholelithiasis. Postoperative Diagnosis: Acute cholecystitis, symptomatic cholelithiasis. Procedure: Laparoscopic cholecystectomy. Estimated Blood Loss: Less than 10 cc. Specimen: Gallbladder. Finding: Inflamed gallbladder. Anesthesia: General plus local. Drains: JAVAD #10. Indications: This is a case of a 59-year-old patient comes to us with above diagnoses. Fully explai criss the benefits, alternatives, and risks of laparoscopic possible open cholecystectomy, which includ e, but not limited to infection, bleeding, damage to adjacent structures, anesthesia complication, ch oledocholithiasis, bile leak, pancreatitis, IA, and . He also understands this may not relieve a ny symptoms, he might need more than one surgical intervention. He understood, signed a consent. Description Of Procedure: Patient was brought to the operating room, placed in supine position. Ane sthesia was done without complication. Abdominal area was prepped and draped in sterile fashion. Ma rcaine 0.5% was injected for local anesthetic followed by sharp incision of the skin in the periumbil ical region. Incision was carried down to fascia, which was opened under direct vision. Peritoneum was encountered and opened under direct vision. Vicryl #1 placed inside the fascia. Kizzy trocar w as carefully introduced. Pneumoperitoneum was obtained. I placed 3 more trocars, 5 mm each one of t hem 1 epigastric area, 2 in the right upper quadrant using same technique which consisted of local an esthetic, sharp incision of the skin, introduction of the trocars under direct vision. We noticed th e gallbladder to be distended, erythematosus. I have to deflate the gallbladder partially to be able to even hold the gallbladder, so I introduce an Endo needle under direct visualization and deflate p unch of the gallbladder and deflated that partially, removed the needle under direct visualization, p ut a grasper in that area in the fundus of the gallbladder, another grasper in infundibulum retractin g the gallbladder in the inferolateral fashion exposing the triangle of Calot, obtaining critical vie w. The cystic duct and cystic artery were clearly isolated and freed circumferentially, and a connec tion between those and the gallbladder were clearly identified. I proceeded to ligate those by using at least 3 clips proximal, 1 clip distal, ligation in middle. Same was done with the cystic artery. A small little branch of the cystic artery was also ligated. Hepatic arteries and common bile duct were protected at all times. The gallbladder removed from the liver using Bovie cauterizer and jennifer chuy from abdominal cavity using EndoCatch through the umbilical incision. The area was inspected onc e again. No bile leak. No bleeding. The gallbladder was removed from abdominal cavity using EndoCa tch through umbilical incision. The area was inspected once again. Due to all the inflammation in t hat region, I left a JAVAD drain exiting through 1 of the trocar sites, securing that in place with 3-0 nylon. We deflated the pneumoperitoneum. Closed the fascia #1 Vicryl, irrigated subcutaneous tissue , closed with 3-0 chromic and skin with zaida. Sponge count, instrument counts correct. Patient t olerated the procedure well. Patient was in his way to recovery in stable condition. SORAYA/AMALIA Voice ID: [id number] Report ID: [id number]
[2025-01-19 05:39] LABS: Absolute Lymphocytes (CBC) 1.6 K/uL (0.7-4.9); Hematocrit 41.6 % (39.6-49.0); Hemoglobin 14.0 g/dL (13.6-17.9); MCH 28.7 pg (27.0-35.0); MCHC 33.5 g/dL (32.0-36.0); MCV 85.5 fL (80-100); MPV 8.5 fL (7.6-11.3); Nucleated RBC Absolute Count 0.0 (0-0); Nucleated Red Blood Cells % 0.0 % (0-0); RBC Red Blood Cell Count 4.87 M/uL (4.33-5.43); White Blood Count 7.50 thou/uL (4.3-10.9)
[2025-01-19 06:02] LABS: ALT/SGPT 65.0 U/L (16-61); AST/SGOT 50.0 U/L (15-37); Albumin 3.2 g/dL (3.4-5.0); Albumin/Globulin Ratio 1.3 (1.1-1.8); Alkaline Phosphatase 60.0 U/L (45-117); Anion Gap 8.8 mEq/L (5.0-15.0); BUN Blood Urea Nitrogen 11.0 mg/dL (7-18); Globulin 2.4 g/dL (2.3-3.5); Glucose Level 99.0 mg/dL (74-106); Potassium 3.8 mEq/L (3.5-5.1)
[2025-01-19] MEDS: HYDROCODONE/APAP 5/325 MG TAB PO PRN (06:22)
[2025-01-19] MEDS: POTASSIUM CL SA 10 MEQ TAB PO ONE (08:11)
--- NOTE | 2025-01-19 15:05 | P.PN ---
Date of Service: 01/19/25 Subjective: Having some abdominal soreness after surgery Tolerating diet, passing gas, urinating freely No other acute events overnight ROS: 10 point ROS as noted above, otherwise negative Physical exam GEN: Alert, oriented, NAD HEENT: Normal conjunctiva, sclera anicteric CV: Regular rate and rhythm, no edema Pulm: Nonlabored respirations on room air ABD: Soft, nontender, nondistended, JAVAD drain in place, abdominal dressings in place CDI MSK: No joint tenderness Integumentary: No rashes Neuro: Normal speech, normal affect Vitals reviewed Assessment: Acute cholecystitis status post laparoscopic cholecystectomy 01/18 History of CAD History of MOUSTAPHA with inspire placed Plan: Acute cholecystitis status post laparoscopic cholecystectomy 01/18 Doing well postoperatively T. bili stcaey to 1.6 today JAVAD drain in place Repeat LFTs in the morning, advance diet If LFTs continue to rise consider MRCP, if improving can likely discharge tomorrow History of CAD Only takes baby aspirin daily 2 stents in 2016 Patient stress test in May was normal No cardiac symptoms History of MOUSTAPHA with inspire placed DVT PPX: SCD Code status: Full Discharge Plan: Home Plan to discharge in: 24 Hours Time Spent Managing Pts Care (In Minutes): 35
[2025-01-19] MEDS: HYDROCODONE/APAP 10/325 TAB PO PRN (19:42)
[2025-01-20 05:47] LABS: Absolute Lymphocytes (CBC) 1.7 K/uL (0.7-4.9); Hematocrit 43.1 % (39.6-49.0); Hemoglobin 14.6 g/dL (13.6-17.9); MCH 28.9 pg (27.0-35.0); MCHC 33.9 g/dL (32.0-36.0); MCV 85.2 fL (80-100); MPV 8.3 fL (7.6-11.3); Nucleated RBC Absolute Count 0.0 (0-0); Nucleated Red Blood Cells % 0.0 % (0-0); RBC Red Blood Cell Count 5.06 M/uL (4.33-5.43); White Blood Count 7.20 thou/uL (4.3-10.9)
[2025-01-20 06:11] LABS: ALT/SGPT 86.0 U/L (16-61); AST/SGOT 54.0 U/L (15-37); Albumin 3.4 g/dL (3.4-5.0); Albumin/Globulin Ratio 1.4 (1.1-1.8); Alkaline Phosphatase 67.0 U/L (45-117); Anion Gap 8.0 mEq/L (5.0-15.0); BUN Blood Urea Nitrogen 10.0 mg/dL (7-18); Globulin 2.5 g/dL (2.3-3.5); Glucose Level 96.0 mg/dL (74-106); Potassium 4.0 mEq/L (3.5-5.1)
[2025-01-20 08:12] VITALS: BP 152/91; TEMP 98.3
[2025-01-20] MEDS: ONDANSETRON 4 MG/2 ML VIAL IV PRN (08:13)
[2025-01-20 09:52] VITALS: O2SAT 95
--- NOTE | 2025-01-20 10:12 | P.DS ---
Admission Date: 01/19/25 Discharge Date: 01/20/25 Disposition: ROUTINE DISCHARGE Discharge Condition: GOOD Reason for Admission: Acute cholecystitis Brief History of Present Illness: 59-year-old male with history of CAD, MOUSTAPHA presents emergency department chief complaint of epigastric pain About 30 minutes after eating. He was evaluated in the ER, labs were significant for a potassium of 3.4 creatinine 1.44 GFR [address] of the abdomen pelvis was performed which showed mild gallbladder wall thickening and adjacent fat stranding possible punctate calcified gallstone. Findings are suspicious for acute cholecystitis. ED provider discussed case with general surgery who will consult patient be admitted for suspected acute cholecystitis. Of note in regards to his CAD he has 2 stents that were placed at the same time in 2016, has not had any issues since and he had a stress test in May that was normal. Hospital Course: Assessment: Acute cholecystitis status post laparoscopic cholecystectomy 01/18 History of CAD History of MOUSTAPHA with inspire placed Patient was admitted to the hospital for acute cholecystitis, he underwent laparoscopic cholecystectomy on 01/18 in the evening. He was observed in the hospital, the next morning his LFTs/T. bili stacey from 0.4-1.7. For that reason he was observed for 1 day in the hospital for monitoring and repeat blood work. His T. bili came down to 1.2 and patient is doing well. He is stable for discharge and outpatient follow-up with Dr. Godfrey in the office on 01/22 to have his JAVAD drain removed. Continue home occasions as previous prescribed Prescription for antibiotic, pain medication sent to pharmacy Please follow-up with Dr. Godfrey on 01/22 in the office Vital Signs/Physical Exam: Temp Pulse Resp BP Pulse Ox 98.3 F 71 16 152/91 H 95 01/20/25 08:00 01/20/25 08:00 01/20/25 08:00 01/20/25 08:00 01/20/25 08:00 General: Alert, In no apparent distress, Oriented x3 HEENT: Atraumatic, PERRLA Neck: Supple, JVD not distended Respiratory: Clear to auscultation bilaterally, Normal air movement Cardiovascular: Regular rate/rhythm, Normal S1 S2 Gastrointestinal: Normal bowel sounds, No tenderness, Other (JAVAD drain in place) Musculoskeletal: No tenderness Integumentary: No rashes Neurological: Normal speech, Normal affect Laboratory Data at Discharge: WBC 7.20 thou/uL (4.3-10.9) 01/20/25 05:25 Hgb 14.6 g/dL (13.6-17.9) 01/20/25 05:25 Hct 43.1 % (39.6-49.0) 01/20/25 05:25 Plt Count 207 thou/uL (152-406) 01/20/25 05:25 Sodium 139 mEq/L (136-145) 01/20/25 05:25 Potassium 4.0 mEq/L (3.5-5.1) 01/20/25 05:25 BUN 10 mg/dL (7-18) 01/20/25 05:25 Creatinine 1.30 mg/dL (0.70-1.30) 01/20/25 05:25 Glucose 96 mg/dL (74-106) 01/20/25 05:25 Total Bilirubin 1.2 mg/dL (0.2-1.0) H 01/20/25 05:25 AST 54 U/L (15-37) H 01/20/25 05:25 ALT 86 U/L (16-61) H 01/20/25 05:25 Alkaline Phosphatase 67 U/L (45-117) 01/20/25 05:25 Lipase 61 U/L (13-75) 01/18/25 03:33 Home Medications: Aspirin 81 mg PO DAILY 01/18/25 Amox/Clavulanate [Augmentin 875-125 Tab] 875 mg PO BID 5 Days #10 tab 01/20/25 Hydrocodone 7.5/APAP 325 [[place] 7.5/325 mg] 1 tab PO Q6H PRN #15 tab 01/20/25 New Medications: Amox/Clavulanate [Augmentin 875-125 Tab] 875 mg PO BID 5 Days #10 tab Hydrocodone 7.5/APAP 325 [[place] 7.5/325 mg] 1 tab PO Q6H PRN #15 tab PRN Reason: Pain Physician Discharge Instructions: Patient was admitted to the hospital for acute cholecystitis, he underwent laparoscopic cholecystectomy on 01/18 in the evening. He was observed in the hospital, the next morning his LFTs/T. bili stacey from 0.4-1.7. For that reason he was observed for 1 day in the hospital for monitoring and repeat blood work. His T. bili came down to 1.2 and patient is doing well. He is stable for discharge and outpatient follow-up with Dr. Godfrey in the office on 01/22 to have his JAVAD drain removed. Continue home occasions as previous prescribed Prescription for antibiotic, pain medication sent to pharmacy Please follow-up with Dr. Godfrey on 01/22 in the office Diet: [place] Activity: Ad ashli Followup: Matteo Godfrey MD [ACTIVE - CAN ADMIT] - 01/22/25 NONE,NONE [Primary Care Provider] - Time spent managing pt's care (in minutes): 37
== END 2025-01-20 12:02 | disposition home or self-care (01) | DRG 419 ==
LOC: ER 03:19 → 4TH 06:45 → OBSVTOIN 01-19 11:57
PROVIDERS: ADMIT Hospitalist; ATTEND Hospitalist
PROC: 0FT44ZZ Resection of Gallbladder, Percutaneous Endoscopic Approach (ICD-10-PCS; principal; 2025-01-18 14:15)
DX: K80.00 Calculus of gallbladder with acute cholecystitis without obstruction (principal); I25.2 Old myocardial infarction; Z88.1 Allergy status to other antibiotic agents; Z90.49 Acquired absence of other specified parts of digestive tract; Z95.5 Presence of coronary angioplasty implant and graft; Z98.890 Other specified postprocedural states; I10 Essential (primary) hypertension; I25.10 Atherosclerotic heart disease of native coronary artery without angina pectoris; G47.33 Obstructive sleep apnea (adult) (pediatric); Z79.82 Long term (current) use of aspirin
CPT/HCPCS: 36415; 74177; 80053; 83690; 85025; 88304; 93005; 94010; 96361; 96365; 96375; 99285; G0378; J0330; J1171; J2003; J2250; J2270; J2405; J2543; J2704; J3010; J7030; J7120; Q9967

== ENCOUNTER 2025-03-04 08:52 | Day surgery (SDC) | payer BC ==
[2025-03-04 08:54] LABS: Absolute Lymphocytes (CBC) 2.6 K/uL (0.7-4.9); Hematocrit 49.8 % (39.6-49.0); Hemoglobin 16.3 g/dL (13.6-17.9); MCH 27.7 pg (27.0-35.0); MCHC 32.8 g/dL (32.0-36.0); MCV 84.5 fL (80-100); MPV 8.3 fL (7.6-11.3); Nucleated RBC Absolute Count 0.0 (0-0); Nucleated Red Blood Cells % 0.1 % (0-0); RBC Red Blood Cell Count 5.89 M/uL (4.33-5.43); White Blood Count 7.70 thou/uL (4.3-10.9)
[2025-03-04 09:08] LABS: Anion Gap 6.2 mEq/L (5.0-15.0); BUN Blood Urea Nitrogen 14.0 mg/dL (7-18); Glucose Level 99.0 mg/dL (74-106); Potassium 4.2 mEq/L (3.5-5.1)
[2025-03-04] MEDS: Ringers Lactate 1,000 ML IV ONE (09:28)
[2025-03-04] MEDS ORDERED: MIDAZOLAM HCL 2 MG/2 ML INJ ONE (09:30)
[2025-03-04] MEDS ORDERED: FENTANYL CITR 100 MCG/2 ML ONE (09:31)
[2025-03-04] MEDS ORDERED: LIDOCAINE 2% MPF 5 ML VIAL ONE (09:50)
[2025-03-04] MEDS ORDERED: ONDANSETRON 4 MG/2 ML VIAL ONE (10:11)
[2025-03-04] MEDS ORDERED: KETOROLAC 30 MG/ML INJ ONE (10:11)
[2025-03-04] MEDS: HYDROMORPHONE HCL 1 MG/ML INJ ONE (10:54)
[2025-03-04 14:32] VITALS: BP 130/91; TEMP 97; O2SAT 97
--- NOTE | 2025-03-04 14:35 | OP ---
Date of Procedure: 03/04/2025 Surgeon: Kolton Dill MD Preoperative Diagnosis: Right third trigger digit. Postoperative Diagnosis: Right third trigger digit. Procedure Performed: Release of right third trigger digit. Estimated Blood Loss: Less than 3 cc. Complications: There were no complications. Specimens: No pathology specimens sent. Indications For Operation: The patient is a 59-year-old gentleman who has complaints of locking and pain related to his right third digit. He has previously had an injection about a year ago, which wa s beneficial for some time. Unfortunately, this recurred and now presented to my office. Risks, ramon efits, and alternatives of repeat injection versus release had been discussed with him. He has decid ed that he would like to have this released as he is essentially tired of it as being a problem and u nderstands the risks and agrees to proceed. Description Of Procedure: The patient was taken to the operating room, placed in supine position. G eneral anesthesia was obtained by Anesthesia staff. Following this, a well-padded tourniquet was brad vikas on superior right arm. Right upper extremity was then prepped and draped in the usual sterile fa shion for the procedure. Following this, the arm was then elevated, but not exsanguinated. Tourniqu et was raised. The position of the A1 zayda was palpated and using standard anatomic landmarks, a t ransverse incision was made very carefully through skin only. Meticulous hemostasis being maintained using bipolar electrocautery. This was followed by blunt spreading using a mosquito, which allowed for visualization of the tendon, tendon sheath, and A1 zayda. When the A1 zayda was identified, th en a small lesley was made in the midsubstance and then it was then divided in a proximal to distal dir ection until there were no constricting bands. It was then exposed and divided in a distal to proxim al direction until there were no constricting bands. Both leaves of the A1 zayda were easily seen a nd separable. Following this, the finger was brought through full range of motion. There was found to be no abnormal tendon motion. The wounds were gently irrigated and closed using nylon sutures. T he patient was placed in a well-padded sterile dressing, awakened, and taken to recovery room in good condition. No complications. SE/MODL Voice ID: [id number] Report ID: [id number]
== END 2025-03-04 12:10 | disposition home or self-care (01) ==
LOC: OR 08:52
PROVIDERS: ATTEND Orthopaedic Surgery
PROC: 0LN70ZZ Release Right Hand Tendon, Open Approach (ICD-10-PCS; principal; 2025-03-04 09:45)
DX: M65.331 Trigger finger, right middle finger (principal)
CPT/HCPCS: 93005; 85025; 80048; 36415; 26055; J2704; J1100; J2003; J2250; J3010; J1171; J2405; J7120; J1885